=== PATIENT | female | born 1940 | race Caucasian/White ===

== ENCOUNTER 2024-05-06 15:22 | Outpatient (AMB) | payer MEDICARE, OTHER, SELFPAY ==
--- NOTE | 2024-05-06 15:30 | HO.NEPHOV ---
Vital Signs 05/06/24 15:32 Height 5 ft 8 in Weight 216 lb 8 oz BMI 32.9 BP 124/60 Blood Pressure Location Rt brachial Position Sitting Pulse 57 Pulse Source Pulse Oximeter Pulse Oximetry (%) 97 Oxygen Delivery Method Room Air Intake Visit Reasons: Transferring care from Dr Rivera [employer] Operations Manager Required: No Accompanied by: Daughter Allergies adhesive [BANDAGE,ADHESIVE] Allergy (Unknown, Verified 05/06/24 15:35) TOOK OFF THE SKIN empagliflozin [From Synjardy] Allergy (Verified 05/06/24 15:35) Unknown levofloxacin [From LEVAQUIN] Adverse Reaction (Unknown, Verified 05/06/24 15:35) VOMITING atorvastatin [From Lipitor] Adverse Reaction (Verified 05/06/24 15:35) Unknown HPI Comments Details: I had the privilege of seeing Jessica in consultation and transfer of her renal care to me. She is 84 years of age with CAD needing cardiac surgery. She has long standing DM as well hypertension with CKD. Her serum creatinine last year was 1.6. She denies chest pain, SOB, PND, orthopnea, edema, orthostatic symptoms, new bone or back pain, regular NSAID intake, renal calculi, new skin rashes, photosensitivity, epistaxis, joint swellings, hematuria or hypoglycemias. She claims to be compliant with her medications. She denies any symptoms of CVA, CHF, symptoms of PAD. She feels well [facility] Surgical History (Updated 05/06/24 @ 15:37 by Estrellita Lewis MA) History of knee surgery H/O repair of rotator cuff H/O aortic valve replacement Family History (Updated 05/06/24 @ 15:39 by Estrellita Lewis MA) Mother Heart disease Hypertension Father Heart disease Hypertension Daughter Diabetes Kidney transplanted Social History (Updated 05/06/24 @ 15:39 by Estrellita Lewis MA) Alcohol intake: current Comment: Rare Patient Tobacco Use Status: Never used Tobacco Review of Systems Const All systems reviewed & are unremarkable except as noted in HPI and below Physical Exam Vital Signs: Last Vital Signs Pulse 57 05/06/24 15:32 BP 124/60 05/06/24 15:32 Pulse Ox 97 05/06/24 15:32 Oxygen Delivery Method Room Air 05/06/24 15:32 BMI result Body Mass Index 32.9 Const General: comfortable and no acute distress Orientation/consciousness: patient oriented x3 HEENT Head: Yes normocephalic Mouth: Normal oral and palatal mucosa present Eyes EOM: EOMs intact bilaterally Neck Neck: Yes supple Resp Auscultation: clear to auscultation bilaterally Cardio Jugular venous distension: no JVD Rate: regular rate GI Palpation (GI): Soft to palpation Auscultation: normal bowel sounds General: Yes no CVA tenderness Back/Spine/Pelvis Back: no CVA tenderness Skin General skin exam: no rashes or lesions noted Neuro General: patient oriented x3 and moves all extremities Extrem General: Yes no pedal edema Results Reviewed Nephrology Results: No Data to Display Assessment & Plan Assessment & Plan (1) CKD stage 3a, GFR 45-59 ml/min: Code(s): N18.31 - Chronic kidney disease, stage 3a Category: Medical (2) Hypertension: Code(s): I10 - Essential (primary) hypertension Category: Medical Qualifiers: Hypertension type: primary hypertension Qualified Code(s): I10 - Essential (primary) hypertension Plan 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 She has good Urine output. She is euvolemic. Her BP has been at goal. She is a great candidate for Jardiance/Farxiga. She should maintain good hydration and avoids NSAID's. Follow up blood work ordered. Plan to do renal imaging at next visit. Time spent retreiving data from [facility] [place], old renal records, patient encounter, documentation 57 minutes. All questions answered. Follow up given Orders: Orders Phosphorus Today I10 - Essential (primary) hypertension, N18.31 - Chronic kidney disease, stage 3a Creatinine Today I10 - Essential (primary) hypertension, N18.31 - Chronic kidney disease, stage 3a Blood Urea Nitrogen Today I10 - Essential (primary) hypertension, N18.31 - Chronic kidney disease, stage 3a Electrolytes Today I10 - Essential (primary) hypertension, N18.31 - Chronic kidney disease, stage 3a Calcium Today I10 - Essential (primary) hypertension, N18.31 - Chronic kidney disease, stage 3a Complete Blood Count Auto Diff Today I10 - Essential (primary) hypertension, N18.31 - Chronic kidney disease, stage 3a Parathyroid Hormone Intact Today I10 - Essential (primary) hypertension, N18.31 - Chronic kidney disease, stage 3a Vitamin D 25-OH Total Today I10 - Essential (primary) hypertension, N18.31 - Chronic kidney disease, stage 3a Protein Creatinine Ratio, Ur Today I10 - Essential (primary) hypertension, N18.31 - Chronic kidney disease, stage 3a Medications: New spironolactone 50 mg PO DAILY 90 tabs 4RF Coding Level of Care Code New Pt Level 5 (86538) Diagnoses CKD stage 3a, GFR 45-59 ml/min N18.31 Primary hypertension I10 Hypertension type: primary hypertension
[2024-05-06 15:32] VITALS: BP 124/60; PULSE 57; O2SAT 97; BMI 32.9
== END 2024-05-06 16:15 | disposition home or self-care (01) ==
PROVIDERS: PCP Internal Medicine; Visit Provider Internal Medicine Nephrology
DX: I12.9 Hypertensive chronic kidney disease with stage 1 through stage 4 chronic kidney disease, or unspecified chronic kidney disease (principal); E11.22 Type 2 diabetes mellitus with diabetic chronic kidney disease; N18.31 Chronic kidney disease, stage 3a
CPT/HCPCS: 99204

== ENCOUNTER → 2024-05-06 15:22 | Outpatient (BNVA) | payer MEDICARE, OTHER, SELFPAY | PROVIDERS: PCP Internal Medicine; Visit Provider Internal Medicine Nephrology | DX: E11.22 Type 2 diabetes mellitus with diabetic chronic kidney disease (principal); I12.9 Hypertensive chronic kidney disease with stage 1 through stage 4 chronic kidney disease, or unspecified chronic kidney disease; N18.31 Chronic kidney disease, stage 3a | CPT/HCPCS: 99202 ==

== ENCOUNTER 2024-06-07 09:26 | Outpatient (REF) | payer MEDICARE, OTHER, SELFPAY ==
[2024-06-07 09:56] LABS: MANUAL DIFF FLAG NO
[2024-06-07 10:55] LABS: Basophils Absolute Auto 0.1 X10*3/uL (0.0-0.2); Basophils Percent Auto 0.6 % (0-2); Eosinophils Absolute Auto 0.7 X10*3/uL (0.0-0.4); Eosinophils Percent Auto 8.5 % (0-4); Hematocrit 37.3 % (37.0-47.0); Imm Gran Abs Auto 0.03 X10*3/uL (0.00-0.03); Imm Gran Pct Auto 0.4 % (0.0-0.4); Lymphocytes Absolute Auto 2.3 X10*3/uL (1.2-4.9); Lymphocytes Percent Auto 28.7 % (20-40); Mean Corpuscular HGB Conc 32.2 g/dl (31.0-35.0); Mean Corpuscular Volume 96.4 fL (80.0-98.0); Monocytes Absolute Auto 0.7 X10*3/uL (0.1-1.2); Monocytes Percent Auto 9.2 % (2-11); Neutrophils Absolute Auto 4.2 x10*3/uL (2.0-8.3); Neutrophils Percent Auto 52.6 % (45-73); Platelet Count 133 X10*3/uL (160-400); Red Blood Count 3.87 X10*6/uL (4.20-5.50); Red Cell Distribution Width 13.9 % (11.0-16.0); White Blood Count 7.9 X10*3/uL (4.8-10.8)
[2024-06-07 11:23] LABS: Parathyroid Hormone Intact 112.4 pg/mL (8.7-77.1)
[2024-06-07 11:29] LABS: Anion Gap 13 (12-20); Blood Urea Nitrogen 31 mg/dL (9-16); Calcium 9.4 mg/dL (8.4-10.2); Carbon Dioxide 25 mmol/L (22-29); Chloride 109 mmol/L (96-108); Estimated Glomerular Filt Rate 20; Phosphorus 3.6 mg/dL (2.7-4.5); Potassium 4.4 mmol/L (3.3-5.1); Sodium 143 mmol/L (135-145)
[2024-06-07 11:50] LABS: Vitamin D 25-OH Total 58.1 ng/mL (>30)
== END 2024-06-07 09:27 | disposition home or self-care (01) ==
LOC: HO.LAB 09:26
PROVIDERS: Internal Medicine Nephrology; PCP Internal Medicine; Visit Provider Internal Medicine
DX: N18.31 Chronic kidney disease, stage 3a (principal); I10 Essential (primary) hypertension
CPT/HCPCS: 36415; 80051; 82306; 82310; 82565; 83970; 84100; 84520; 85025

== ENCOUNTER 2024-06-30 09:55 | Outpatient (REF) | payer MEDICARE, OTHER, SELFPAY ==
[2024-06-30 11:30] LABS: Anion Gap 16 (12-20); Blood Urea Nitrogen 32 mg/dL (9-16); Carbon Dioxide 17 mmol/L (22-29); Chloride 111 mmol/L (96-108); Estimated Glomerular Filt Rate 22; Potassium 4.6 mmol/L (3.3-5.1); Sodium 139 mmol/L (135-145)
[2024-06-30 12:07] LABS: Creatinine Urine 84.63 mg/dL; Protein/Creatinine Ratio, Ur 0.95 (<0.2); Total Protein Urine Random 80 mg/dL (<12)
== END 2024-06-30 09:56 | disposition home or self-care (01) ==
LOC: HO.LAB 09:55
PROVIDERS: PCP Internal Medicine; Visit Provider Internal Medicine Nephrology
DX: I12.9 Hypertensive chronic kidney disease with stage 1 through stage 4 chronic kidney disease, or unspecified chronic kidney disease (principal); N18.31 Chronic kidney disease, stage 3a
CPT/HCPCS: 36415; 80051; 82565; 82570; 84156; 84520

== ENCOUNTER 2024-07-26 10:43 | Outpatient (REF) | payer MEDICARE, OTHER, SELFPAY ==
[2024-07-26 12:58] LABS: Anion Gap 16 (12-20); Blood Urea Nitrogen 45 mg/dL (9-16); Carbon Dioxide 14 mmol/L (22-29); Chloride 113 mmol/L (96-108); Estimated Glomerular Filt Rate 11; Potassium 4.5 mmol/L (3.3-5.1); Sodium 138 mmol/L (135-145)
== END 2024-07-26 10:44 | disposition home or self-care (01) ==
LOC: HO.LAB 10:43
PROVIDERS: PCP Internal Medicine; Visit Provider Internal Medicine Nephrology
DX: N18.31 Chronic kidney disease, stage 3a (principal); I10 Essential (primary) hypertension
CPT/HCPCS: 36415; 80051; 82565; 84520

== ENCOUNTER 2024-07-27 14:16 | Outpatient (AMB) | payer MEDICARE, OTHER, SELFPAY ==
--- NOTE | 2024-07-27 14:50 | HO.NEPHOV ---
Vital Signs 07/27/24 14:52 Height 5 ft 8 in Weight 209 lb BMI 31.8 BP 122/70 Blood Pressure Location Lt brachial Position Sitting Pulse 66 Pulse Source Pulse Oximeter Pulse Oximetry (%) 97 Oxygen Delivery Method Room Air Intake Visit Reasons: CKD District Court Administrator Required: No Accompanied by: Self / Same As Patient Allergies adhesive [BANDAGE,ADHESIVE] Allergy (Unknown, Verified 07/27/24 14:51) TOOK OFF THE SKIN empagliflozin [From Synjardy] Allergy (Verified 07/27/24 14:51) Unknown levofloxacin [From LEVAQUIN] Adverse Reaction (Unknown, Verified 07/27/24 14:51) VOMITING atorvastatin [From Lipitor] Adverse Reaction (Verified 07/27/24 14:51) Unknown HPI Comments Details: Jessica was seen in follow up for CKD . She is 84 years of age with CAD needing cardiac surgery. She has long standing DM as well hypertension with CKD. Her serum creatinine last year was 1.6 which has been progressing . She denies chest pain, SOB, PND, orthopnea, edema, orthostatic symptoms, new bone or back pain, regular NSAID intake, renal calculi, new skin rashes, photosensitivity, epistaxis, joint swellings, hematuria or hypoglycemias. She claims to be compliant with her medications. She denies any symptoms of CVA, CHF, symptoms of PAD. She feels well except for low blood sugars [facility] Surgical History History of knee surgery H/O repair of rotator cuff H/O aortic valve replacement Family History Mother Heart disease Hypertension Father Heart disease Hypertension Daughter Diabetes Kidney transplanted Social History Alcohol intake: current Comment: Rare Patient Tobacco Use Status: Never used Tobacco Review of Systems Const All systems reviewed & are unremarkable except as noted in HPI and below Physical Exam Vital Signs: Last Vital Signs Pulse 66 07/27/24 14:52 BP 122/70 07/27/24 14:52 Pulse Ox 97 07/27/24 14:52 Oxygen Delivery Method Room Air 07/27/24 14:52 BMI result Body Mass Index 31.8 Const General: comfortable and no acute distress Orientation/consciousness: patient oriented x3 HEENT Head: Yes normocephalic Mouth: Normal oral and palatal mucosa present Eyes EOM: EOMs intact bilaterally Neck Neck: Yes supple Resp Auscultation: clear to auscultation bilaterally Cardio Jugular venous distension: no JVD Rate: regular rate GI Palpation (GI): Soft to palpation Auscultation: normal bowel sounds General: Yes no CVA tenderness Back/Spine/Pelvis Back: no CVA tenderness Skin General skin exam: no rashes or lesions noted Neuro General: patient oriented x3 and moves all extremities Extrem General: Yes no pedal edema Results Reviewed Nephrology Results: Hgb 12.0 g/dl (12.0-16.0) 06/07/24 WBC 7.9 X10*3/uL (4.8-10.8) 06/07/24 Plt Count 133 X10*3/uL (160-400) L 06/07/24 Sodium 138 mmol/L (135-145) 07/26/24 Potassium 4.5 mmol/L (3.3-5.1) 07/26/24 Chloride 113 mmol/L (96-108) H 07/26/24 Carbon Dioxide 14 mmol/L (22-29) L 07/26/24 BUN 45 mg/dL (9-16) H 07/26/24 Creatinine 3.77 mg/dL (0.5-1.4) H 07/26/24 Calcium 9.4 mg/dL (8.4-10.2) 06/07/24 Phosphorus 3.6 mg/dL (2.7-4.5) 06/07/24 PTH Intact 112.4 pg/mL (8.7-77.1) H 06/07/24 Urine Creatinine 84.63 mg/dL 06/30/24 Protein/Creatinin Ratio 0.95 (<0.2) H 06/30/24 Assessment & Plan Assessment & Plan (1) DINO (acute kidney injury): Code(s): N17.9 - Acute kidney failure, unspecified Category: Medical (2) Hypertension: Code(s): I10 - Essential (primary) hypertension Category: Medical Qualifiers: Hypertension type: primary hypertension Qualified Code(s): I10 - Essential (primary) hypertension (3) CKD stage 3a, GFR 45-59 ml/min: Code(s): N18.31 - Chronic kidney disease, stage 3a Category: Medical Plan 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 She has good urine output. She has DINO now, most likely due to tubular injury. Differential diagnosis is progression of her renal disease. I asked her to hold lasix, vitamin C, Gabapentin ( as she is having tremors) and reduce Metformin to 500 mg bid. I also started her on NaHCO3 650 mg bid given metabolic acidosis. She is euvolemic. She is a great candidate for Jardiance/Farxiga once her renal function is back to baseline. She should maintain good hydration and avoids NSAID's. Follow up blood work ordered. Plan to do renal imaging at next visit, if needed. All questions answered. Follow up given Orders: Orders Creatinine 2 Weeks I10 - Essential (primary) hypertension, N17.9 - Acute kidney failure, unspecified, N18.31 - Chronic kidney disease, stage 3a Electrolytes 2 Weeks I10 - Essential (primary) hypertension, N17.9 - Acute kidney failure, unspecified, N18.31 - Chronic kidney disease, stage 3a Blood Urea Nitrogen 2 Weeks I10 - Essential (primary) hypertension, N17.9 - Acute kidney failure, unspecified, N18.31 - Chronic kidney disease, stage 3a Medications: New sodium bicarbonate 650 mg PO BID 30 tabs 1RF Coding Level of Care Code Est Pt Level 4 (56663) Diagnoses DINO (acute kidney injury) N17.9 Primary hypertension I10 Hypertension type: primary hypertension CKD stage 3a, GFR 45-59 ml/min N18.31
[2024-07-27 14:52] VITALS: BP 122/70; PULSE 66; O2SAT 97; BMI 31.8
== END 2024-07-27 15:19 | disposition home or self-care (01) ==
PROVIDERS: PCP Internal Medicine; Visit Provider Internal Medicine Nephrology
DX: N17.9 Acute kidney failure, unspecified (principal); I12.9 Hypertensive chronic kidney disease with stage 1 through stage 4 chronic kidney disease, or unspecified chronic kidney disease; N18.31 Chronic kidney disease, stage 3a
CPT/HCPCS: 99214

== ENCOUNTER → 2024-07-27 14:16 | Outpatient (BNVA) | payer MEDICARE, OTHER, SELFPAY | PROVIDERS: PCP Internal Medicine; Visit Provider Internal Medicine Nephrology | DX: I12.9 Hypertensive chronic kidney disease with stage 1 through stage 4 chronic kidney disease, or unspecified chronic kidney disease (principal); N18.31 Chronic kidney disease, stage 3a; N17.9 Acute kidney failure, unspecified | CPT/HCPCS: 99212 ==

== ENCOUNTER 2024-08-11 13:38 | Outpatient (REF) | payer MEDICARE, OTHER, SELFPAY ==
[2024-08-11 14:29] LABS: Anion Gap 17 (12-20); Blood Urea Nitrogen 32 mg/dL (9-16); Carbon Dioxide 19 mmol/L (22-29); Chloride 110 mmol/L (96-108); Estimated Glomerular Filt Rate 13; Potassium 3.6 mmol/L (3.3-5.1); Sodium 142 mmol/L (135-145)
== END 2024-08-11 13:39 | disposition home or self-care (01) ==
LOC: HO.LAB 13:38
PROVIDERS: PCP Internal Medicine; Visit Provider Internal Medicine Nephrology
DX: N17.9 Acute kidney failure, unspecified (principal); I10 Essential (primary) hypertension; N18.31 Chronic kidney disease, stage 3a
CPT/HCPCS: 36415; 80051; 82565; 84520

== ENCOUNTER 2024-08-12 10:42 | Outpatient (AMB) | payer MEDICARE, OTHER, SELFPAY ==
--- NOTE | 2024-08-12 11:14 | HO.NEPHOV ---
Vital Signs 08/12/24 11:15 Height 5 ft 8 in Weight 205 lb BMI 31.2 BP 100/60 Blood Pressure Location Rt brachial Position Sitting Pulse 53 Pulse Source Pulse Oximeter Pulse Oximetry (%) 98 Oxygen Delivery Method Room Air Intake Visit Reasons: CKD-conf Loss Prevention Supervisor Required: No Accompanied by: Daughter Allergies adhesive [BANDAGE,ADHESIVE] Allergy (Unknown, Verified 08/12/24 11:15) TOOK OFF THE SKIN empagliflozin [From Synjardy] Allergy (Verified 08/12/24 11:15) Unknown levofloxacin [From LEVAQUIN] Adverse Reaction (Unknown, Verified 08/12/24 11:15) VOMITING atorvastatin [From Lipitor] Adverse Reaction (Verified 08/12/24 11:15) Unknown HPI Comments Details: Jessica was seen in follow up for CKD . She is 84 years of age with H/O CKD as well as CAD needing cardiac surgery. She has long standing DM as well hypertension with CKD. Her serum creatinine last year was 1.6 which has been progressing . She denies chest pain, SOB, PND, orthopnea, edema, orthostatic symptoms, new bone or back pain, regular NSAID intake, renal calculi, new skin rashes, photosensitivity, epistaxis, joint swellings, hematuria or hypoglycemias. She claims to be compliant with her medications. She denies any symptoms of CVA, CHF, symptoms of PAD. She feels improved since last visit with medication changes. [facility] Surgical History History of knee surgery H/O repair of rotator cuff H/O aortic valve replacement Family History Mother Heart disease Hypertension Father Heart disease Hypertension Daughter Diabetes Kidney transplanted Social History Alcohol intake: current Comment: Rare Patient Tobacco Use Status: Never used Tobacco Review of Systems Const All systems reviewed & are unremarkable except as noted in HPI and below Physical Exam Vital Signs: Last Vital Signs Pulse 53 08/12/24 11:15 BP 100/60 08/12/24 11:15 Pulse Ox 98 08/12/24 11:15 Oxygen Delivery Method Room Air 08/12/24 11:15 BMI result Body Mass Index 31.2 Const General: comfortable and no acute distress Orientation/consciousness: patient oriented x3 HEENT Head: Yes normocephalic Mouth: Normal oral and palatal mucosa present Eyes EOM: EOMs intact bilaterally Neck Neck: Yes supple Resp Auscultation: clear to auscultation bilaterally Cardio Jugular venous distension: no JVD Rate: regular rate GI Palpation (GI): Soft to palpation Auscultation: normal bowel sounds General: Yes no CVA tenderness Back/Spine/Pelvis Back: no CVA tenderness Skin General skin exam: no rashes or lesions noted Neuro General: patient oriented x3 and moves all extremities Extrem General: Yes no pedal edema Results Reviewed Nephrology Results: Hgb 12.0 g/dl (12.0-16.0) 06/07/24 WBC 7.9 X10*3/uL (4.8-10.8) 06/07/24 Plt Count 133 X10*3/uL (160-400) L 06/07/24 Sodium 142 mmol/L (135-145) 08/11/24 Potassium 3.6 mmol/L (3.3-5.1) 08/11/24 Chloride 110 mmol/L (96-108) H 08/11/24 Carbon Dioxide 19 mmol/L (22-29) L 08/11/24 BUN 32 mg/dL (9-16) H 08/11/24 Creatinine 3.34 mg/dL (0.5-1.4) H 08/11/24 Calcium 9.4 mg/dL (8.4-10.2) 06/07/24 Phosphorus 3.6 mg/dL (2.7-4.5) 06/07/24 PTH Intact 112.4 pg/mL (8.7-77.1) H 06/07/24 Urine Creatinine 84.63 mg/dL 06/30/24 Protein/Creatinin Ratio 0.95 (<0.2) H 06/30/24 Assessment & Plan Assessment & Plan (1) DINO (acute kidney injury): Code(s): N17.9 - Acute kidney failure, unspecified Category: Medical (2) CKD stage 3a, GFR 45-59 ml/min: Code(s): N18.31 - Chronic kidney disease, stage 3a Category: Medical (3) Hypertension: Code(s): I10 - Essential (primary) hypertension Category: Medical Qualifiers: Hypertension type: primary hypertension Qualified Code(s): I10 - Essential (primary) hypertension Plan 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 She has good urine output. She recently had DINO , most likely due to tubular injury. Differential diagnosis has been progression of her renal disease. I asked her to hold lasix, vitamin C, Gabapentin ( as she is having tremors) and reduce Metformin to 500 mg bid @ the last visit. She could continue on NaHCO3 650 mg bid. She is euvolemic. She is a great candidate for Jardiance once her renal function is back to baseline. She should maintain good hydration and avoids NSAID's. Follow up blood work ordered. Plan to do renal imaging at next visit, if needed. All questions answered. Follow up given Orders: Orders Creatinine 2 Weeks N17.9 - Acute kidney failure, unspecified, N18.31 - Chronic kidney disease, stage 3a, I10 - Essential (primary) hypertension Blood Urea Nitrogen 2 Weeks N17.9 - Acute kidney failure, unspecified, N18.31 - Chronic kidney disease, stage 3a, I10 - Essential (primary) hypertension Electrolytes 2 Weeks N17.9 - Acute kidney failure, unspecified, N18.31 - Chronic kidney disease, stage 3a, I10 - Essential (primary) hypertension Coding Level of Care Code Est Pt Level 4 (84036) Diagnoses DINO (acute kidney injury) N17.9 CKD stage 3a, GFR 45-59 ml/min N18.31 Primary hypertension I10 Hypertension type: primary hypertension
[2024-08-12 11:15] VITALS: BP 100/60; PULSE 53; O2SAT 98; BMI 31.2
== END 2024-08-12 11:48 | disposition home or self-care (01) ==
PROVIDERS: PCP Internal Medicine; Visit Provider Internal Medicine Nephrology
DX: I12.9 Hypertensive chronic kidney disease with stage 1 through stage 4 chronic kidney disease, or unspecified chronic kidney disease (principal); N17.9 Acute kidney failure, unspecified; N18.31 Chronic kidney disease, stage 3a
CPT/HCPCS: 99214

== ENCOUNTER → 2024-08-12 10:42 | Outpatient (BNVA) | payer MEDICARE, OTHER, SELFPAY | PROVIDERS: PCP Internal Medicine; Visit Provider Internal Medicine Nephrology | DX: I12.9 Hypertensive chronic kidney disease with stage 1 through stage 4 chronic kidney disease, or unspecified chronic kidney disease (principal); E11.22 Type 2 diabetes mellitus with diabetic chronic kidney disease; N18.31 Chronic kidney disease, stage 3a; N17.9 Acute kidney failure, unspecified; I25.10 Atherosclerotic heart disease of native coronary artery without angina pectoris | CPT/HCPCS: 99212 ==

== ENCOUNTER 2024-08-30 10:39 | Outpatient (REF) | payer MEDICARE, OTHER, SELFPAY ==
[2024-08-30 12:41] LABS: Anion Gap 13 (12-20); Blood Urea Nitrogen 22 mg/dL (9-16); Carbon Dioxide 23 mmol/L (22-29); Chloride 111 mmol/L (96-108); Estimated Glomerular Filt Rate 30; Potassium 4.9 mmol/L (3.3-5.1); Sodium 142 mmol/L (135-145)
== END 2024-08-30 10:40 | disposition home or self-care (01) ==
LOC: HO.LAB 10:39
PROVIDERS: PCP Internal Medicine; Visit Provider Internal Medicine Nephrology
DX: N17.9 Acute kidney failure, unspecified (principal); N18.31 Chronic kidney disease, stage 3a; I12.9 Hypertensive chronic kidney disease with stage 1 through stage 4 chronic kidney disease, or unspecified chronic kidney disease
CPT/HCPCS: 36415; 80051; 82565; 84520

== ENCOUNTER 2024-08-31 11:44 | Outpatient (AMB) | payer MEDICARE, OTHER, SELFPAY ==
--- NOTE | 2024-08-31 11:55 | HO.NEPHOV ---
Vital Signs 08/31/24 11:56 Height 5 ft 8 in Intake Visit Reasons: 1 mo fu w/ labs Savings Teller Required: No Accompanied by: Self / Same As Patient Allergies adhesive [BANDAGE,ADHESIVE] Allergy (Unknown, Verified 08/31/24 11:55) TOOK OFF THE SKIN empagliflozin [From Synjardy] Allergy (Verified 08/31/24 11:55) Unknown levofloxacin [From LEVAQUIN] Adverse Reaction (Unknown, Verified 08/31/24 11:55) VOMITING atorvastatin [From Lipitor] Adverse Reaction (Verified 08/31/24 11:55) Unknown HPI Comments Details: Jessica was seen in follow up for CKD . She is 84 years of age with H/O CKD as well as CAD needing cardiac surgery. She has long standing DM as well hypertension with CKD. Her serum creatinine last year was 1.6 which has been progressing . She denies chest pain, SOB, PND, orthopnea, edema, orthostatic symptoms, new bone or back pain, regular NSAID intake, renal calculi, new skin rashes, photosensitivity, epistaxis, joint swellings, hematuria or hypoglycemias. She claims to be compliant with her medications. She denies any symptoms of CVA, CHF, symptoms of PAD. She feels improved with medication changes. [facility] Surgical History History of knee surgery H/O repair of rotator cuff H/O aortic valve replacement Family History Mother Heart disease Hypertension Father Heart disease Hypertension Daughter Diabetes Kidney transplanted Social History Alcohol intake: current Comment: Rare Patient Tobacco Use Status: Never used Tobacco Review of Systems Const All systems reviewed & are unremarkable except as noted in HPI and below Telehealth Telehealth Telehealth Platform: Telephone Location of provider rendering services: practice address Location of patient: address on file Patient Identification confirmed using: Name, : Yes Telehealth method: voice only Patient verbally consented to treatment: Yes Patient verbally consented to billing insurance company: Yes Patient informed of any privacy concerns related to visit: No Minutes spent on Phone/Video with Pt.: 10 Results Reviewed Nephrology Results: Hgb 12.0 g/dl (12.0-16.0) 06/07/24 WBC 7.9 X10*3/uL (4.8-10.8) 06/07/24 Plt Count 133 X10*3/uL (160-400) L 06/07/24 Sodium 142 mmol/L (135-145) 08/30/24 Potassium 4.9 mmol/L (3.3-5.1) 08/30/24 Chloride 111 mmol/L (96-108) H 08/30/24 Carbon Dioxide 23 mmol/L (22-29) 08/30/24 BUN 22 mg/dL (9-16) H 08/30/24 Creatinine 1.64 mg/dL (0.5-1.4) H 08/30/24 Calcium 9.4 mg/dL (8.4-10.2) 06/07/24 Phosphorus 3.6 mg/dL (2.7-4.5) 06/07/24 PTH Intact 112.4 pg/mL (8.7-77.1) H 06/07/24 Urine Creatinine 84.63 mg/dL 06/30/24 Protein/Creatinin Ratio 0.95 (<0.2) H 06/30/24 Assessment & Plan Assessment & Plan (1) DINO (acute kidney injury): Code(s): N17.9 - Acute kidney failure, unspecified Category: Medical (2) CKD stage 3a, GFR 45-59 ml/min: Code(s): N18.31 - Chronic kidney disease, stage 3a Category: Medical (3) Hypertension: Code(s): I10 - Essential (primary) hypertension Category: Medical Qualifiers: Hypertension type: primary hypertension Qualified Code(s): I10 - Essential (primary) hypertension Plan 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 She has good urine output. She recently had DINO , most likely due to tubular injury which has improved . Differential diagnosis has been progression of her renal disease. She could continue to hold vitamin C, Gabapentin .She could stop her NaHCO3 650 mg bid. She is euvolemic. She is a great candidate for Jardiance once her renal function is back to baseline. She should maintain good hydration and avoids NSAID's. Follow up blood work ordered. All questions answered. Follow up given in one month Orders: Orders Creatinine 5 Weeks I10 - Essential (primary) hypertension, N17.9 - Acute kidney failure, unspecified, N18.31 - Chronic kidney disease, stage 3a Electrolytes 5 Weeks I10 - Essential (primary) hypertension, N17.9 - Acute kidney failure, unspecified, N18.31 - Chronic kidney disease, stage 3a Blood Urea Nitrogen 5 Weeks I10 - Essential (primary) hypertension, N17.9 - Acute kidney failure, unspecified, N18.31 - Chronic kidney disease, stage 3a Coding Level of Care Code Est Pt Level 4 (23599) Diagnoses DINO (acute kidney injury) N17.9 CKD stage 3a, GFR 45-59 ml/min N18.31 Primary hypertension I10 Hypertension type: primary hypertension
== END 2024-08-31 13:08 | disposition home or self-care (01) ==
PROVIDERS: PCP Internal Medicine; Visit Provider Internal Medicine Nephrology
DX: N17.9 Acute kidney failure, unspecified (principal); I12.9 Hypertensive chronic kidney disease with stage 1 through stage 4 chronic kidney disease, or unspecified chronic kidney disease; N18.31 Chronic kidney disease, stage 3a
CPT/HCPCS: 99214

== ENCOUNTER → 2024-08-31 11:44 | Outpatient (BNVA) | payer MEDICARE, OTHER, SELFPAY | PROVIDERS: PCP Internal Medicine; Visit Provider Internal Medicine Nephrology | DX: I12.9 Hypertensive chronic kidney disease with stage 1 through stage 4 chronic kidney disease, or unspecified chronic kidney disease (principal); N18.31 Chronic kidney disease, stage 3a; N17.9 Acute kidney failure, unspecified | CPT/HCPCS: 99212 ==

== ENCOUNTER 2024-10-03 10:39 | Outpatient (REF) | payer MEDICARE, OTHER, SELFPAY ==
--- OUTSIDE RECORDS SUMMARY | 2024-10-03 11:41 | XMS_ITS | Encounter Summary ---
Author Organization [facility] Address [address] [place] [address] Care Team Providers Care Manager Wellness Name Role Phone Renny Ramirez MD Primary Care Provider [phone] Reason for Visit * Reason Comments Diabetes FSBS- 77 fasting Encounter Details Date Type Department Care Team (Late st Contact Info) Description 09/08/2024 11:00 AM EST Office Visit Adult Medicine [address] [phone] Renny Ramirez MD [address] [place] [id number] Type 2 diabetes mellitus with stage 4 chronic kidney disease, with long-term current use of insulin (CMS/HCC) (Primary Dx); Pure hypercholesterolemia; Encounter for long-term (current) use of medications; Stage 4 chronic kidney disease (CMS/HCC); Microalbuminuria; Spinal stenosis of lumbar region, unspecified whether neurogenic claudication present; Osteoarthritis of knee, unspecified laterality, unspecified osteoarthritis type; Essential hypertension, benign Social History Tobacco Use Types Packs/Day Years Used Date Smoking Tobacco: Never Smokeless Tobacco: Never Tobacco Cessation:Counseling Given: Not Answered Alcohol Use Standard Drinks/Week Comments No 0 (1 standard drink = 0.6 oz pur e alcohol) Comments No Sex and Gender Information Value Date Recorded Sex Assigned at Not on file Legal Sex Female 5:11 AM EST Gender Identity Not on file Sexual Orientation Not on file documented as of this encounter Last Filed Vital Signs Vital Sign Reading Time Taken Comments Blood Pressure 130/70 09/08/2024 11:15 AM EST Pulse 60 09/08/2024 11:15 AM EST Temperature 36.8 ??C (98.2 ??F) 09/08/2024 11:[address] Respiratory Rate 14 09/08/2024 11:15 AM EST Oxygen Saturation - - Inhaled Oxygen Concentration - - Weight 97.5 kg (215 lb) 09/08/2024 11:15 AM EST Height 172.7 cm (5' 8 ) 09/08/2024 11:15 AM EST Body Mass Index 32.69 09/08/2024 11:15 AM EST documented in this encounter Progress Notes * Renny Ramirez MD - 09/08/2024 11:00 AM EST CHIEF COMPLAINT: Diabetes (FSBS- 77 fasting) IDENTIFIER: Jessica White is a 84 y.o. old female. HPI: Pt with diabetes Pt is was on metformin decreased to 500 mg due to renal issues pt was 1000 mg bid Pt is on lantus 10 Pt then notes sugar 70's -80's in the am pt notes feel shaky Pt last a1c 7.0 05/2024 stable from previous check Pt last ldl 76 02/2024 Pt high intensity statin therapy Pt last microalb/cr ratio 1286 05/2024 Last gfr 20 Pt follows with renal(bree) seen last fall 2022 Miguel as retired and is the process of switching over to Dr Niels Gomez pt has appointment 10/14/2024 Pt with htn pt is on aldactone 50 mg,lasix 20 mg 5 days weekly , metoprolol 50 mg bid bp today at goal at 130/70 Pt denies dizziness head/dizziness, shortness of breath , chest pain . Pt with lower ext edema stable pt wears compression stockings Pt with chronic pain 2nd to knee oa and spinal stenosis Pt is on csc for tramadol 50 mg bid Pt notes pain is tolerable on current regimen Pt notes pain intensity 5/10 ROS: GENERAL: Negative for malaise, significant weight loss and fever RESPIRATORY: No cough, wheezing or shortness of breath CARDIOVASCULAR: Negative for chest pain, leg swelling and palpitations MUSCULOSKELETAL: See HPI PAST MEDICAL HISTORY: Patient Active Problem List Diagnosis Date Noted Dyspnea on exertion 07/14/2024 Low back pain 07/14/2024 Osteoarthritis 07/14/2024 Unsteady gait when walking 07/14/2024 Aortic valve stenosis 07/14/2024 Arteriosclerosis of coronary artery 07/14/2024 Spinal stenosis of lumbar region 07/14/2024 Obesity with body mass index 30 or greater 07/14/2024 Thoracic compression fracture ([facility]) 10/27/2023 Hiatal hernia 08/18/2023 Gastroesophageal reflux disease without esophagitis 08/18/2023 Stage 3b chronic kidney disease (CMS/HCC) 06/25/2023 Palpitations 06/25/2023 CKD (chronic kidney disease) 06/25/2023 Dilated cardiomyopathy ([facility]) 12/01/2022 Cardiac murmur 04/15/2022 Dyspnea on exertion 04/15/2022 Hypertension 04/15/2022 Hypertensive heart and renal disease with (congestive) heart failure ([facility]) 04/15/2022 Osteoarthritis 04/15/2022 Acute nontraumatic kidney injury ([facility]) 04/15/2022 Stage 1 chronic kidney disease 04/15/2022 Coronary arteriosclerosis 04/15/2022 Gastroesophageal reflux disease 04/15/2022 Diabetes mellitus ([facility]) 04/15/2022 History of aortic valve replacement 12/25/2020 Primary osteoarthritis of both knees 07/30/2020 Bilateral carpal tunnel syndrome 08/14/2018 Atrial fibrillation ([facility]) 03/22/2018 Coronary artery disease due to lipid rich plaque 12/28/2017 Aortic stenosis, moderate 12/28/2017 Moderate aortic valve stenosis 12/28/2017 Other chest pain 08/26/2017 Chest pain 08/26/2017 Cholelithiasis 04/23/2017 Biliary calculus 04/23/2017 Osteoporosis 04/08/2017 Diabetes mellitus type 2 with neurological manifestations ([facility]) 03/31/2016 Disorder of nervous system due to type 2 diabetes mellitus ([facility]) 03/31/2016 Onychomycosis 09/10/2015 Obesity (BMI 30.0-34.9) 02/14/2014 Type 1 diabetes mellitus ([facility]) 02/14/2014 Type II or unspecified type diabetes mellitus with ophthalmic manifestations, uncontrolled(250.52) ([facility]) 02/14/2014 Morbid obesity ([facility]) 02/14/2014 Microalbuminuria 08/16/2012 Lumbar spinal stenosis 05/31/2008 Hyperlipidemia 11/18/2005 Heartburn 11/18/2005 Essential hypertension, benign 11/18/2005 Type II diabetes mellitus with renal manifestations ([facility]) 11/18/2005 Edema 11/18/2005 Benign essential hypertension 11/18/2005 Hyperlipidemia 11/18/2005 SOCIAL HISTORY: Social History Tobacco Use Smoking status: Never Smokeless tobacco: Never Substance Use Topics Alcohol use: No FAMILY HISTORY: Family Status Relation Name Status Mother Father Brother x 1 Alive Neg Hx (Not Specified) No partnership data on file Family History Problem Relation Name Age of Onset Heart attack Mother 74.00 Heart attack Father Diabetes Brother x 1 Breast cancer Neg Hx ACTIVE MEDICATIONS: No outpatient medications have been marked as taking for the 09/08/24 encounter (Appointment) with Renny Ramirez MD. ALLERGIES: Atorvastatin calcium, Diphtheria-tetanus toxoids ped, and Levofloxacin PHYSICAL EXAM: Blood pressure 130/70, pulse 60, temperature 36.8 ??C (98.2 ??F), temperature source Oral, resp. rate 14, height 1.727 m (68 ), weight 97.5 kg (215 lb), not currently . There is no height or weight on file to calculate BMI. Plan is deferred until next visit APPEARANCE: Alert and in no acute distress EYES: PERRLA, conjunctiva and sclera normal HEART: RRR with normal S1 and S2, no murmurs, no gallops, no JVD appreciated LUNG: clear to auscultation bilaterally EXTREMITIES: trace edema pt has on compression stockings LABS: none IMPRESSION: 1. Type 2 diabetes mellitus with stage 4 chronic kidney disease, with long-term current use of insulin ([facility]) 2. Pure hypercholesterolemia 3. Encounter for long-term (current) use of medications 4. Stage 4 chronic kidney disease ([facility]) 5. Microalbuminuria 6. Spinal stenosis of lumbar region, unspecified whether neurogenic claudication present 7. Osteoarthritis of knee, unspecified laterality, unspecified osteoarthritis type 8. Essential hypertension, benign PLAN: Pt with diabetes A1c has been stable at 7.0 pt with gfr of 20 metformin has been reduced I would ? D/c the medication pt dos have f/u with renal next month. Pt notes sugars 70's-80's in the am and notes shakes I will lower the lantus to 8 units. Will update A1c today. Last microalb/cr ration In [id number]'s pt not on juan miguel/arb pt has f/u with renal next month Pt with htn bp acceptable today pt will continue current regimen of aldactone 50 mg,lasix 20 mg 5 days weekly , metoprolol 50 mg bid will check bmp to update renal function and to assess lytes pt with high cholesterol on a statin will check lipid profile and lft's last ldl < 100 pt to continue current statin therapy Pt with chronic pain 2nd to knee oa and spinal stenosis pain is tolerable on current regimen of tramadol to be continued as per [facility] Pt to f/u in 3 months as per [facility] Myself and my colleagues have maintained a long-term, longitudinal relationship with this patient, overseeing care of chronic conditions including diabetes,hypertension and high cholesterol. This care relationship has significantly influenced my decision making and treatment plans during today's encounter. No orders of the defined types were placed in this encounter. ADDITIONAL ORDERS: None Renny Ramirez MD on 09/08/2024 at 10:57 AM EST documented in this encounter Plan of Treatment Upcoming Encounters Date Type Department Care Team (Late st Contact Info) Description 10/04/2024 10:50 AM EST Office Visit [facility] [address] [phone] Braydon Lujan MD [address] [address] 10/12/2024 10:45 AM EST Office Visit Orthopedic Surgery - [place] 250 175 [facility] 250 [place] [phone] Rogers Walter DPM [address] [address] 10/27/2024 2:40 PM EST Office Visit Gastroenterology - [place] 175 [facility] 175 [facility] 200 [place] [phone] Arlene Beard PA [address] [address] 03/01/2025 1:00 PM EDT Appointment Radiology Department - [address] [phone] 03/17/2025 1:00 PM EDT Office Visit Adult Medicine [facility] - [address] [phone] Renny Ramirez MD [address] [place] [address] documented as of this encounter Results * (ABNORMAL) Comprehensive metabolic panel (09/08/2024 12:02 PM EST) Sodium 141 133 - 145 mmol/L LAB CHEMISTRY METHOD 09/08/2024 5:20 PM [facility] Potassium 4.7 3.5 - 5.5 mmol/L LAB CHEMISTRY METHOD 09/08/2024 5:20 PM [facility] Chloride 111(H) 96 - 110 mmol/L LAB CHEMISTRY METHOD 09/08/2024 5:20 PM [facility] CO2 25 21 - 32 mmol/L LAB CHEMISTRY METHOD 09/08/2024 5:20 PM [facility] Anion Gap 5 3 - 11 LAB CHEMISTRY METHOD 09/08/2024 5:20 PM [facility] Glucose 114(H) 70 - 100 mg/dL LAB CHEMISTRY METHOD 09/08/2024 5:20 PM [facility] BUN 18 5 - 25 mg/dL LAB CHEMISTRY METHOD 09/08/2024 5:20 PM [facility] Creatinine 1.67(H) 0.50 - 1.10 mg/dL LAB CHEMISTRY METHOD 09/08/2024 5:20 PM [facility] eGFR 30(L) >=60 mL/min/1. 73m2 LAB CHEMISTRY METHOD 09/08/2024 5:20 PM [facility] Comment:Calculation based on the??Chronic Kidney Disease Epidemiology Collaboration (CKD-EPI) equation refit??without adjustment for race. BUN/Creatinine Ratio 10.8 LAB CHEMISTRY METHOD 09/08/2024 5:20 PM [facility] Calcium 9.0 8.5 - 10.5 mg/dL LAB CHEMISTRY METHOD 09/08/2024 5:20 PM [facility] AST (SGOT) 19 10 - 42 unit/L LAB CHEMISTRY METHOD 09/08/2024 5:20 PM [facility] ALT (SGPT) 13 10 - 60 unit/L LAB CHEMISTRY METHOD 09/08/2024 5:20 PM [facility] Alkaline Phosphatase 87 42 - 121 unit/L LAB CHEMISTRY METHOD 09/08/2024 5:20 PM [facility] Total Protein 5.9(L) 6.0 - 8.0 g/dL LAB CHEMISTRY METHOD 09/08/2024 5:20 PM [facility] Albumin 2.9(L) 3.2 - 5.0 g/dL LAB CHEMISTRY METHOD 09/08/2024 5:20 PM [facility] Total Bilirubin 0.3 0.0 - 1.4 mg/dL LAB CHEMISTRY METHOD 09/08/2024 5:20 PM [facility] Blood Venous blood specimen / Unknown Venipuncture / Unknown 09/08/2024 12:02 PM EST 09/08/2024 12:02 PM EST us Renny Ramirez MD LAB BLOOD ORDERABLES Final Resu lt [facility] [address] [place] [address], [place] [phone] * (ABNORMAL) Lipid panel with reflex to direct LDL (09/08/2024 12:02 PM EST) Cholesterol 153 0 - 200 mg/dL LAB CHEMISTRY METHOD 09/08/2024 5:20 PM [facility] Triglycerides 168(H) 0 - 150 mg/dL LAB CHEMISTRY METHOD 09/08/2024 5:20 PM [facility] HDL 52 >=40 mg/dL LAB CHEMISTRY METHOD 09/08/2024 5:20 PM [facility] LDL Calculated 67 0 - 100 mg/dL LAB CHEMISTRY METHOD 09/08/2024 5:20 PM [facility] VLDL Cholesterol Paul 33.6 mg/dL LAB CHEMISTRY METHOD 09/08/2024 5:20 PM [facility] Non HDL Chol. (LDL+VLDL) 101 <145 mg/dL LAB CHEMISTRY METHOD 09/08/2024 5:20 PM [facility] Chol/HDL Ratio 2.9 0.0 - 4.4 LAB CHEMISTRY METHOD 09/08/2024 5:20 PM EST [facility] Blood Venous blood specimen / Unknown Venipuncture / Unknown 09/08/2024 12:02 PM EST 09/08/2024 12:02 PM EST us Renny Ramirez MD LAB BLOOD ORDERABLES Final Resu lt [facility] [address] [place] [address], * Hemoglobin A1c (09/08/2024 12:02 PM EST) [facility] Hemoglobin A1C 5.7 <6.5 % LAB CHEMISTRY METHOD 09/08/2024 8:51 PM EST [facility] Mean Bld Glu Estim. 117 mg/dL LAB CHEMISTRY METHOD 09/08/2024 8:51 PM [facility] Blood Venous blood specimen / Unknown Venipuncture / Unknown 09/08/2024 12:02 PM EST 09/08/2024 12:02 PM EST us Renny Ramirez MD LAB BLOOD ORDERABLES Final Resu lt [facility] [address] [place] [address], documented in this encounter Visit Diagnoses Diagnosis Type 2 diabetes mellitus with stage 4 chronic kidney disease, with long-term current use of insulin ([facility])- Primary Pure hypercholesterolemia Encounter for long-term (current) use of medications Encounter for long-term (current) use of other medications Stage 4 chronic kidney disease (CMS/[facility]) Microalbuminuria Proteinuria Spinal stenosis of lumbar region, unspecified whether neurogenic claudication present Osteoarthritis of knee, unspecified laterality, unspecified osteoarthritis type Essential hypertension, benign Encounter for screening mammogram for breast cancer documented in this encounter Care Teams Manager Wellness Relationship Specialty Start Date End Date Renny Ramirez MD [address] [place] [id number] PCP - General Internal Medicine 02/14/20 documented as of this encounter
--- OUTSIDE RECORDS SUMMARY | 2024-10-03 11:42 | XMS_ITS | Clinical Summary ---
Author Organization [facility] Address [address] [place] [address] Care Team Providers Care Operations Dispatcher Name Role Phone Renny Ramirez MD Primary Care Provider [phone] Allergies Active Allergy Reactions Criticality Noted Date Comments Atorvastatin Calcium 11/18/2005 liver problems Diphtheria-Tetanus Toxoids Ped 09/06/2009 Other Reaction(s): OTHER Swelling injection site/years ago Levofloxacin 11/18/2005 vomiting Medications furosemide (LASIX) 20 mg tablet TAKE 1 TABLET BY MOUTH 5 DAYS PER WEEK 4 Active aspirin 81 mg chewable tablet CHEW 1 TABLET BY MOUTH EVERY DAY 3 Active metFORMIN (GLUCOPHAGE) 500 mg tablet Take 1 tablet (500 mg total) by mouth 1 (one) time each day with breakfast. 4 Active metoprolol tartrate (LOPRESSOR) 50 mg tablet Take 1 Tablet by mouth 2 times daily. 3 Active rosuvastatin (CRESTOR) 40 mg tablet Take 1 Tablet by mouth at bedtime. 4 Active cetirizine (ZyrTEC) 10 mg tablet TAKE 1 TABLET BY MOUTH EVERY DAY 4 Active solifenacin (VESICARE) 5 mg tablet TAKE 1 TABLET BY MOUTH EVERY DAY 4 Active blood sugar diagnostic (OneTouch Verio test strips) test strip USE TO TEST BLOOD SUGAR TWICE A DAY 4 Active ondansetron (ZOFRAN) 4 mg tablet Take 1 Tablet by mouth every 8 hours as needed for Nausea. 4 Active docusate sodium (COLACE) 100 mg capsule Take 1 Capsule by mouth 2 times daily. Active omega-3 acid ethyl esters (LOVAZA) 1 gram capsule Take by mouth. Activ e vitamin E mixed 400 unit capsule Take 1 Capsule by mouth daily. Active hydrocortisone 2.5 % cream Apply topically 2 times daily. Active coffee xt/phosphatidyl serine (NEURIVA ORIGINAL ORAL) Misc Natural Products (Neuriva) Cap : Take by mouth. - Oral Active vit C/E/Zn/coppr/lut ein/zeaxan (PRESERVISION AREDS-2 ORAL) Multiple Vitamins-[place] als (PreserVision AREDS 2) Cap : Take by mouth. - Oral Active cholecalciferol (VITAMIN D-3) 125 mcg (5,000 unit) capsule Take by mouth. A ctive acetaminophen (TYLENOL) 500 mg tablet Take 1 Tablet by mouth every 6 hours as needed. Active ascorbic acid (VITAMIN C) 250 mg tablet Take 1 Tablet by mouth daily. Active DM/PE/acetaminop hen/doxylamine (EQ-ZL-NSPLVY/DM -ACETAM-DOXYLAM ORAL) [id number]-JA-[id number]-APAP& [id number]-AP AP TABLET THERAPY PACK : Take by mouth. - Oral Active gabapentin (NEURONTIN) 100 mg capsule Take 2 Capsules by mouth daily. 4 Active insulin glargine (Lantus Solostar U-100 Insulin) 100 unit/mL (3 mL) injection pen 10 Units at bedtime. 4 Active pen needle, diabetic 32 gauge x 32 needle Use to inject insulin once daily 3 Active lactulose (CHRONULAC) solution Take 15-30 mL by mouth daily (with breakfast). 3 Active spironolactone (ALDACTONE) 50 mg tablet Take 1 Tablet by mouth daily. 2 Active cyanocobalamin (VITAMIN B-12) 1,000 mcg tablet TAKE 1 TABLET BY MOUTH EVERY DAY 2 Active calcium carbonate-vitami n D3 600 mg-5 mcg (200 unit) per tablet Take 1 Tab by mouth 2 times daily. 8 Active mv-min/iron/foli c/calcium/vitK (WOMEN'S MULTIVITAMIN ORAL) Take 1 Tab by mouth daily. 8 Active amoxicillin (AMOXIL) 500 mg capsule Take 4 capsules (2,000 mg total) by mouth 1 (one) time. 8 Active estradioL (ESTRACE) 0.01 % (0.1 mg/gram) vaginal cream .5 gm appy digitally to vagina three times weekly 0 Active fluticasone propionate (FLONASE) 50 mcg/actuation nasal spray Administer into affected nostril(s). Active folic acid (FOLVITE) 1 mg tablet Take 1 tablet (1,000 mcg total) by mouth 1 (one) time each day. 4 025 Active insulin detemir (LEVEMIR) 100 unit/mL injection Inject 14 Units under the skin at bedtime. Active losartan (COZAAR) 25 mg tablet Take 1 tablet (25 mg total) by mouth 1 (one) time each day. 8 Active traMADoL (ULTRAM) 50 mg tablet Take 1 tablet (50 mg total) by mouth every 12 (twelve) hours if needed for severe pain. for pain Max Daily Amount: 100 mg 56 tablet 5 Active traMADoL (ULTRAM) 50 mg tablet Take 1 tablet (50 mg total) by mouth every 12 (twelve) hours if needed for severe pain. for pain Max Daily Amount: 100 mg 56 tablet 4 025 Discontin ued(Reord er) Active Problems Problem Noted Date Diagnosed Date Dyspnea on exertion 07/14/2024 Low back pain 07/14/2024 Osteoarthritis 07/14/2024 Unsteady gait when walking 07/14/2024 Aortic valve stenosis 07/14/2024 Arteriosclerosis of coronary artery 07/14/2024 Spinal stenosis of lumbar region 07/14/2024 Obesity with body mass index 30 or greater 07/14 Thoracic compression fracture 10/27/2023 Overview (06/02/2024): Last Assessment & Plan: Patient follows up for her back pain, states she does feel that physical therapy has helped her, initially she did not think it was helping, but starting last weekend she has felt much better. She states she is now able to do some work around the house, feels more confident moving around and ambulating. They told her at physical therapy they are getting give her resistance bands to do her exercises at home. She goes to cardiac rehab twice a week and PT for her low back/core 2 hours a week. She still has to take 2 tramadol a day and the total of 3000 mg Tylenol a day. She is on gabapentin for the neuropathy in her feet. She notes her back pain is worse with standing, she tends to sit once her back pain starts to hit a 5/10 level. She does find herself leaning forward frequently, at home hold onto furniture when walking around, otherwise uses a walker when she is going out. Her A1c 5 months ago was 7.0. Ms. White is at a point where she would be willing to try going for an MRI at the open [facility] in [place]. I feel like she is describing more lumbar spondylosis and stenosis type symptoms, she is not experiencing pain up in the T11 area where she had previous compression fracture noted on her CT abdomen pelvis April 2023. I was just going to order a lumbar MRI, will check with MRI if the sagittal will catch the T11 fracture on ST[facility] imaging. We can follow-up in the office after her MRI is completed. She is not sure if she needs another PT order, I will check with AVERY Guajardo. Hiatal hernia 08/18/2023 Gastroesophageal reflux disease without esophagi tis 08/18/2023 Stage 3b chronic kidney disease 06/25/2023 Palpitations 06/25/2023 CKD (chronic kidney disease) 06/25/2023 Dilated cardiomyopathy 12/01/2022 Overview (06/02/2024): Last Assessment & Plan: The patient appears euvolemic on exam with most recent echocardiogram completed 05/27/2023 showing an ejection fraction of 50 to 60%. Patient remains on metoprolol and spironolactone and appears to be tolerating these well. As per goal-directed medical therapies the patient should also be on an ACEI, specially given that she has diabetes; I have discussed this with her today and she will be seeing her microbiology professor in the near future and she will discuss this with him then. She has a history of chronic kidney disease stage IIIb, so I will defer to her microbiology professor to determine whether this is appropriate to start as it does appear her blood pressure will tolerate a small dose. We will make no other changes today. I've asked the patient to call if they develop worsening symptoms of heart failure such as increased shortness of breath, new or worsening cough, increased swelling in the legs or ankles, or weight gain of more than 2 pounds in one day or 4 pounds in one week. Cardiac murmur 04/15/2022 Dyspnea on exertion 04/15/2022 Hypertension 04/15/2022 Hypertensive heart and renal disease with (congestive) heart failure 04/15/2022 Osteoarthritis 04/15/2022 Acute nontraumatic kidney injury 04/15/2022 Stage 1 chronic kidney disease 04/15/2022 Coronary arteriosclerosis 04/15/2022 Gastroesophageal reflux disease 04/15/2022 Diabetes mellitus 04/15/2022 History of aortic valve replacement 12/25/2020 Overview (07/14/2024): Last Assessment & Plan: Functioning normally on exam and via echo. Primary osteoarthritis of both knees 07/30/2020 Bilateral carpal tunnel syndrome 08/14/2018 Atrial fibrillation 03/22/2018 Overview (06/02/2024): Last Assessment & Plan: The patient has a history of postoperative atrial fibrillation after her CABG in 2018. A 30-day R OCT was attempted postoperatively but she was only able to wear it for approximately 5 days. No atrial fibrillation was discovered during that timeframe and as such she is no longer on anticoagulation. She reports today that she has had only 1 episode of palpitations, which she reports felt like her heart was beating really fast and she could actually see it when looking at her chest. Once she was up and moving she states the symptoms resolve, and they were not accompanied by any other symptoms such as lightheadedness or dizziness. She has not had this occur since. I have concerned that she may be experiencing paroxysmal atrial fibrillation, which we discussed and she is willing to repeat a 30-day R OCT for further evaluation. She does not think that she is a snorer, though she does report that she does not sleep well at night wakes up frequently for unknown reasons; she will check with her daughter who she lives with to see if she has noted snoring at any point at which time if she has we will send the patient for sleep study for further evaluation of SOPHIA. If atrial fibrillation is noted on the ROCT, we will readdress the need for anticoagulation at that time. The patient verbalizes understanding of the potential increased risk for cardioembolic stroke related to atrial fibrillation if present and states understanding of when to seek emergent medical attention related to possible CVA. Coronary artery disease due to lipid rich plaque 12/28/2017 Overview (06/02/2024): Last Assessment & Plan: The patient offers no symptoms concerning for ischemia today, though she does remain relatively inactive. She does attend cardiac rehab facility where she uses [employer], bicycle, or lifts weights without any exertional symptoms. She does offer some atypical chest pain which upon further exam, she is noted to have a small firm nonmobile mass at the costosternal junction of approximately the left third rib; pain is reproducible with palpation and therefore does not align with cardiac chest pain. I have requested that she be seen by her PCP for further evaluation of this. At this time we will continue with goal-directed medical therapies including daily 81 mg ASA, beta-roxanna, and statin. Her last lipid panel was completed on 10/30/2022 with an LDL of 63, which is at goal; continue rosuvastatin 40 mg once daily. I have reviewed with the patient the importance of a heart healthy lifestyle which includes eating a low-fat low-salt diet, getting regular exercise, maintaining a healthy weight, not smoking, and following up with routine medical care. Patient advised to seek emergency medical attention by calling 911 if they were to develop severe dyspnea, chest pain that did not resolve with rest, or if they were to faint. Aortic stenosis, moderate 12/28/2017 Overview (06/02/2024): Aortic valve replacement, 25 mm tissue valve, CABG ? 2 , 02/08/2018. Last Assessment & Plan: The patient is doing well status post bioprosthetic aortic valve placement in 2018; most recent echocardiogram completed 05/27/2023 showed prior prosthetic aortic valve was functioning normally. Offers no new complaints such as shortness of breath or lightheadedness or dizziness. We will continue to follow. Moderate aortic valve stenosis 12/28/2017 Overview (07/14/2024): Aortic valve replacement, 25 mm tissue valve, CABG ? 2 , 02/08/2018. Other chest pain 08/26/2017 Overview (06/02/2024): Normal Regadenoson nuclear stress test without evidence of ischemia. Left ventricular systolic function normal, with ejection fraction of 51%. 08/26/2017 Last Assessment & Plan: I spoke to Viri at Dr Ramirez's office to review findings of tender mass noted just to the left of the patient's prior sternum, requesting that they follow-up with her for further evaluation as indicated. At the states she will pass a message to the doctor for his review. Chest pain 08/26/2017 Overview (07/14/2024): Normal Regadenoson nuclear stress test without evidence of ischemia. Left ventricular systolic function normal, with ejection fraction of 51%. 08/26/2017 Cholelithiasis 04/23/2017 Overview (06/02/2024): Ultrasound 04/23/2017 Biliary calculus 04/23/2017 Overview (07/14/2024): Ultrasound 04/23/2017 Osteoporosis 04/08/2017 Overview (06/02/2024): T score -3.8, left hip, 03/29/2013. Diabetes mellitus type 2 with neurological manif estations 03/31/2016 Disorder of nervous system due to type 2 diabete s mellitus 03/31/2016 Onychomycosis 09/10/2015 Obesity (BMI 30.0-34.9) 02/14/2014 Type 1 diabetes mellitus 02/14/2014 Overview (06/02/2024): Podiatry note 06/13/2008 Dr. Sparks. Type II or unspecified type diabetes mellitus with ophthalmic manifestations, uncontrolled(250.52) 02/14/2014 Overview (06/02/2024): Cataract OU noted on outside eye exam 06/02/12 Dr. Russo. Morbid obesity 02/14/2014 Overview (07/14/2024): BMI 43.76 on 01/30/14. Microalbuminuria 08/16/2012 Lumbar spinal stenosis 05/31/2008 Hyperlipidemia 11/18/2005 Overview (06/02/2024): Last Assessment & Plan: Last lipid panel 11/12 total cholesterol 140, HDL 41, LDL 57, triglyceride 210. She has been adjusting her diet. Continue statin. Goal LDL is less than 70 Heartburn 11/18/2005 Overview (06/02/2024): Last Assessment & Plan: The patient does report ongoing heartburn symptoms, however they are only at night when she is laying flat for which she uses 2 pillows to elevate the head of her bed and this helps to control her symptoms. This does not appear to be cardiac in nature, and no further intervention is needed. Essential hypertension, benign 11/18/2005 Overview (06/02/2024): Last Assessment & Plan: The patient's blood pressure remains well controlled on current medical therapies; we will make no changes today. Type II diabetes mellitus with renal manifestati ons 11/18/2005 Overview (06/02/2024): Type II or unspecified type diabetes mellitus with peripheral circulatory disorders, uncontrolled(250.72) Edema 11/18/2005 Benign essential hypertension 11/18/2005 Overview (07/14/2024): Last Assessment & Plan: Controlled, continue current regimen. Hyperlipidemia 11/18/2005 Overview (07/14/2024): Last Assessment & Plan: Last lipid panel 11/12 total cholesterol 140, HDL 41, LDL 57, triglyceride 210. She has been adjusting her diet. Continue statin. Goal LDL is less than 70 Encounters Date Type Department Care Team Description 09/08/2024 11:00 AM EST Office Visit Adult [address] [phone] Renny Ramirez MD Type 2 diabetes mellitus with stage 4 chronic kidney disease, with long-term current use of insulin (CMS/[facility]) (Primary Dx); Pure hypercholesterolemia; Encounter for long-term (current) use of medications; Stage 4 chronic kidney disease (CMS/HCC); Microalbuminuria; Spinal stenosis of lumbar region, unspecified whether neurogenic claudication present; Osteoarthritis of knee, unspecified laterality, unspecified osteoarthritis type; Essential hypertension, benign 07/13/2024 10:45 AM EST Office Visit Orthopedic Surgery - [address] [phone] Rogers Walter DPM Primary osteoarthritis of both feet (Primary Dx); Diabetic mononeuropathy simplex (CMS/[facility]); Type II diabetes mellitus with peripheral circulatory disorder (CMS/[facility]); Metatarsalgia of both feet; Bursitis of both feet from Last 3 Months Immunizations Name Administration Dates Next Due H1N1 Inj Preservative Free 09/06/2009 Influenza trivalent, 0.5mL ( Fluzone High-dose) 65yo and older 07/10/2022,06/12/2021,06/15/2020,06/16,05/16/2018,05/31/2017,05/31/2016 ,05/06/2015 Influenza trivalent, with pr eservative (Fluzone; Afluria) 6mo and older 06/12/2014,06/20/2013,05/11/2012,07/01,08/05/2010,05/22/2009,08/02/2008 ,06/01/2007,08/05/2006 Pfizer SARS-CoV-2 COVID-19, mRNA, LNP-S, preservative free 07/31/2021 Pneumococcal conjugate 13 va lent (Prevnar 13, PCV13) 2mo and older 04/08/2017 Pneumococcal polysaccharide 23 valent (Pneumovax 23) 2yo and older 05/20/2019,01/11/2007 Td Tetanus diptheria (Tdvax) 7yo and older 05/03/2007 Surgical History Surgery Date Site/Laterality Comments SECTION PROCEDURE: MS DELIVERY ONLY ROTATOR CUFF REPAIR 08/24/2002 PROCEDURE: HISTORICAL ROTATOR CUFF REPAIR; COMMENT: right CATARACT EXTRACTION PROCEDURE: HISTORICAL CATARACT REMOVAL AORTIC VALVE REPLACEMENT PROCEDURE: HISTORICAL AORTIC VALVE REPL Medical History Medical History Date Comments Other and unspecified hyperlipidemia 11/18/2005 DX:Other and unspecified hyperlipidemia Obesity, unspecified 11/18/2005 DX:Obesity, unspecified Essential hypertension, benign D X:Essential hypertension, benign Lumbar spinal stenosis 05/31/2008 DX:Lumbar spinal stenosis Type II or unspecified type diabetes mellitus without mention of complication, not stated as uncontrolled 11/18/2005 DX:Type II or unspecified ty pe diabetes mellitus without mention of complication, not stated as uncontrolled Aortic stenosis, moderate 12/28/2017 DX:Aor tic stenosis, moderate; COMMENT: Aortic valve replacement, 25 mm tissue valve, CABG ? 2 , 02/08/2018. Coronary artery disease due to lipid rich plaque 12/28/2017 DX:Coronary artery disease d ue to lipid rich plaque Dilated cardiomyopathy ([facility]) 12/01/2022 DX:Dilated cardiomyopathy (HCC) Atrial fibrillation ([facility]/HCC) 03/22/2018 DX :Atrial fibrillation (HCC) Stage 3b chronic kidney dise ase ([facility]/HCC) 06/25/2023 DX:Stage 3b chronic kidney d isease ([facility]) Bilateral carpal tunnel syndrome 08/14/2018 DX:Bilateral carpal tunnel syndrome Osteoporosis 04/08/2017 DX:Osteoporosis; COMMENT: T score -3.8, left hip, 03/29/2013. S/P aortic valve replacement with bioprosthetic valve 12/25/2020 DX:S/P aortic valve replacem ent with bioprosthetic valve Family History Medical History Relation Name Comments Diabetes Brother x 1 Heart attack Father Heart attack Mother Breast cancer Neg Hx Relation Name Status Comments Brother x 1 Alive Father Mother Social History Tobacco Use Types Packs/Day Years [...] on file Sexual Orientation Not on file Obstetrics History Last Filed Vital Signs Vital Sign Reading [...] Mass Index 32.69 09/08/2024 11:15 AM EST Plan of Treatment Upcoming Encounters Date Type Department Care Team (Late st Contact Info) Description 10/04/2024 10:50 AM EST Office Visit [facility] [address] [phone] Braydon Lujan MD [address] [phone] 10/12/2024 10:45 AM EST Office Visit Orthopedic Surgery - [place] [address] [phone] Rogers Walter DPGerry [address] [address] 10/27/2024 2:40 PM EST Office Visit Gastroenterology - [place] [address] [phone] Arlene Beard PA 175 [facility] 200 [place] [address] 03/01/2025 1:00 PM EDT Appointment Radiology Department - [address] [phone] 03/17/2025 1:00 PM EDT Office Visit [facility] - [address] [phone] Renny Ramirez MD [address] [place] [phone] Health Maintenance Due Date Last Done Comments Diabetes: Annual Foot Exam 01[birth year]13/1950 Diabetes: Annual Retina Eye Exam 01[birth year]13/1950 Zoster Vaccines (1 of 2) 01/13/1992 DTaP,Tdap,and Td Vaccines (2 - Td or Tdap) 05/31/2007 05/03/2007 Social Influencers of Health Screening 08/02/2022 Diabetes: Annual Urine Albumin-Creatinine Ratio (uACR) 04/08/2024 04/08/2023 COVID-19 Vaccine ( season) 2024 05/26/2023, 07/31/2021, 12/07/2020, Additional history exists Influenza Vaccine (#1) 2024 , 07/10/2022, 06/12/2021, Additional history exists Falls Risk Assessment 08/18/2024 08/18/2023 Depression Screening 03/02/2025 03/02/2024 Medicare Annual Wellness Visit 03/02/2025 03/02/2024 Diabetes: Blood Sugar Control Test (HGBA1C) 03/08/2025 09/08/2024, 06/08/2024, 03/02/2024, Additional history exists Diabetes: Annual GFR (Glomerular Filtration Rate) 09/08/2025 09/08/2024, 06/08/2024, 03/02/2024, Additional history exists Hypertension/CHF/CAD Annual BMP Blood Test 09/08/2025 09/08/2024, 06/08/2024, 03/02/2024, Additional history exists Cholesterol Screening (Lipid Panel) 09/08/2029 09/08/2024, 03/02/2024, 03/02/2024 Osteoporosis Screening (Bone Density Screening) 02/11/2031 02/11/2021, 09/22/2017 Pneumococcal Vaccine: 50+ Years Completed 05/20/2019, 04/08/2017, 01/11/2007 RSV Immunization Patients 60+ Years Old Completed 05/26/2023 HIB Vaccines Aged Out No longer eligi ble based on patient's age to complete this topic HPV Vaccines Aged Out No longer eligi ble based on patient's age to complete this topic Hepatitis A Vaccines Aged Out No long er eligible based on patient's age to complete this topic Hepatitis B Vaccines Aged Out No long er eligible based on patient's age to complete this topic IPV Vaccines Aged Out No longer eligi ble based on patient's age to complete this topic MMR Vaccines Aged Out No longer eligi ble based on patient's age to complete this topic Meningococcal ACWY Vaccine Aged Out N o longer eligible based on patient's age to complete this topic Meningococcal B Vacine Aged Out No lo nger eligible based on patient's age to complete this topic RSV Immunization Patients Under 20 months Aged Out No longer eligible based on patient's age to complete this topic Varicella Vaccines Aged Out No longer eligible based on patient's age to complete this topic Procedures Procedure Name Priority Date/Time Associated Diagnosis Comments HEMOGLOBIN A1C Routine 09/08/2024 12:02 PM EST Type 2 diabetes mellitus with stage 4 chronic kidney disease, with long-term current use of insulin ([facility]) LIPID PANEL WITH REFLEX TO DIRECT LDL Routine 09/08/2024 12:02 PM EST Pure hypercholesterolemia COMPREHENSIVE METABOLIC PANEL Routine 09/08/2024 12:02 PM EST Type 2 diabetes mellitus with stage 4 chronic kidney disease, with long-term current use of insulin ([facility]) Encounter for long-term (current) use of medications EXTERNAL CLINICAL LAB 08/11/2024 EXTERNAL CLINICAL LAB 07/26/2024 DEPRESSION SCREENING Routine 03/02/2024 FALLS RISK ASSESSMENT Routine 08/18/2023 URINE ALBUMIN CREATININE RATIO Routine 04/08/2023 DXA BONE DENSITY STUDY 1+ SITS AXIAL SKEL Routine 02/11/2021 2:18 PM EDT Age-related osteoporosis without current pathological fracture from Last 3 Months or Most Recently Relevant to Health Maintenance Results * (ABNORMAL) Lipid panel with reflex to direct LDL (09/08/2024 12:02 PM EST) [facility] Cholesterol 153 0 - 200 mg/dL LAB CHEMISTRY METHOD 09/08/2024 5:20 PM EST [facility] Triglycerides 168(H) 0 - 150 mg/dL LAB CHEMISTRY METHOD 09/08/2024 5:20 PM [facility] HDL 52 >=40 mg/dL LAB CHEMISTRY METHOD 09/08/2024 5:20 PM [facility] LDL Calculated 67 0 - 100 mg/dL LAB CHEMISTRY METHOD 09/08/2024 5:20 PM [facility] VLDL Cholesterol Paul 33.6 mg/dL LAB CHEMISTRY METHOD 09/08/2024 5:20 PM [facility] Non HDL Chol. (LDL+VLDL) 101 <145 mg/dL LAB CHEMISTRY METHOD 09/08/2024 5:20 PM [facility] Chol/HDL Ratio 2.9 0.0 - 4.4 LAB CHEMISTRY METHOD 09/08/2024 5:20 PM [facility] Blood Venous blood specimen / Unknown Venipuncture / Unknown 09/08/2024 12:02 PM EST 09/08/2024 12:02 PM EST us Renny Ramirez MD LAB BLOOD ORDERABLES Final Resu lt [facility] [address] [place] [address], * Hemoglobin A1c (09/08/2024 12:02 PM EST) Hemoglobin A1C 5.7 <6.5 % LAB CHEMISTRY METHOD 09/08/2024 8:51 PM [facility] Mean Bld Glu Estim. 117 mg/dL LAB CHEMISTRY METHOD 09/08/2024 8:51 PM [facility] Blood Venous blood specimen / Unknown Venipuncture / Unknown 09/08/2024 12:02 PM EST 09/08/2024 12:02 PM EST us Renny Ramirez MD LAB BLOOD ORDERABLES Final Resu lt [facility] [address] [place] [address], * (ABNORMAL) Comprehensive metabolic panel (09/08/2024 12:02 PM EST) Sodium 141 133 - 145 mmol/L LAB CHEMISTRY METHOD 09/08/2024 5:20 PM EST [facility] Potassium 4.7 3.5 - 5.5 mmol/L LAB CHEMISTRY METHOD 09/08/2024 5:20 PM [facility] Chloride 111(H) 96 - 110 mmol/L LAB CHEMISTRY METHOD 09/08/2024 5:20 PM [facility] CO2 25 21 - 32 mmol/L LAB CHEMISTRY METHOD 09/08/2024 5:20 PM [facility] Anion Gap 5 3 - 11 LAB CHEMISTRY METHOD 09/08/2024 5:20 PM [facility] Glucose 114(H) 70 - 100 mg/dL LAB CHEMISTRY METHOD 09/08/2024 5:20 PM [facility] BUN 18 5 - 25 mg/dL LAB CHEMISTRY METHOD 09/08/2024 5:20 PM [facility] Creatinine 1.67(H) 0.50 - 1.10 mg/dL LAB CHEMISTRY METHOD 09/08/2024 5:20 PM [facility] eGFR 30(L) >=60 mL/min/1. 73m2 LAB CHEMISTRY METHOD 09/08/2024 5:20 PM [facility] Comment:Calculation based on the??Chronic Kidney Disease Epidemiology Collaboration (CKD-EPI) equation refit??without adjustment for race. BUN/Creatinine Ratio 10.8 LAB CHEMISTRY METHOD 09/08/2024 5:20 PM [facility] Calcium 9.0 8.5 - 10.5 mg/dL LAB CHEMISTRY METHOD 09/08/2024 5:20 PM [facility] AST (SGOT) 19 10 - 42 unit/L LAB CHEMISTRY METHOD 09/08/2024 5:20 PM EST [facility] ALT (SGPT) 13 10 - 60 unit/L LAB CHEMISTRY METHOD 09/08/2024 5:20 PM [facility] Alkaline Phosphatase 87 42 - 121 unit/L LAB CHEMISTRY METHOD 09/08/2024 5:20 PM [facility] Total Protein 5.9(L) 6.0 - 8.0 g/dL LAB CHEMISTRY METHOD 09/08/2024 5:20 PM [facility] Albumin 2.9(L) 3.2 - 5.0 g/dL LAB CHEMISTRY METHOD 09/08/2024 5:20 PM [facility] Total Bilirubin 0.3 0.0 - 1.4 mg/dL LAB CHEMISTRY METHOD 09/08/2024 5:20 PM [facility] Blood Venous blood specimen / Unknown Venipuncture / Unknown 09/08/2024 12:02 PM EST 09/08/2024 12:02 PM EST Renny Ramirez MD LAB BLOOD ORDERABLES Final Resu lt [facility] [address] [place] [address], * External clinical lab (08/11/2024) Only the most recent of2 resultswithin the time period is included. Provider Onbase LAB BLOOD ORDERABLES Final Re sult * Depression Screening (03/02/2024) Depression Screening Abstracted Historical Provider HEALTH MAINTENANCE Final Result * Falls Risk Assessment (08/18/2023) Falls Risk Assessment Abstracted Historical Provider HEALTH MAINTENANCE Final Result * Urine Albumin Creatinine Ratio (04/08/2023) Urine Albumin Creatinine Ratio Abstracted us Historical Provider HEALTH MAINTENANCE Final Result * DXA BONE DENSITY STUDY 1+ SITS AXIAL SKEL (02/11/2021 2:18 PM EDT) Anatomical Region Laterality Modality Bone Densitometr y 11/15/2020 10:1 9 AM EDT Narrative 02/11/2021 4:05 PM EDT BONE DENSITY ? Lumbar Spine T-score is +0.2 ?? (SD relative to 20-29 y/o adult) Z-score is +2.7 ??(SD relative to age matched peers) This is normal by criteria defined by the WHO. Left Hip T-score is -2.1 Z-score is +0.1 This is consistent with osteopenia by criteria defined by the WHO. Impression: Based on the World Health Organization criteria, Jessica White should be classified as having osteopenia. This patient has a 14% risk of major osteoporotic fracture and a 3.9% risk of hip fracture over the next 10 years. (World Health Organization Fracture Risk Assessment) The [facility] Department of Internal Medicine recommends using National Osteoporosis Foundation (NOF) guidelines in treatment decisions related to osteoporosis. NOF guidelines suggest considering treatment for postmenopausal women and men aged 50 or older presenting with the following: History of hip or vertebral fracture. T-score less than or equal to -2.5 (DXA) at the femoral neck, total hip, or spine, after appropriate evaluation to exclude secondary causes. Low bone mass (T-score between -1.0 and -2.5 at the femoral neck or spine) AND a 10-year probability of a hip fracture greater than or equal to 3% OR a 10-year probability of a major osteoporosis-related fracture greater than or equal to 20% based on the [place]-adapted WHO algorithm Please note that all treatment decisions require clinical judgment and consideration of individual patient factors, including patient preferences, co-morbidities, previous drug use, risk factors not captured in the FRAX model (e.g., frailty, falls, vitamin D deficiency, increased bone turnover, interval significant decline in bone density) and possible under- or over-estimation of fracture risk by FRAX. Procedure Note Farhat Ralph MD - 08/12/2022 BONE DENSITY Lumbar Spine T-score is +0.2 (SD relative to 20-29 y/o adult) Z-score is +2.7 (SD relative to age matched peers) This is normal by criteria defined by the WHO. Left Hip T-score is -2.1 Z-score is +0.1 This is consistent with osteopenia by criteria defined by the WHO. Impression: Based on the World Health Organization criteria, Jessica White should beclassified as having osteopenia. This patient has a 14% risk of majorosteoporotic fracture and a 3.9% risk of hip fracture over the next 10years. (World Health Organization Fracture Risk Assessment) The [facility] Department of Internal Medicine recommendsusing National Osteoporosis Foundation (NOF) guidelines in treatmentdecisions related to osteoporosis. NOF guidelines suggest consideringtreatment for postmenopausal women and men aged 50 or older presentingwith the following: History of hip or vertebral fracture. T-score less than or equal to -2.5 (DXA) at the femoral neck, total hip,or spine, after appropriate evaluation to exclude secondary causes. Low bone mass (T-score between -1.0 and -2.5 at the femoral neck or spine)AND a 10-year probability of a hip fracture greater than or equal to 3% ORa 10-year probability of a major osteoporosis-related fracture greaterthan or equal to 20% based on the [place]-adapted WHO algorithm Please note that all treatment decisions require clinical judgment andconsideration of individual patient factors, including patientpreferences, co-morbidities, previous drug use, risk factors not capturedin the FRAX model (e.g., frailty, falls, vitamin D deficiency, increasedbone turnover, interval significant decline in bone density) and possibleunder- or over-estimation of fracture risk by FRAX. us Renny Ramirez MD [facility] DXA PROCEDURES Final Result from Last 3 Months or Most Recently Relevant to Health Maintenance Insurance MEDICARE [facility] Care Teams Operations Dispatcher Relationship Specialty Start Date End Date Renny Ramirez MD [address] [place] [id number] PCP - General Internal Medicine 02/14/20
--- OUTSIDE RECORDS SUMMARY | 2024-10-03 11:42 | XMS_ITS | Clinical Summary ---
Author Organization [facility] Address [address] [facility] [address] [place] [address] Phone Care Team Providers Care Track Laying Supervisor Name Role Phone Renny Ramirez MD Primary Care Provider [phone] Allergies Active Allergy Reactions Criticality Noted Date Comments Atorvastatin Other (see comments) 11/18/2005 Other reaction(s): unknown lab results liver problems Levofloxacin Other (see comments) 11/18/2005 vomiting Tetanus Toxoids Other (see comments) 04/15/2022 Tetanus-Diphtheria Toxoids Td 09/06/2009 Other reaction(s): OTHER Swelling injection site/years ago Medications acetaminophen (TYLENOL) 500 MG tablet Take 1,000 mg by mouth 0 Active ascorbic acid (VITAMIN C) 500 MG tablet Take 1 tablet by mouth 1 (one) time each day 8 Active amoxicillin (AMOXIL) 500 MG capsule Dental prophylaxis take 4 tabs one hour prior to dental procedure 8 Active Aspirin Low Dose 81 MG chewable tablet CHEW 1 TABLET BY MOUTH EVERY DAY 2 Active calcium carbonate-vitam in D 600-200 MG-UNIT per tablet Take 1 tablet by mouth 8 Active cetirizine (ZyrTEC) 10 MG tablet Take 1 tablet by mouth 1 (one) time each day 2 Active cyanocobalamin (VITAMIN B-12) 1000 MCG tablet Take 1 tablet by mouth 1 (one) time each day 8 Active Docusate Sodium (DSS) 100 MG capsule Take 1 capsule by mouth 2 (two) times a day Active estradiol (ESTRACE) 0.1 MG/GM vaginal cream .5 gm appy digitally to vagina three times weekly 0 Active furosemide (LASIX) 20 MG tablet Take 20 mg by mouth 5 times a week. 2 Active gabapentin (NEURONTIN) 100 MG capsule Take 2 capsules by mouth 1 (one) time each day 8 Active Garlic 100 MG tablet Take 1 tablet by mouth 1 (one) time each day 2 Active hydrocortisone 2.5 % cream To affected areas twice daily as needed 7 Active Levemir FlexTouch 100 UNIT/ML injection 2 Active metoprolol tartrate (LOPRESSOR) 50 MG tablet Take 1 tablet by mouth 8 Active Multiple Vitamins-[place] ls (Multivitamin Women) tablet Take 1 tablet by mouth 1 (one) time each day 8 Active [place]-3 Fatty Acids 1360 MG capsule Take by mouth 1 (one) time each day Active omeprazole (PriLOSEC) [address] capsule Take by mouth 1 (one) time each day 2 Active rosuvastatin (CRESTOR) 40 MG tablet Take 40 mg by mouth 1 (one) time each day 2 Active solifenacin (VESICARE) 5 MG tablet Take 1 tablet by mouth 1 (one) time each day 0 Active alpha tocopherol (VITAMIN E) 200 units capsule Take 200 Units by mouth Active metoclopramide (REGLAN) 10 MG tablet Take 10 mg by mouth 2 Active traMADol (ULTRAM) 50 MG tablet Take 50 mg by mouth every 12 (twelve) hours if needed 3 Active lactulose (CHRONULAC) 10 GM/15ML solution Take 15 mL (10 g total) by mouth 1 (one) time each day 1350 mL 3 3 Active spironolactone (ALDACTONE) 50 MG tablet TAKE 1 TABLET BY MOUTH 1 TIME EACH DAY. 90 tablet 3 3 Active metFORMIN (Glumetza) 500 MG 24 hr tablet Take 3 tablets (1,500 mg total) by mouth 1 (one) time each day with dinner Do not crush, chew, or split. 270 tablet 3 3 Active Active Problems Problem Noted Date Diagnosed Date Acute nontraumatic kidney injury 04/15/2022 Body mass index 30+ - obesity 04/15/2022 Cardiac murmur 04/15/2022 Chronic kidney disease stage 1 04/15/2022 Coronary arteriosclerosis 04/15/2022 Dyspnea on exertion 04/15/2022 Gastroesophageal reflux disease 04/15/2022 History of cataract extraction 04/15/2022 Hypertension 04/15/2022 Hypertensive heart and renal disease with (congestive) heart failure 04/15/2022 Osteoarthritis 04/15/2022 Diabetes mellitus 04/15/2022 History of aortic valve replacement 12/25/2020 Overview (04/15/2022): Last Assessment & Plan: Functioning normally on exam and via echo. 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 2 , 02/08/2018. Chest pain 08/26/2017 Overview (04/15/2022): Normal Regadenoson nuclear stress test without evidence of ischemia. Left ventricular systolic function normal, with ejection fraction of 51%. 08/26/2017 Biliary calculus 04/23/2017 Overview (04/15/2022): Ultrasound 04/23/2017 Osteoporosis 04/08/2017 Overview (04/15/2022): T score -3.8, left hip, 03/29/2013. Disorder of nervous system due to type 2 diabete s mellitus 03/31/2016 Onychomycosis 09/10/2015 Morbid obesity 02/14/2014 Overview (04/15/2022): BMI 43.76 on 01/30/14. Benign essential hypertension 11/18/2005 Overview (04/15/2022): Last Assessment & Plan: Controlled, continue current regimen. Edema 11/18/2005 Hyperlipidemia 11/18/2005 Overview (04/15/2022): Last Assessment & Plan: Last lipid panel 11/12 total cholesterol 140, HDL 41, LDL 57, triglyceride 210. She has been adjusting her diet. Continue statin. Goal LDL is less than 70 Family History Medical History Relation Comments Kidney disease Child 1 daughter-transpl ant Diabetes Child 2 daughter (type 1 ) Heart disease Father heart attack Heart disease Mother heart attack Hypertension Sibling brother Relation Status Comments Child 1 Child 2 Father Mother Sibling Social History Tobacco Use Types Packs/Day Years Used Date Smoking Tobacco: Never Smokeless Tobacco: Never Tobacco Cessation:Counseling Given: Not Answered Alcohol Use Standard Drinks/Week Comments No 0 (1 standard drink = 0.6 oz pur e alcohol) Comments Unknown Sex and Gender Information Value Date Recorded Sex Assigned at Not on file Legal Sex Female 4:52 PM EST Gender Identity Not on file Sexual Orientation Not on file Last Filed Vital Signs Vital Sign Reading Time Taken Comments Blood Pressure 134/70 07/08/2023 10:37 AM EST Pulse 56 07/08/2023 10:37 AM EST Temperature - - Respiratory Rate - - Oxygen Saturation 98% 07/08/2023 10:37 AM EST Inhaled Oxygen Concentration - - Weight 94.8 kg (209 lb) 07/08/2023 10:37 AM EST Height 165.1 cm (5' 5 ) 04/15/2022 3:46 PM EDT Body Mass Index 34.78 04/15/2022 3:46 PM EDT Plan of Treatment Health Maintenance Due Date Last Done Comments Diabetes: Ophthalmology Exam 02/11/2022 Diabetes: Pedal Pulse Checked 02/11/2022 Diabetes: Sensory Foot Exam 02/11/2022 Diabetes: Visual Foot Exam 02/11/2022 Diabetes: Hemoglobin A1C 05/13/2023 023, 10/15/2022, 02/26/2022, Additional history exists Influenza Vaccine (#1) 2024 2, 06/12/2021, 06/15/2020, Additional history exists Pneumococcal Vaccine: 65+ Years Completed 05/20/2019, 04/08/2017, 01/11/2007 Hepatitis B Vaccine Aged Out No longe r eligible based on patient's age to complete this topic Procedures Procedure Name Priority Date/Time Associated Diagnosis Comments HEMOGLOBIN A1C Routine 10/15/2022 11:30 AM EST Hypertension Type 2 diabetes mellitus with diabetic chronic kidney disease (HCC) Chronic kidney disease, stage 2 (mild) from Last 3 Months or Most Recently Relevant to Health Maintenance Results * (ABNORMAL) Hemoglobin A1c (10/15/2022 11:30 AM EST) Hemoglobin A1C 6.3(H) (4.0-5.6) % [facility] Comment: MONITORING: In known diabetic patients, hemoglobin A1c targets should be discussed with health care provider. DIAGNOSTIC USE: ??The [place] Diabetes Association (ADA) and the World Health Organization (WHO) recommend the use of HbA1c to diagnose diabetes using a threshold of 6.5%. Patients who have an HbA1c between 5.7% and 6.4% are considered at increased risk for developing diabetes in the future. CAUTION: Falsely low HbA1c results may be observed in patients with hemolytic anemia, homozygous forms of abnormal hemoglobin (e.g. SS, CC, SC), , recent blood loss or hemoglobin F greater than 7%. Fructosamine may be used as an alternate test in these cases. REFERENCE: ADA: Standards of Medical Care in Diabetes 2020, The Journal of Clinical and Applied Research and Education Volume 43, Supplement 1 Testing performed or reported by [facility], a Service of [facility], [address] [place] [id number] Mike Purdy MD, Independent Consultant [facility]# [id number] Blood (Blood, Venous) 10/15/2022 11:30 AM EST 10/15/2022 11:32 AM EST Indra Rivera MD LAB BLOOD ORDERABLES Final Re sult [facility] from Last 3 Months or Most Recently Relevant to Health Maintenance Insurance MEDICARE [facility] MEDICARE [facility] Care Teams Track Laying Supervisor Relationship Specialty Start Date End Date Renny Ramirez MD PCP - General Internal Medicine 04/15/22
[2024-10-03 12:05] LABS: Anion Gap 15 (12-20); Blood Urea Nitrogen 28 mg/dL (9-16); Carbon Dioxide 21 mmol/L (22-29); Chloride 110 mmol/L (96-108); Estimated Glomerular Filt Rate 25; Potassium 4.7 mmol/L (3.3-5.1); Sodium 141 mmol/L (135-145)
== END 2024-10-03 10:40 | disposition home or self-care (01) ==
LOC: HO.LAB 10:39
PROVIDERS: PCP Internal Medicine; Visit Provider Internal Medicine Nephrology
DX: I12.9 Hypertensive chronic kidney disease with stage 1 through stage 4 chronic kidney disease, or unspecified chronic kidney disease (principal); N17.9 Acute kidney failure, unspecified; N18.31 Chronic kidney disease, stage 3a
CPT/HCPCS: 36415; 80051; 82565; 84520

== ENCOUNTER 2024-10-14 13:31 | Outpatient (AMB) | payer MEDICARE, OTHER, SELFPAY ==
--- NOTE | 2024-10-14 13:34 | HO.NEPHOV_ITS ---
Vital Signs 10/14/24 13:49 Height 5 ft 8 in Weight 202 lb 4 oz BMI 30.7 BP 122/54 L Blood Pressure Location Lt brachial Position Sitting Pulse 54 Pulse Source Pulse Oximeter Pulse Oximetry (%) 99 Oxygen Delivery Method Room Air Intake Visit Reasons: 6wk follow-up w/labs Sales Account Director Required: No Accompanied by: Son Allergies adhesive [BANDAGE,ADHESIVE] Allergy (Unknown, Verified 10/14/24 13:49) TOOK OFF THE SKIN empagliflozin [From Synjardy] Allergy (Verified 10/14/24 13:49) Unknown levofloxacin [From LEVAQUIN] Adverse Reaction (Unknown, Verified 10/14/24 13:49) VOMITING atorvastatin [From Lipitor] Adverse Reaction (Verified 10/14/24 13:49) Unknown HPI Comments Details: Jessica was seen in follow up for CKD . She is 84 years of age with H/O CKD as well as CAD needing cardiac surgery. She has long standing DM as well hypertension with CKD. Her serum creatinine last year was 1.6 which has been progressing . She denies chest pain, SOB, PND, orthopnea, edema, orthostatic symptoms, new bone or back pain, regular NSAID intake, renal calculi, new skin rashes, photosensitivity, epistaxis, joint swellings, hematuria or hypoglycemias. She claims to be compliant with her medications. She denies any symptoms of CVA, CHF, symptoms of PAD. She feels improved with medication changes. [facility] Surgical History History of knee surgery H/O repair of rotator cuff H/O aortic valve replacement Family History Mother Heart disease Hypertension Father Heart disease Hypertension Daughter Diabetes Kidney transplanted Social History Alcohol intake: current Comment: Rare Patient Tobacco Use Status: Never used Tobacco Review of Systems Const All systems reviewed & are unremarkable except as noted in HPI and below Physical Exam Vital Signs: Last Vital Signs Pulse 54 10/14/24 13:49 BP 122/54 L 10/14/24 13:49 Pulse Ox 99 10/14/24 13:49 Oxygen Delivery Method Room Air 10/14/24 13:49 BMI result Body Mass Index 30.7 Const General: comfortable and no acute distress Orientation/consciousness: patient oriented x3 HEENT Head: Yes normocephalic Mouth: Normal oral and palatal mucosa present Eyes EOM: EOMs intact bilaterally Neck Neck: Yes supple Resp Auscultation: clear to auscultation bilaterally Cardio Jugular venous distension: no JVD Rate: regular rate GI Palpation (GI): Soft to palpation Auscultation: normal bowel sounds General: Yes no CVA tenderness Back/Spine/Pelvis Back: no CVA tenderness Skin General skin exam: no rashes or lesions noted Neuro General: patient oriented x3 and moves all extremities Extrem General: Yes no pedal edema Results Reviewed Nephrology Results: Sodium 141 mmol/L (135-145) 10/03/24 Potassium 4.7 mmol/L (3.3-5.1) 10/03/24 Chloride 110 mmol/L (96-108) H 10/03/24 Carbon Dioxide 21 mmol/L (22-29) L 10/03/24 BUN 28 mg/dL (9-16) H 10/03/24 Creatinine 1.95 mg/dL (0.5-1.4) H 10/03/24 Assessment & Plan Assessment & Plan (1) CKD stage 3a, GFR 45-59 ml/min: Code(s): N18.31 - Chronic kidney disease, stage 3a Category: Medical (2) Hypertension: Code(s): I10 - Essential (primary) hypertension Category: Medical Qualifiers: Hypertension type: primary hypertension Qualified Code(s): I10 - Essential (primary) hypertension Plan 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 She has good urine output. She recently had DINO , most likely due to tubular injury which has improved . Differential diagnosis has been progression of her renal disease. She is euvolemic. I started her on Jardiance 10 mg daily ( she will D/C metformin when she gets it). She should maintain good hydration and avoids NSAID's. Follow up blood work ordered. Follow up given in one month Orders: Orders Blood Urea Nitrogen 4 Weeks I10 - Essential (primary) hypertension, N18.31 - Chronic kidney disease, stage 3a Creatinine 4 Weeks I10 - Essential (primary) hypertension, N18.31 - Chronic kidney disease, stage 3a Electrolytes 4 Weeks I10 - Essential (primary) hypertension, N18.31 - Chronic kidney disease, stage 3a Medications: New empagliflozin 10 mg PO DAILY 30 tabs 3RF Coding Level of Care Code Est Pt Level 4 (16044) Diagnoses CKD stage 3a, GFR 45-59 ml/min N18.31 Primary hypertension I10 Hypertension type: primary hypertension
[2024-10-14 13:49] VITALS: BP 122/54; PULSE 54; O2SAT 99; BMI 30.7
--- OUTSIDE RECORDS SUMMARY | 2024-10-14 13:54 | XMS_ITS | Clinical Summary ---
Author Organization [facility] Address [address] [place] [address] Care Team Providers Care Epic Director Name Role Phone Renny Ramirez MD Primary Care Provider [phone] Allergies Active Allergy Reactions Criticality Noted Date [...] time each day with breakfast. 4 Active rosuvastatin (CRESTOR) 40 mg tablet Take [...] vit C/E/Zn/coppr/lut ein/zeaxan (PRESERVISION AREDS-2 ORAL) Multiple Vitamins-[place] als (PreserVision AREDS 2) Cap : Take by mouth. - Oral Active cholecalciferol (VITAMIN D-3) 125 mcg (5,000 unit) capsule Take by mouth. A ctive acetaminophen (TYLENOL) 500 mg tablet Take 6 tablets (3,000 mg total) by mouth 1 (one) time each day. Active ascorbic acid (VITAMIN C) 250 mg tablet Take 1 Tablet by mouth daily. Active DM/PE/acetaminop hen/doxylamine (JK-KO-DWQWYJ/DM -ACETAM-DOXYLAM ORAL) [id number]-APAP& [id number]-AP AP TABLET THERAPY PACK : Take by mouth. - Oral Active gabapentin (NEURONTIN) 100 mg capsule Take 2 Capsules by mouth daily. 4 Active insulin glargine (Lantus Solostar U-100 Insulin) 100 unit/mL (3 mL) injection pen 10 Units at bedtime. 4 Active pen needle, diabetic 32 gauge x 5/32 needle Use to inject insulin once daily [...] 1 (one) time each day. 8 Active metoprolol succinate (TOPROL-XL) 50 mg 24 hr tablet Take 1 tablet (50 mg total) by mouth 1 (one) time each day. Do not crush or chew. 90 each 3 5 026 Active traMADoL (ULTRAM) 50 mg tablet Take 1 tablet (50 mg total) by mouth every 12 (twelve) hours if needed for severe pain. for pain Max Daily Amount: 100 mg 56 tablet 5 Active metoprolol tartrate (LOPRESSOR) 50 mg tablet Take 1 Tablet by mouth 2 times daily. 3 025 Discontin ued(Dose adjustmen t) traMADoL (ULTRAM) 50 mg tablet Take 1 tablet (50 mg total) by mouth every 12 (twelve) hours if needed for severe pain. 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 in [place]. I feel like she is describing more [...] today and she will be seeing her manager cosmetic in the near future and she will discuss this with him then. She has a history of chronic kidney disease stage IIIb, so I will defer to her manager cosmetic to determine whether this is appropriate to [...] Encounters Date Type Department Care Team Description 10/04/2024 10:50 AM EST Office Visit [facility] [address] [place] [address] Braydon Puri MD LBBB (left bundle branch block) (Primary Dx); Coronary artery disease due to lipid rich plaque; Prosthetic aortic valve failure; Stage 3b chronic kidney disease (CMS/HCC); Obesity (BMI 30.0-34.9) 09/08/2024 11:00 AM EST Office Visit Adult Medicine [address] [phone] Renny Ramirez MD Type 2 diabetes mellitus with stage 4 chronic kidney disease, with long-term current use of insulin (CMS/HCC) (Primary Dx); Pure hypercholesterolemia; Encounter for long-term (current) use of medications; Stage 4 chronic kidney disease (CMS/HCC); Microalbuminuria; Spinal stenosis of lumbar region, unspecified whether neurogenic claudication present; Osteoarthritis of knee, unspecified laterality, unspecified osteoarthritis type; Essential hypertension, benign from Last 3 Months Immunizations Name Administration [...] History Surgery Date Site/Laterality Comments SECTION PROCEDURE: ND DELIVERY ONLY ROTATOR CUFF REPAIR 08/24/2002 PROCEDURE: [...] ue to lipid rich plaque Dilated cardiomyopathy (CMS/HCC) 12/01/2022 DX:Dilated cardiomyopathy (HCC) Atrial fibrillation (CMS/HCC) 03/22/2018 DX :Atrial fibrillation (HCC) Stage 3b chronic kidney dise ase (CMS/HCC) 06/25/2023 DX:Stage 3b chronic kidney d isease ([facility]) Bilateral carpal tunnel syndrome 08/14/2018 DX:Bilateral carpal [...] Sign Reading Time Taken Comments Blood Pressure 118/60 10/04/2024 10:39 AM EST Pulse 58 10/04/2024 10:39 AM EST Temperature 36.8 ??C (98.2 ??F) 09/08/2024 11:[address] Respiratory Rate 14 09/08/2024 11:15 AM EST Oxygen Saturation 96% 10/04/2024 10:39 AM EST Inhaled Oxygen Concentration - - Weight 96.2 kg (212 lb) 10/04/2024 10:39 AM EST Height 172.7 cm (5' 8 ) 10/04/2024 10:39 AM EST Body Mass Index 32.23 10/04/2024 10:39 AM EST Plan of Treatment Upcoming Encounters Date Type Department Care Team (Late st Contact Info) Description 10/27/2024 2:40 PM EST Office Visit Gastroenterology [facility] [address] [phone] Arlene Beard PA [address] [address] 11/15/2024 10:15 AM EDT Office Visit Orthopedic Surgery [facility] [address] [phone] Rogers Walter, DPM [address] [address] 03/01/2025 1:00 PM EDT Appointment Radiology Department - [address] [phone] 03/17/2025 1:00 PM EDT Office Visit Adult Medicine [address] [phone] Renny Ramirez MD [address] [place] [phone] Health Maintenance Due Date Last Done Comments Diabetes: Annual Foot Exam 01/13/1950 Diabetes: Annual Retina Eye Exam 01/13/1952 Zoster Vaccines (1 of 2) 01/13/1992 DTaP,Tdap,and Td Vaccines (2 - Td or Tdap) 05/03/2017 05/03/2007 Social Influencers of Health Screening 08/02/2022 [...] Procedure Name Priority Date/Time Associated Diagnosis Comments ECG 12-LEAD Routine 10/04/2024 11:06 AM EST LBBB (left bundle branch block) Coronary artery disease due to lipid rich plaque HEMOGLOBIN A1C Routine 09/08/2024 12:02 PM EST Type 2 diabetes mellitus with stage 4 chronic kidney disease, with long-term current use of insulin ([facility]) LIPID PANEL WITH REFLEX TO DIRECT LDL Routine 09/08/2024 12:02 PM EST Pure hypercholesterolemia COMPREHENSIVE METABOLIC PANEL Routine 09/08/2024 12:02 PM EST Type 2 diabetes mellitus with stage 4 chronic kidney disease, with long-term current use of insulin ([facility]) Encounter for long-term (current) use of medications EXTERNAL CLINICAL LAB 08/11/2024 EXTERNAL CLINICAL LAB 07/26/2024 HM DEPRESSION SCREENING Routine 03/02/2024 FALLS RISK ASSESSMENT Routine 08/18/2023 URINE ALBUMIN CREATININE RATIO Routine 04/08/2023 DXA BONE DENSITY STUDY 1+ SITS AXIAL SKEL Routine 02/11/2021 2:18 PM EDT Age-related osteoporosis without current pathological fracture from Last 3 Months or Most Recently Relevant to Health Maintenance Results * ECG 12 lead (10/04/2024 11:06 AM EST) Ventricular Rate ECG 49 BPM GEMUSE Atrial Rate 49 BPM GEMUSE P-R Interval 182 ms GEMUSE QRS Duration 122 ms GEMUSE Q-T Interval 488 ms GEMUSE QTc 440 ms GEMUSE P Wave [place] 5 degrees GEMUSE R [place] -26 degrees GEMUSE T [place] 81 degrees GEMUSE ECG Interpretation Sinus bradycardia Left ventricular hypertrophy with QRS widening and repolarization abnormality Abnormal ECG When compared with ECG of 07-DEC-2013 08:06, Vent. rate has decreased BY ??38 BPM QRS duration has increased T wave inversion now evident in Lateral leads Confirmed by Helen PURI, BRAYDON ([id number]) on 10/04/2024 11:37:33 AM GEMUSE 10/04/2024 11:0 6 AM EST 10/04/2024 11:37 AM EST Braydon Puri MD ECG ORDERABLES Final Result GEMUSE * (ABNORMAL) Lipid panel with reflex to direct LDL (09/08/2024 12:02 PM EST) Cholesterol 153 0 - 200 mg/dL LAB CHEMISTRY METHOD 09/08/2024 5:20 PM EST [facility] Triglycerides 168(H) 0 - 150 mg/dL LAB CHEMISTRY METHOD 09/08/2024 5:20 PM EST [facility] HDL 52 >=40 mg/dL LAB CHEMISTRY METHOD 09/08/2024 5:20 PM [facility] LDL Calculated 67 0 - 100 mg/dL LAB CHEMISTRY METHOD 09/08/2024 5:20 PM EST [facility] VLDL Cholesterol Paul 33.6 mg/dL LAB CHEMISTRY METHOD 09/08/2024 5:20 PM EST [facility] Non HDL Chol. (LDL+VLDL) 101 <145 mg/dL LAB CHEMISTRY METHOD 09/08/2024 5:20 PM EST [facility] Chol/HDL Ratio 2.9 0.0 - 4.4 LAB CHEMISTRY METHOD 09/08/2024 5:20 PM EST [facility] Blood Venous blood specimen / Unknown Venipuncture / Unknown 09/08/2024 12:02 PM EST 09/08/2024 12:02 PM EST us Renny Ramirez MD LAB BLOOD ORDERABLES Final Resu lt Performing Organization Address [facility]/ZIP Co de Phone Number [facility] [address] [place] [address], [place] [phone] * Hemoglobin A1c (09/08/2024 12:02 PM EST) Hemoglobin A1C 5.7 <6.5 % LAB CHEMISTRY METHOD 09/08/2024 8:51 PM [facility] Mean Bld Glu Estim. 117 mg/dL LAB CHEMISTRY METHOD 09/08/2024 8:51 PM [facility] Blood Venous blood specimen / Unknown Venipuncture / Unknown 09/08/2024 12:02 PM EST 09/08/2024 12:02 PM EST us Renny Ramirez MD LAB BLOOD ORDERABLES Final Resu lt Performing Organization Address City/[facility]/ZIP Co de Phone Number [facility] [address] [place] [address], [place] [phone] * (ABNORMAL) Comprehensive metabolic panel (09/08/2024 12:02 PM EST) Pathologist [facility] Sodium 141 133 - 145 mmol/L LAB CHEMISTRY METHOD 09/08/2024 5:20 PM [facility] Potassium 4.7 3.5 - 5.5 mmol/L LAB CHEMISTRY METHOD 09/08/2024 5:20 PM EST [facility] Chloride 111(H) 96 - 110 mmol/L LAB CHEMISTRY METHOD 09/08/2024 5:20 PM [facility] CO2 25 21 - 32 mmol/L LAB CHEMISTRY METHOD 09/08/2024 5:20 PM [facility] Anion Gap 5 3 - 11 LAB CHEMISTRY METHOD 09/08/2024 5:20 PM [facility] Glucose 114(H) 70 - 100 mg/dL LAB CHEMISTRY METHOD 09/08/2024 5:20 PM [facility] BUN 18 5 - 25 mg/dL LAB CHEMISTRY METHOD 09/08/2024 5:20 PM [facility] Creatinine 1.67(H) 0.50 - 1.10 mg/dL LAB CHEMISTRY METHOD 09/08/2024 5:20 PM [facility] eGFR 30(L) >=60 mL/min/1. 73m2 LAB CHEMISTRY METHOD 09/08/2024 5:20 PM [facility] Comment:Calculation based on the??Chronic Kidney Disease Epidemiology Collaboration (CKD-EPI) equation refit??without adjustment for race. BUN/Creatinine Ratio 10.8 LAB CHEMISTRY METHOD 09/08/2024 5:20 PM [facility] Calcium 9.0 8.5 - 10.5 mg/dL LAB CHEMISTRY METHOD 09/08/2024 5:20 PM [facility] AST (SGOT) 19 10 - 42 unit/L LAB CHEMISTRY METHOD 09/08/2024 5:20 PM [facility] ALT (SGPT) 13 10 - 60 unit/L LAB CHEMISTRY METHOD 09/08/2024 5:20 PM [facility] Alkaline Phosphatase 87 42 - 121 unit/L LAB CHEMISTRY METHOD 09/08/2024 5:20 PM [facility] Total Protein 5.9(L) 6.0 - 8.0 g/dL LAB CHEMISTRY METHOD 09/08/2024 5:20 PM [facility] Albumin 2.9(L) 3.2 - 5.0 g/dL LAB CHEMISTRY METHOD 09/08/2024 5:20 PM EST [facility] Total Bilirubin 0.3 0.0 - 1.4 mg/dL LAB CHEMISTRY METHOD 09/08/2024 5:20 PM EST [facility] Blood Venous blood specimen / Unknown Venipuncture / Unknown 09/08/2024 12:02 PM EST 09/08/2024 12:02 PM EST us Renny Ramirez MD LAB BLOOD ORDERABLES Final Resu lt [facility]) [facility] [address] [place] [address], [place] [phone] * External clinical lab (08/11/2024) Only the most recent of2 resultswithin the time period is included. Provider Onbase LAB BLOOD ORDERABLES Final Re sult * Depression Screening (03/02/2024) Pathologist [facility] Depression Screening Abstracted Historical Provider MD HEALTH MAINTENANCE Final Result * Falls Risk Assessment (08/18/2023) [facility] Falls Risk Assessment Abstracted Historical Provider MD HEALTH MAINTENANCE Final Result * Urine Albumin Creatinine Ratio (04/08/2023) Pathologist [facility] Urine Albumin Creatinine Ratio Abstracted Historical Provider MD HEALTH MAINTENANCE Final Result * DXA BONE [...] (World Health Organization Fracture Risk Assessment) [facility] Department of Internal Medicine recommends using National [...] (World Health Organization Fracture Risk Assessment) [facility] Department of Internal Medicine recommendsusing National Osteoporosis [...] or over-estimation of fracture risk by FRAX. Renny Ramirez MD IMG DXA PROCEDURES Final Result from Last 3 Months or Most Recently Relevant to Health Maintenance Insurance MEDICARE [facility] Care Teams Epic Director Relationship Specialty Start Date End Date Renny Ramirez MD [address] [place] [address] [phone] PCP - General Internal Medicine 02/14/20
--- OUTSIDE RECORDS SUMMARY | 2024-10-14 13:54 | XMS_ITS | Clinical Summary ---
Author Organization [facility] Address [address] [facility] [address] [place] [address] Phone Care Team Providers Care Recooperer Name Role Phone Renny Ramirez MD Primary Care Provider [phone] Allergies Active Allergy Reactions Criticality Noted Date [...] 1 (one) time each day 8 Active [place]-3 Fatty Acids 1360 MG capsule Take by [...] AM EST) Hemoglobin A1C 6.3(H) (4.0-5.6) % [facility] Comment: MONITORING: In known diabetic patients, hemoglobin A1c targets should be discussed with health care provider. DIAGNOSTIC USE: ??The [place] Diabetes Association (ADA) and the World Health [...] Supplement 1 Testing performed or reported by [facility], a Service of [facility], [address] [place] [id number] Mike Purdy MD, Armoring Machine Operator [facility]# [id number] Blood (Blood, Venous) 10/15/2022 11:30 AM EST 10/15/2022 11:32 AM EST Indra Rivera MD LAB BLOOD ORDERABLES Final Re sult [facility] from Last 3 Months or Most Recently Relevant to Health Maintenance Insurance MEDICARE [facility] MEDICARE [facility] Care Teams Recooperer Relationship Specialty Start Date End Date Renny Ramirez MD PCP - General Internal Medicine 04/15/22
--- OUTSIDE RECORDS SUMMARY | 2024-10-14 13:54 | XMS_ITS | Encounter Summary ---
Author Organization [facility] Address [address] [place] [address] Care Team Providers Care Veterinary Nurse Name Role Phone Renny Ramirez MD Primary Care Provider [phone] Reason for Visit * Reason Comments Follow-up 1 yr Encounter Details Date Type Department Care Team (Late st Contact Info) Description 10/04/2024 10:50 AM EST Office Visit [facility] [address] [phone] Shawna Puri MD [address] [place] [address] LBBB (left bundle branch block) (Primary Dx); Coronary artery disease due to lipid rich plaque; Prosthetic aortic valve failure; Stage 3b chronic kidney disease (CMS/HCC); Obesity (BMI 30.0-34.9) Social History Tobacco Use Types Packs/Day Years Used Date Smoking Tobacco: Never Smokeless Tobacco: Never Alcohol Use Standard Drinks/Week Comments No 0 [...] Pulse 58 10/04/2024 10:39 AM EST Temperature - - Respiratory Rate - - Oxygen Saturation 96% 10/04/2024 10:39 AM EST Inhaled Oxygen Concentration - - Weight 96.2 kg (212 lb) 10/04/2024 10:39 AM EST Height 172.7 cm (5' 8 ) 10/04/2024 10:39 AM EST Body Mass Index 32.23 10/04/2024 10:39 AM EST documented in this encounter Ordered Prescriptions Prescription Sig Dispense Quantity Refills Last Filled Start Date End Date metoprolol succinate (TOPROL-XL) 50 mg 24 hr tablet Take 1 tablet (50 mg total) by mouth 1 (one) time each day. Do not crush or chew. 90 each 3 10/04/2024 10/04/2025 documented in this encounter Progress Notes * Shawna Puri MD - 10/04/2024 10:50 AM EST -Jessica White is a 84 y.o. old female This woman as well as I can tell was last seen here in June 2023 by [facility]. 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 FRIEDMAN to LAD and vein graft to RPDA. The valve is a bioprosthetic valve. She also had a dilated cardiomyopathy, A-fib, left bundle, hypertension, hyperlipidemia and coronary artery disease. She had postop A-fib. She wore a monitor after discharge but could only tolerate it for 5 days. No A-fib was found. Anticoagulation was stopped. Lipids have been good on rosuvastatin. She is a diabetic. Echo in May 2023 showed questionable hypokinesis atthe base of the inferior wall. EF 50 to 60%. No other significant abnormalities. She has had some problems in the past with lower extremity edema taking Lasix and wearing compression stockings. She is also followed by nephrology. A note from nephrology from July 27 also notes that she has had a history of knee surgery, rotator cuff surgery.. She has never smoked. She rarely if ever has a drink. Her creatinine July 26 was 3.77. The note says that at that time she had DINO likely due to tubular injury. She was asked to hold Lasix, vitamin C and gabapentin. Reduced metformin. Started on sodium bicarbonate given metabolic acidosis. They thought she would be a good candidate for Jardiance or Farxiga once her renal function was back to baseline. ROS: When she had the acute kidney injury she felt poorly. She had tremors. She was weak and tired.She did not drive for a while. She stopped going to cardiac rehab which she is now back to. She hasnot had any edema. No chest pain palpitations. When she gets anxious she feels as though she can get somewhat short of breath. On September 08 or thereabouts she had labs. She had an LDL cholesterol of67 and an HDL of 52 with triglycerides of 168. Hemoglobin A1c of 5.7. And her creatinine was back down to 1.67 and she just had new labs at [facility]. Yesterday. PAST MEDICAL HISTORY: Patient Active Problem List Diagnosis Date Noted Prosthetic aortic valve failure 10/04/2024 LBBB (left bundle branch block) 10/04/2024 Dyspnea on exertion 07/14/2024 Low back pain 07/14/2024 Osteoarthritis 07/14/2024 Unsteady gait when walking 07/14/2024 Aortic valve stenosis 07/14/2024 Arteriosclerosis of coronary artery 07/14/2024 Spinal stenosis of lumbar region 07/14/2024 Obesity with body mass index 30 or greater 07/14/2024 Thoracic compression fracture (CMS/HCC) 10/27/2023 Hiatal hernia 08/18/2023 Gastroesophageal reflux disease without esophagitis 08/18/2023 Stage 3b chronic kidney disease (CMS/HCC) 06/25/2023 Palpitations 06/25/2023 CKD (chronic kidney disease) 06/25/2023 Dilated cardiomyopathy (CMS/HCC) 12/01/2022 Cardiac murmur 04/15/2022 Dyspnea on exertion 04/15/2022 Hypertension 04/15/2022 Hypertensive heart and renal disease with (congestive) heart failure (CMS/HCC) 04/15/2022 Osteoarthritis 04/15/2022 Acute nontraumatic kidney injury (CMS/HCC) 04/15/2022 Stage 1 chronic kidney disease 04/15/2022 Coronary arteriosclerosis 04/15/2022 Gastroesophageal reflux disease 04/15/2022 Diabetes mellitus (CMS/HCC) 04/15/2022 History of aortic valve replacement 12/25/2020 Primary osteoarthritis of both knees 07/30/2020 Bilateral carpal tunnel syndrome 08/14/2018 Atrial fibrillation (CMS/HCC) 03/22/2018 Coronary artery disease due to lipid rich plaque 12/28/2017 Aortic stenosis, moderate 12/28/2017 Moderate aortic valve stenosis 12/28/2017 Other chest pain 08/26/2017 Chest pain 08/26/2017 Cholelithiasis 04/23/2017 Biliary calculus 04/23/2017 Osteoporosis 04/08/2017 Diabetes mellitus type 2 with neurological manifestations ([facility] 03/31/2016 Disorder of nervous system due to type 2 diabetes mellitus ([facility]) 03/31/2016 Onychomycosis 09/10/2015 Obesity (BMI 30.0-34.9) 02/14/2014 Type 1 diabetes mellitus ([facility] 02/14/2014 Type II or unspecified type diabetes mellitus with ophthalmic manifestations, uncontrolled(250.52) ([facility]) 02/14/2014 Morbid obesity ([facility]) 02/14/2014 Microalbuminuria 08/16/2012 Lumbar spinal stenosis 05/31/2008 Hyperlipidemia 11/18/2005 Heartburn 11/18/2005 Essential hypertension, benign 11/18/2005 Type II diabetes mellitus with renal manifestations ([facility] 11/18/2005 Edema 11/18/2005 Benign essential hypertension 11/18/2005 Hyperlipidemia 11/18/2005 FAMILY HISTORY: Family History Problem Relation Name Age of Onset Heart attack Mother 74.00 Heart attack Father Diabetes Brother x 1 Breast cancer Neg Hx SOCIAL HISTORY: Social History Tobacco Use Smoking status: Never Smokeless tobacco: Never Substance Use Topics Alcohol use: No ACTIVE MEDICATIONS: Outpatient Medications Prior to Visit Medication Sig Dispense Refill acetaminophen (TYLENOL) 500 mg tablet Take 6 tablets (3,000 mg total) by mouth 1 (one) time each day. aspirin 81 mg chewable tablet CHEW 1 TABLET BY MOUTH EVERY DAY blood sugar diagnostic (OneTouch Verio test strips) test strip USE TO TEST BLOOD SUGAR TWICE A DAY cetirizine (ZyrTEC) 10 mg tablet TAKE 1 TABLET BY MOUTH EVERY DAY docusate sodium (COLACE) 100 mg capsule Take 1 Capsule by mouth 2 times daily. furosemide (LASIX) 20 mg tablet TAKE 1 TABLET BY MOUTH 5 DAYS PER WEEK insulin glargine (Lantus Solostar U-100 Insulin) 100 unit/mL (3 mL) injection pen 10 Units at bedtime. metFORMIN (GLUCOPHAGE) 500 mg tablet Take 1 tablet (500 mg total) by mouth 1 (one) time each day with breakfast. metoprolol tartrate (LOPRESSOR) 50 mg tablet Take 1 Tablet by mouth 2 times daily. ondansetron (ZOFRAN) 4 mg tablet Take 1 Tablet by mouth every 8 hours as needed for Nausea. pen needle, diabetic 32 gauge x needle Use to inject insulin once daily rosuvastatin (CRESTOR) 40 mg tablet Take 1 Tablet by mouth at bedtime. solifenacin (VESICARE) 5 mg tablet TAKE 1 TABLET BY MOUTH EVERY DAY spironolactone (ALDACTONE) 50 mg tablet Take 1 Tablet by mouth daily. traMADoL (ULTRAM) 50 mg tablet Take 1 tablet (50 mg total) by mouth every 12 (twelve) hours if needed for severe pain. for pain Max Daily Amount: 100 mg (Patient taking differently: Take 1 tablet (50mg total) by mouth 2 (two) times a day. for pain) 56 tablet 0 amoxicillin (AMOXIL) 500 mg capsule Take 4 capsules (2,000 mg total) by mouth 1 (one) time. (Patient not taking: Reported on 10/04/2024) ascorbic acid (VITAMIN C) 250 mg tablet Take 1 Tablet by mouth daily. (Patient not taking: Reportedon 10/04/2024) calcium carbonate-vitamin D3 600 mg-5 mcg (200 unit) per tablet Take 1 Tab by mouth 2 times daily. (Patient not taking: Reported on 10/04/2024) cholecalciferol (VITAMIN D-3) 125 mcg (5,000 unit) capsule Take by mouth. (Patient not taking: Reported on 10/04/2024) coffee xt/phosphatidyl serine (NEURIVA ORIGINAL ORAL) Misc Natural Products (Neuriva) Cap : Take bymouth. - Oral (Patient not taking: Reported on 10/04/2024) cyanocobalamin (VITAMIN B-12) 1,000 mcg tablet TAKE 1 TABLET BY MOUTH EVERY DAY (Patient not taking: Reported on 10/04/2024) DM/PE/acetaminophen/doxylamine (PJ-ZQ-WYESAB/SS-BKOLQX-NVDZXIJ ORAL) PO-DF-HN-APAP&GE-YYHWP-FH-APAP TABLET THERAPY PACK : Take by mouth. - Oral (Patient not taking: Reported on 10/04/2024) estradioL (ESTRACE) 0.01 % (0.1 mg/gram) vaginal cream .5 gm appy digitally to vagina three times weekly (Patient not taking: Reported on 10/04/2024) fluticasone propionate (FLONASE) 50 mcg/actuation nasal spray Administer into affected nostril(s). (Patient not taking: Reported on 10/04/2024) folic acid (FOLVITE) 1 mg tablet Take 1 tablet (1,000 mcg total) by mouth 1 (one) time each day. (Patient not taking: Reported on 10/04/2024) gabapentin (NEURONTIN) 100 mg capsule Take 2 Capsules by mouth daily. (Patient not taking: Reportedon 10/04/2024) hydrocortisone 2.5 % cream Apply topically 2 times daily. (Patient not taking: Reported on 10/04/2024) insulin detemir (LEVEMIR) 100 unit/mL injection Inject 14 Units under the skin at bedtime. lactulose (CHRONULAC) solution Take 15-30 mL by mouth daily (with breakfast). (Patient not taking: Reported on 10/04/2024) losartan (COZAAR) 25 mg tablet Take 1 tablet (25 mg total) by mouth 1 (one) time each day. (Patientnot taking: Reported on 10/04/2024) mv-min/iron/folic/calcium/vitK (WOMEN'S MULTIVITAMIN ORAL) Take 1 Tab by mouth daily. (Patient not taking: Reported on 10/04/2024) omega-3 acid ethyl esters (LOVAZA) 1 gram capsule Take by mouth. (Patient not taking: Reported on 10/04/2024) vit C/E/Zn/coppr/lutein/zeaxan (PRESERVISION AREDS-2 ORAL) Multiple Vitamins- Minerals (PreserVisionAREDS 2) Cap : Take by mouth. - Oral (Patient not taking: Reported on 10/04/2024) vitamin E mixed 400 unit capsule Take 1 Capsule by mouth daily. (Patient not taking: Reported on 10/04/2024) No facility-administered medications prior to visit. ALLERGIES: @ALL@ PHYSICAL EXAM: Blood pressure 118/60, pulse 58, height 1.727 m (68 ), weight 96.2 kg (212 lb), SpO2 96%, not currently . Physical Exam Constitutional: Appearance: Normal appearance. She is obese. HENT: Head: Normocephalic. Mouth/Throat: Comments: Missing several teeth. Eyes: Extraocular Movements: Extraocular movements intact. Pupils: Pupils are equal, round, and reactive to light. Neck: Vascular: No carotid bruit. Cardiovascular: Rate and Rhythm: Normal rate and regular rhythm. Heart sounds: No murmur heard. No friction rub. No gallop. Pulmonary: Effort: Pulmonary effort is normal. Breath sounds: Normal breath sounds. Abdominal: General: Bowel sounds are normal. Palpations: Abdomen is soft. Musculoskeletal: Cervical back: Neck supple. Right lower leg: No edema. Left lower leg: No edema. Skin: General: Skin is warm and dry. Neurological: General: No focal deficit present. Mental Status: She is oriented to person, place, and time. Psychiatric: Mood and Affect: Mood normal. EKG: Sinus bradycardia at a rate of 49 with a left bundle branch block which is chronic TESTING: N see above. Appointment on 09/08/2024 Component Date Value Ref Range Status Sodium 09/08/2024 141 133 - 145 mmol/L Final Potassium 09/08/2024 4.7 3.5 - 5.5 mmol/L Final Chloride 09/08/2024 111 (H) 96 - 110 mmol/L Final CO2 09/08/2024 25 21 - 32 mmol/L Final Anion Gap 09/08/2024 5 3 - 11 Final Glucose 09/08/2024 114 (H) 70 - 100 mg/dL Final BUN 09/08/2024 18 5 - 25 mg/dL Final Creatinine 09/08/2024 1.67 (H) 0.50 - 1.10 mg/dL Final eGFR 09/08/2024 30 (L) >=60 mL/min/1.73m2 Final Calculation based on the Chronic Kidney Disease Epidemiology Collaboration (CKD- EPI) equation refitwithout adjustment for race. BUN/Creatinine Ratio 09/08/2024 10.8 Final Calcium 09/08/2024 9.0 8.5 - 10.5 mg/dL Final AST (SGOT) 09/08/2024 19 10 - 42 unit/L Final ALT (SGPT) 09/08/2024 13 10 - 60 unit/L Final Alkaline Phosphatase 09/08/2024 87 42 - 121 unit/L Final Total Protein 09/08/2024 5.9 (L) 6.0 - 8.0 g/dL Final Albumin 09/08/2024 2.9 (L) 3.2 - 5.0 g/dL Final Total Bilirubin 09/08/2024 0.3 0.0 - 1.4 mg/dL Final Cholesterol 09/08/2024 153 0 - 200 mg/dL Final Triglycerides 09/08/2024 168 (H) 0 - 150 mg/dL Final HDL 09/08/2024 52 >=40 mg/dL Final LDL Calculated 09/08/2024 67 0 - 100 mg/dL Final VLDL Cholesterol Paul 09/08/2024 33.6 mg/dL Final Non HDL Chol. (LDL+VLDL) 09/08/2024 101 <145 mg/dL Final Chol/HDL Ratio 09/08/2024 2.9 0.0 - 4.4 Final Hemoglobin A1C 09/08/2024 5.7 <6.5 % Final Mean Bld Glu Estim. 09/08/2024 117 mg/dL Final Abstract on 06/02/2024 Component Date Value Ref Range Status Medicare Annual Wellness Visit 03/02/2024 Abstracted Final Depression Screening 03/02/2024 Abstracted Final Falls Risk Assessment 08/18/2023 Abstracted Final Annual BMP Blood Test 03/02/2024 Abstracted Final Pap smear 04/03/2008 Abstracted, No interpretation Final Urine Albumin Creatinine Ratio 04/08/2023 Abstracted Final LDL/HDL Ratio 03/02/2024 4 0 - 4 Final Triglycerides 03/02/2024 151 (A) 0 - 150 mg/dL Final Cholesterol 03/02/2024 148 0 - 200 mg/dL Final HDL 03/02/2024 42 >=40 mg/dL Final LDL Cholesterol 03/02/2024 76 0 - 100 mg/dL Final Hemoglobin A1C 03/02/2024 7.0 (A) <=6.5 % Final ASSESSMENT/PLAN: Problem List Items Addressed This Visit Stage 3b chronic kidney disease ([facility]) Obesity (BMI 30.0-34.9) Coronary artery disease due to lipid rich plaque Relevant Orders ECG 12 lead Prosthetic aortic valve failure LBBB (left bundle branch block) - Primary Relevant Orders ECG 12 lead Orders Placed This Encounter Procedures ECG 12 lead She is currently taking 50 twice daily of metoprolol tartrate and is bradycardic. We are going to change her medication to metoprolol succinate 50 once a day. No other medication changes. Lipids and blood pressure are quite good. Nephrology might start her on an SGLT2 inhibitor if the creatinine is satisfactory. She is going back to cardiac rehab to get some exercise. She does walk with a walker.It is 1 that she can sit on. Return to see Chloé in 6 months. The [facility] team will continue to co-manage this patient following the plan of care as established by my initial visit and as per AHA guidelines for ongoing management and surveillance of bioprosthetic aortic valve, CAD, CKD. . This will include medication titration, initiation of appropriate medications and further titration, and diagnostic studies to manage this disease process. @ESIGNATURE@ documented in this encounter Plan of Treatment Upcoming Encounters Date Type Department Care Team (Late st Contact Info) Description 10/27/2024 2:40 PM EST Office Visit Gastroenterology - [place] 175 [facility] [address] [phone] Arlene Beard PA 175 [facility] 200 [place] [address] 11/15/2024 10:15 AM EDT Office Visit Orthopedic Surgery [facility] [address] [phone] Rogers Walter, DPM [address] [address] 03/01/2025 1:00 PM EDT Appointment Radiology Department - [address] [phone] 03/17/2025 1:00 PM EDT Office Visit Adult Medicine [address] [phone] Renny Ramirez MD [address] [place] [id number] documented as of this encounter Procedures Procedure Name Priority Date/Time Associated Diagnosis Comments ECG 12-LEAD Routine 10/04/2024 11:06 AM EST LBBB (left bundle branch block) Coronary artery disease due to lipid rich plaque documented in this encounter Results * ECG 12 lead (10/04/2024 11:06 AM EST) Ventricular Rate ECG 49 BPM GEMUSE Atrial Rate 49 BPM GEMUSE P-R Interval 182 ms GEMUSE QRS Duration 122 ms GEMUSE Q-T Interval 488 ms GEMUSE QTc 440 ms GEMUSE P Wave [place] 5 degrees GEMUSE R [place] -26 degrees GEMUSE T [place] 81 degrees GEMUSE ECG Interpretation Sinus bradycardia Left ventricular hypertrophy with QRS widening and repolarization abnormality Abnormal ECG When compared with ECG of 07-DEC-2013 08:06, Vent. rate has decreased BY ??38 BPM QRS duration has increased T wave inversion now evident in Lateral leads Confirmed by Helen PURI, SHAWNA ([id number]) on 10/04/2024 11:37:33 AM GEMUSE 10/04/2024 11:0 6 AM EST 10/04/2024 11:37 AM EST us Shawna Puri MD ECG ORDERABLES Final Result GEMUSE documented in this encounter Visit Diagnoses Diagnosis LBBB (left bundle branch block)- Primary Other left bundle branch block Coronary artery disease due to lipid rich plaque Prosthetic aortic valve failure Stage 3b chronic kidney disease (CMS/HCC) Obesity (BMI 30.0-34.9) Encounter for screening mammogram for breast cancer documented in this encounter Discontinued Medications Medication Sig Discontinue Reason Start Date End Da te metoprolol tartrate (LOPRESSOR) 50 mg tablet Take 1 Tablet by mouth 2 times daily. Dose adjustment 04/09/2023 10/04/2024 documented as of this encounter Care Teams Veterinary Nurse Relationship Specialty Start Date End Date Renny Ramirez MD [address] [place] [address] PCP - General Internal Medicine 02/14/20 documented as of this encounter
== END 2024-10-14 14:10 | disposition home or self-care (01) ==
PROVIDERS: PCP Internal Medicine; Visit Provider Internal Medicine Nephrology
DX: N18.31 Chronic kidney disease, stage 3a (principal); I10 Essential (primary) hypertension
CPT/HCPCS: 99214

== ENCOUNTER → 2024-10-14 13:31 | Outpatient (BNVA) | payer MEDICARE, OTHER, SELFPAY | PROVIDERS: PCP Internal Medicine; Visit Provider Internal Medicine Nephrology | DX: I12.9 Hypertensive chronic kidney disease with stage 1 through stage 4 chronic kidney disease, or unspecified chronic kidney disease (principal); N18.31 Chronic kidney disease, stage 3a | CPT/HCPCS: 99212 ==

== ENCOUNTER 2024-11-11 14:05 | Inpatient (IN) | payer MEDICARE, OTHER, SELFPAY ==
--- NOTE | ~2024-11-11 | XR_ITS ---
EXAMINATION: XR ABDOMEN KUB CLINICAL INDICATION: constipation COMPARISON: None available. TECHNIQUE: AP view of the abdomen. FINDINGS: There are scattered throughout intestine. Stool in the right hemicolon. No intestinal dilatation. No air-fluid levels. Multilevel thoracolumbar spondylosis and a shaped curvature of the thoracolumbar spine. Sternal wires. Vascular clips in the mediastinum. XR/XR KUB IMPRESSION: No intestinal obstruction pattern. Electronically signed by: Marvel Ayala MD 11/11/2024 03:06 PM EDT
[2024-11-11 14:17] VITALS: BP 114/66; BP 119/45; PULSE 64; RESP 18; TEMP 37.1; O2SAT 100; O2SAT 99; BMI 33.5
--- NOTE | 2024-11-11 14:30 | ED_ITS ---
HPI - General Adult General Chief complaint: General Medical Stated complaint: CONSTIPATION, NO BM [id number] PER EMS Time Seen by Provider: 11/11/24 16:33 Source: patient and EMS Mode of arrival: EMS Limitations: no limitations History of Present Illness ED Provider: ELIF Antunez HPI narrative: 84-year-old female history of hypertension, CKD presents with concerns she may be constipated but she is unclear when she last had her bowel movement. She reports she is passing gas. No new nausea, vomiting, diarrhea, abdominal pain, fevers, chills, sick contacts, headaches, vision changes, dizziness and weakness. If anything she reports she is feeling tired and has been eating less than usual. Related Data Home Medications ?Medication ?Instructions ?Recorded ?Confirmed aspirin 81 mg chewable tablet 1 tab PO DAILY 05/03/24 blood sugar diagnostic (OneTouch #10 ea 05/03/24 Verio test strips) cetirizine 10 mg tablet 10 mg PO DAILY 05/03/24 metoprolol tartrate 50 mg tablet 50 mg PO BID 05/03/24 pen needle, diabetic 32 gauge x #1,200 ea 05/03/24 (BD Sophia 2nd Gen Pen Needle) solifenacin 5 mg tablet 5 mg PO DAILY 05/03/24 tramadol 50 mg tablet 50 mg PO BID PRN 05/03/24 calcium 500 mg (as 1 tab PO DAILY 05/06/24 carbonate)-vitamin D3 10 mcg (400 unit) tablet (Calcium 500 + D) cholecalciferol (vitamin D3) 125 125 mcg PO DAILY 05/06/24 mcg (5,000 unit) capsule docusate sodium 100 mg capsule 100 - 200 mg PO DAILY 05/06/24 fluticasone propionate 50 1 spray intranasal DIRECTED 05/06/24 mcg/actuation nasal spray,suspension (Flonase Allergy Relief) gabapentin 100 mg capsule 200 mg PO BEDTIME 05/06/24 garlic 1250 mg tablet 1,250 mg PO DAILY 05/06/24 [id number] glycn-C 500 1 cap PO DIRECTED 05/06/24 mg-400 mg capsule hydrocortisone 2.5 % topical cream 1 appl topical DIRECTED PRN 05/06/24 insulin detemir U-100 100 unit/mL 55 unit subcut BEDTIME 05/06/24 (3 mL) subcutaneous pen (Levemir FlexPen) lactulose 10 gram/15 mL oral 10 - 20 g PO DAILY 05/06/24 solution metformin 500 mg tablet 1,000 mg PO BID 05/06/24 multivitamin 1 tab PO DAILY 05/06/24 omega-3 fatty acids 1,000 mg PO DIRECTED 05/06/24 omeprazole 20 mg capsule,delayed 20 mg PO DAILY 05/06/24 release rosuvastatin 20 mg tablet 20 mg PO DAILY 05/06/24 vit C 250 mg-vit E 90 mg-zinc 40 2 tab PO DAILY 05/06/24 mg-copper 1 ag-lmlrde-rthlqu capsule (PreserVision AREDS-2) vitamin E 400 unit tablet 400 unit PO DAILY 05/06/24 folic acid 1 mg tablet 1 mg PO DAILY 07/27/24 furosemide 20 mg tablet 20 mg PO DAILY 10/14/24 10/14/24 Previous Rx's ?Medication ?Instructions ?Recorded spironolactone 50 mg tablet 50 mg PO DAILY #90 tabs 05/06/24 sodium bicarbonate 650 mg tablet 650 mg PO BID #180 tabs 08/04/24 empagliflozin 10 mg tablet 10 mg PO DAILY #30 tabs 10/14/24 Allergies Allergy/AdvReac Type Severity Reaction Status Date / Time adhesive [BANDAGE,ADHESIVE] Allergy Unknown TOOK OFF Verified 11/11/24 14:31 THE SKIN empagliflozin [From Synjardy] Allergy Unknown Verified 11/11/24 14:31 levofloxacin [From LEVAQUIN] AdvReac Unknown VOMITING Verified 11/11/24 14:31 atorvastatin [From Lipitor] AdvReac Unknown Verified 11/11/24 14:31 Review of Systems 2 Review of Systems: Yes all other systems are reviewed and are negative [facility] Past Medical History Attestation statement: The following information was validated with the patient. Source: old records reviewed and nursing notes reviewed Surgical History History of knee surgery H/O repair of rotator cuff H/O aortic valve replacement Family History Family History Mother Heart disease Hypertension Father Heart disease Hypertension Daughter Diabetes Kidney transplanted Social History Social History Alcohol intake: never Comment: Rare Patient Tobacco Use Status: Never used Tobacco Smoked in Last 30 Days: No Use of substances other than those prescribed or required for medical reasons: No Any prior treatment program specific to substance use: No Advance Directives: No Advance Directives Information Provided: Yes Do you have a plan to hurt others: No Plan Physical Exam ED Vital Signs: Vital Signs - 24 hr 11/11/24 14:17 11/11/24 15:38 11/11/24 18:41 Temperature 98.7 F Pulse Rate 64 61 61 Respiratory Rate 18 18 18 Blood Pressure 119/45 L 112/44 L 112/41 L Pulse Oximetry 99 98 100 Oxygen Delivery Method Room Air Room Air Room Air 11/11/24 19:28 Temperature 98.8 F Pulse Rate 62 Respiratory Rate 18 Blood Pressure 114/39 L Pulse Oximetry 99 Oxygen Delivery Method Room Air BMI result Body Mass Index 33.5 vss Appearance: Alert.? Oriented X3.? No acute distress.? Head: Normocephalic, atraumatic, no step-offs or deformities Eyes: Pupils equal, round and reactive to light.? Neck: Normal inspection.? Neck supple.? CVS: Normal heart rate and rhythm.? Pulses normal.? Respiratory: No respiratory distress.? Breath sounds normal.? Abdomen: Soft and nontender.? Skin: Skin warm and dry.? Normal skin color.? Normal skin turgor.? Extremities: No lower extremity edema.? No calf ttp. 5/5 strength to bilateral upper and lower extremities Neuro: Oriented X 3.? No motor deficit.? No sensory deficit. CN 2-12 intact Course Reevaluation(s) Reevaluation #1: CBC unremarkable. Chemistry still pending. UA with no infection. Flu, COVID, RSV negative. KUB with stool scattered throughout the intestines. Stool in the right hemicolon no interstitial dilation. No air-fluid levels. Multilevel thoracolumbar spondylosis. Sternal wires. Vascular clips. Patient has not yet had a bowel movement while here. However will hold on soapsuds enema Pending chemistry and improvement of symptoms. Time: 16:10 Reevaluation #2: Sign out to ELIF Fields Time: 16:10 Reevaluation #3: Received patient in sign-out pending chemistry and disposition. I evaluated patient at bedside: well appearing. her abdomen is obese, soft, ND/NT, no rebound or guarding. there are normoactive bs. no CVAT. global weakness w/ strength 4/5 throughout. I have reviewed all lab results. CBC is without leukocytosis or left shift. H&H around baseline. Chemistry without acute electrolyte abnormality requiring intervention. Chloride 110, which appears to be around patient's baseline when compared to priors. Acute on chronic kidney injury. Kidney function on 10/03/2024 shows BUN of 28 and creatinine 1.95. Today, her BUN is 34 and creatinine is 2.85. She does endorse 1 episode of vomiting yesterday however admits to chronic nausea and occasional vomiting. She denies any abdominal pain with this. Does not feel nauseous. No further episodes of vomiting. She states that she follows with [facility] nephrology Dr. Gomez who is aware of progressing CKD and is currently working with her to modify many of her home medications. Denies diarrhea. States she has been trying to increase her fluid intake at home. will order 1L IVF and repeat chemistry. patient is agreeable. Her kub shows scattered stool w/o evidence of obstruction. I am not concerned for obstruction as patient's exam is benign. she is passing flatus. Plan for re-evaluation. Time: 17:29 Additional Reevaluation(s): 2026 -- patient received 1 L of IV fluids. Repeat BMP showing BUN unchanged at 34, creatinine slightly improved to 2.57. Given acute on chronic kidney injury with generalized weakness, will admit to medicine. Patient agreeable. Dr. Avendaño to place admission orders. Medications Administered Discontinued Medications Generic Name Dose Route Start Last Admin Trade Name Freq PRN Reason Stop Dose Admin Sodium Chloride 1,000 mls @ 999 mls/hr 11/11/24 17:30 11/11/24 19:57 Ns IV 11/11/24 18:30 Infused .Q1H1M GERTRUDIS Infusion Medical Decision Making Medical Decision Making [facility] Narrative: 3531 84-year-old female presents for evaluation of constipation she is not sure when she had her last bowel movement however a nurse that visits her home since she may be constipated so they advised her to come in for evaluation. She is still passing gas and she does not report nausea, diarrhea, abdominal pain, fevers or chills. Physical exam benign. Tympanic upon percussion hypoactive bowel sounds. Nontender abdomen. Vital signs are stable. History and physical exam concerning for normal exam versus possible mild constipation. Unlikely obstruction, acute abdomen, ischemic bowel, metabolic derangements. Will rule out viral illness Plan- viral test, kub Differential Diagnosis Differential Diagnoses: The differential diagnosis associated with the presentation includes (History and physical exam concerning for normal exam versus possible mild constipation. Unlikely obstruction, acute abdomen, ischemic bowel, metabolic derangements. Will rule out viral illness) Admission/Observation Consideration of admission/observation: Escalation of care including admission/observation considered Lab Data MDM Lab Attestation statement: I reviewed the patient's lab results. 11/11/24 15:28 11/11/24 19:49 Labs: Lab Results 11/11/24 11/11/24 11/11/24 Range/Units 14:37 15:28 15:43 WBC 8.5 (4.8-10.8) X10*3/uL RBC 4.02 L (4.20-5.50) X10*6/uL Hgb 12.3 (12.0-16.0) g/dl Hct 36.4 L (37.0-47.0) % MCV 90.5 (80.0-98.0) fL MCH 30.6 (27.0-33.0) pg MCHC 33.8 (31.0-35.0) g/dl RDW 13.8 (11.0-16.0) % Plt Count 178 D (160-400) X10*3/uL MPV 10.4 (9.4-12.3) fL Immature Gran % (Auto) 0.4 (0.0-0.4) % Neut % (Auto) 63.9 (45-73) % Lymph % (Auto) 25.7 (20-40) % Russell % (Auto) 8.8 (2-11) % Eos % (Auto) 0.8 (0-4) % Baso % (Auto) 0.4 (0-2) % Lymph # (Auto) 2.2 (1.2-4.9) X10*3/uL Russell # (Auto) 0.8 (0.1-1.2) X10*3/uL Eos # (Auto) 0.1 (0.0-0.4) X10*3/uL Baso # (Auto) 0.0 (0.0-0.2) X10*3/uL Abs Immat Gran (auto) 0.03 (0.00-0.03) X10*3/uL Absolute Neuts (auto) 5.4 (2.0-8.3) x10*3/uL Absolute Nucleated RBC 0.000 (0.0-0.012) X10*3/uL Nucleated RBC % (auto) 0.0 (0.0-0.2) /100WBC Sodium 136 (135-145) mmol/L Potassium 3.9 (3.3-5.1) mmol/L Chloride 110 H (96-108) mmol/L Carbon Dioxide 16 L (22-29) mmol/L Anion Gap 14 (12-20) BUN 34 H (9-16) mg/dL Creatinine 2.85 H (0.5-1.4) mg/dL Estim Creat Clear Calc 18.8 Estimated GFR 16 Random Glucose 149 H (60-115) mg/dL Calcium 9.3 (8.4-10.2) mg/dL Magnesium 2.1 (1.6-2.6) mg/dL Total Bilirubin 0.3 (0.0-1.0) mg/dL AST 30 (5-31) U/L ALT 10 (0-31) U/L Alkaline Phosphatase 74 (39-117) U/L Total Protein 6.6 (6.5-8.0) g/dL Albumin 3.4 L (3.5-5.0) g/dL Urine Color Yellow Urine Appearance Turbid Urine pH 5.0 (5.0-9.0) Ur Specific Veteran 1.020 (1.005-1.025) Urine Protein 100 (2+) H (Neg-Trace) mg/dL Urine Glucose (UA) >=1000 H (Negative) mg/dL Urine Ketones Negative (Negative) mg/dL Urine Blood Small (1+) H (Negative) Urine Nitrite Negative (Negative) Ur Leukocyte Esterase Moderate (2+) H (Negative) Urine RBC 0-2 (0-2) /HPF Urine WBC 6-10 (0-5) /HPF Ur Squamous Epith Cells 3-5 (0-2) /HPF Urine Bacteria None Seen (None Seen) Hyaline Casts 6-10 (0-2) /LPF Granular Casts Present Influenza Type A (PCR) NEGATIVE (Negative) Influenza Type B (PCR) NEGATIVE (Negative) RSV RNA Qual (PCR) NEGATIVE (Negative) SARS-CoV-2 RNA (RT-PCR) NEGATIVE (Negative) 11/11/24 Range/Units 19:49 WBC (4.8-10.8) X10*3/uL RBC (4.20-5.50) X10*6/uL Hgb (12.0-16.0) g/dl Hct (37.0-47.0) % MCV (80.0-98.0) fL MCH (27.0-33.0) pg MCHC (31.0-35.0) g/dl RDW (11.0-16.0) % Plt Count (160-400) X10*3/uL MPV (9.4-12.3) fL Immature Gran % (Auto) (0.0-0.4) % Neut % (Auto) (45-73) % Lymph % (Auto) (20-40) % Russell % (Auto) (2-11) % Eos % (Auto) (0-4) % Baso % (Auto) (0-2) % Lymph # (Auto) (1.2-4.9) X10*3/uL Russell # (Auto) (0.1-1.2) X10*3/uL Eos # (Auto) (0.0-0.4) X10*3/uL Baso # (Auto) (0.0-0.2) X10*3/uL Abs Immat Gran (auto) (0.00-0.03) X10*3/uL Absolute Neuts (auto) (2.0-8.3) x10*3/uL Absolute Nucleated RBC (0.0-0.012) X10*3/uL Nucleated RBC % (auto) (0.0-0.2) /100WBC Sodium 138 (135-145) mmol/L Potassium 3.3 (3.3-5.1) mmol/L Chloride 115 H (96-108) mmol/L Carbon Dioxide 13 L (22-29) mmol/L Anion Gap 13 (12-20) BUN 34 H (9-16) mg/dL Creatinine 2.57 H (0.5-1.4) mg/dL Estim Creat Clear Calc 20.8 Estimated GFR 18 Random Glucose 87 (60-115) mg/dL Calcium 8.6 D (8.4-10.2) mg/dL Magnesium (1.6-2.6) mg/dL Total Bilirubin (0.0-1.0) mg/dL AST (5-31) U/L ALT (0-31) U/L Alkaline Phosphatase (39-117) U/L Total Protein (6.5-8.0) g/dL Albumin (3.5-5.0) g/dL Urine Color Urine Appearance Urine pH (5.0-9.0) Ur Specific Veteran (1.005-1.025) Urine Protein (Neg-Trace) mg/dL Urine Glucose (UA) (Negative) mg/dL Urine Ketones (Negative) mg/dL Urine Blood (Negative) Urine Nitrite (Negative) Ur Leukocyte Esterase (Negative) Urine RBC (0-2) /HPF Urine WBC (0-5) /HPF Ur Squamous Epith Cells (0-2) /HPF Urine Bacteria (None Seen) Hyaline Casts (0-2) /LPF Granular Casts Influenza Type A (PCR) (Negative) Influenza Type B (PCR) (Negative) RSV RNA Qual (PCR) (Negative) SARS-CoV-2 RNA (RT-PCR) (Negative) Critical Care Time Critical Care Time Critical Care Time: No Discharge Plan Discharge Clinical Impression: Constipation Patient Disposition: Still a Patient Instructions: Constipation (ED) Additional Instructions: Take your medications as prescribed. If you were prescribed antibiotics today, it is important that you take your medication to their entirety, do not skip any doses, do not finish them early. Follow-up with your primary care provider this week. Return to the emergency department with new or worsening symptoms. Such as fevers, chills, chest pain, shortness of breath, nausea, vomiting, dizziness, headache, vision changes, lethargy In case of emergency call 911 Prescriptions: No Action sodium bicarbonate 650 mg tablet 650 mg PO BID Qty: 180 1RF metoprolol tartrate 50 mg tablet 50 mg PO BID tramadol 50 mg tablet 50 mg PO BID PRN solifenacin 5 mg tablet 5 mg PO DAILY (DME) OneTouch Verio test strips Strip See Rx Instructions .ROUTE BID Qty: 10 Rx Instructions: As directed cetirizine 10 mg tablet 10 mg PO DAILY aspirin 81 mg tablet,chewable 1 tab PO DAILY (DME) pen needle, diabetic [BD Sophia 2nd Gen Pen Needle] 32 gauge x 5/32 needle See Rx Instructions .ROUTE .MEDSUPPLY Qty: 1200 Rx Instructions: As directed docusate sodium 100 mg capsule 100 - 200 mg PO DAILY omeprazole 20 mg capsule,delayed release(DR/EC) 20 mg PO DAILY gabapentin 100 mg capsule 200 mg PO BEDTIME omega-3 fatty acids Capsule 1,000 mg PO DIRECTED Levemir FlexPen 100 unit/mL (3 mL) insulin pen 55 unit subcut BEDTIME calcium carbonate-vitamin D3 [Calcium 500 + D] 500 mg-10 mcg (400 unit) tablet 1 tab PO DAILY multivitamin Tablet 1 tab PO DAILY metformin 500 mg tablet 1,000 mg PO BID garlic 1,250 mg tablet 1,250 mg PO DAILY [id number]-iadsvogzio-tz glycn-C 500-400 mg capsule 1 cap PO DIRECTED vitamin E 400 unit tablet 400 unit PO DAILY hydrocortisone 2.5 % cream 1 appl topical DIRECTED PRN rosuvastatin 20 mg tablet 20 mg PO DAILY PreserVision AREDS-2 250-90-40-1 mg capsule 2 tab PO DAILY cholecalciferol (vitamin D3) 125 mcg (5,000 unit) capsule 125 mcg PO DAILY fluticasone propionate [Flonase Allergy Relief] 50 mcg/actuation spray,suspension 1 spray intranasal DIRECTED Rx Instructions: administer into each nostril lactulose 10 gram/15 mL solution 10 - 20 g PO DAILY spironolactone 50 mg tablet 50 mg PO DAILY Qty: 90 4RF folic acid 1 mg tablet 1 mg PO DAILY furosemide 20 mg tablet 20 mg PO DAILY empagliflozin 10 mg tablet 10 mg PO DAILY Qty: 30 3RF Print Language: [place]
[2024-11-11 15:28] LABS: Influenza A PCR NEGATIVE (Negative); Influenza B PCR NEGATIVE (Negative); Resp Syncy Virus RNA Qual PCR NEGATIVE (Negative); SARS COV2 PCR INHOUSE NEGATIVE (Negative)
[2024-11-11 15:38] VITALS: BP 112/44; PULSE 61; RESP 18; O2SAT 98
[2024-11-11 15:41] LABS: Basophils Percent Auto 0.4 % (0-2); Eosinophils Absolute Auto 0.1 X10*3/uL (0.0-0.4); Eosinophils Percent Auto 0.8 % (0-4); Hematocrit 36.4 % (37.0-47.0); Hemoglobin 12.3 g/dl (12.0-16.0); Imm Gran Abs Auto 0.03 X10*3/uL (0.00-0.03); Imm Gran Pct Auto 0.4 % (0.0-0.4); Lymphocytes Absolute Auto 2.2 X10*3/uL (1.2-4.9); Lymphocytes Percent Auto 25.7 % (20-40); MANUAL DIFF FLAG NO; Mean Corpuscular HGB Conc 33.8 g/dl (31.0-35.0); Mean Corpuscular Hemoglobin 30.6 pg (27.0-33.0); Mean Corpuscular Volume 90.5 fL (80.0-98.0); Mean Platelet Volume 10.4 fL (9.4-12.3); Monocytes Absolute Auto 0.8 X10*3/uL (0.1-1.2); Monocytes Percent Auto 8.8 % (2-11); Neutrophils Absolute Auto 5.4 x10*3/uL (2.0-8.3); Neutrophils Percent Auto 63.9 % (45-73); Platelet Count 178 X10*3/uL (160-400); Red Blood Count 4.02 X10*6/uL (4.20-5.50); Red Cell Distribution Width 13.8 % (11.0-16.0); White Blood Count 8.5 X10*3/uL (4.8-10.8)
[2024-11-11 16:05] LABS: Appearance Urine Turbid; Color Urine Yellow; Glucose Urine UA >=1000 mg/dL (Negative); Leukocyte Esterase Urine Moderate (2+) (Negative); Nitrite Urine Negative (Negative); UMIC TRIGGER UACC YES; Urine Blood Small (1+) (Negative); Urine Ketones Negative (Negative); Urine Protein 100 (2+) mg/dL (Neg-Trace)
[2024-11-11 16:18] LABS: Bacteria Urine None Seen (None Seen); Granular Casts Urine Present; RBC Urine 0-2 /HPF (0-2); UACC Culture Trigger YES
[2024-11-11 16:36] LABS: Alanine Aminotransferase 10 U/L (0-31); Albumin Level 3.4 g/dL (3.5-5.0); Anion Gap 14 (12-20); Aspartate Amino Transferase 30 U/L (5-31); Bilirubin Total 0.3 mg/dL (0.0-1.0); Blood Urea Nitrogen 34 mg/dL (9-16); Calcium 9.3 mg/dL (8.4-10.2); Carbon Dioxide 16 mmol/L (22-29); Chloride 110 mmol/L (96-108); Creatinine Clr Calc Pharmacy 18.8; Estimated Glomerular Filt Rate 16; Glucose Random 149 mg/dL (60-115); Magnesium 2.1 mg/dL (1.6-2.6); Potassium 3.9 mmol/L (3.3-5.1); Sodium 136 mmol/L (135-145); Total Protein 6.6 g/dL (6.5-8.0)
--- NOTE | 2024-11-11 17:08 | PC.NURSE ---
Pt. is in room, using cellphone and no c/o pain or distress. Pt. educated to use oxygen but states I do not want to. Pt. then educated to us the call [facility]well when needing assistance or help. Pt. informed on plan of care and awaiting for admittance and bed assigment. All questions answered.
[2024-11-11 17:41] LABS: Alkaline Phosphatase 74 U/L (39-117)
[2024-11-11] MEDS: 0.9 % Sodium Chloride 1,000 ML 999 ML IV (18:39)
[2024-11-11 18:41] VITALS: BP 112/41; PULSE 61; RESP 18; O2SAT 100
[2024-11-11 19:28] VITALS: BP 114/39; PULSE 62; RESP 18; TEMP 37.1; O2SAT 99
[2024-11-11 20:13] LABS: Anion Gap 13 (12-20); Blood Urea Nitrogen 34 mg/dL (9-16); Calcium 8.6 mg/dL (8.4-10.2); Carbon Dioxide 13 mmol/L (22-29); Chloride 115 mmol/L (96-108); Creatinine Clr Calc Pharmacy 20.8; Estimated Glomerular Filt Rate 18; Glucose Random 87 mg/dL (60-115); Potassium 3.3 mmol/L (3.3-5.1); Sodium 138 mmol/L (135-145)
--- NOTE | 2024-11-11 21:02 | PM.IMHP ---
History of Present Illness Date of Service: 11/11/24 Attending physician on admission: Panchito Avendaño Chief Complaint: Constipation Pt is an 84-year-old female with a PMH significant for?CAD, HTN, CKD 3, insulin-dependent type 2 diabetes, and chronic nausea who presents to the ED with constipation for at least one week. Pt reports has been experiencing constipation for the past month or so. Contacted PCP around 10 days ago complaining of constipation and was prescribed a suppository which then worked to evacuate patient's bowels. Pt reports has not had additional bowel movement since then. Has been drinking and urinating normally, but not eating much. Has been passing gas. Denies abdominal pain. Pt has hx of chronic nausea and vomiting. Had 1 episode of vomiting yesterday that pt reports was pretty significant and severe. No other N/V. Pt denies any other significant acute medical complaints. No chest pain/pressure, palpitations. Denies fever, chills. No SOB or difficulty breathing. In the ED pt with soft BP as low as 112/41. Labs were significant for creatinine 2.85 (previous 1.95 on 10/03/2024), bicarb 13, and albumin 3.4. Otherwise grossly unremarkable and around baseline for pt. No leukocytosis. Stable H&H. Sodium and potassium WNL. Hepatic function WNL. UA not entirely consistent with acute UTI, likely contaminated. Tested negative for flu, COVID, RSV. KUB showed stool in right hemicolon, but without evidence of intestinal obstruction. Pt was treated with IVF. Pt will be admitted to the hospital for treatment and further evaluation of DINO on CKD. Review of Systems Review of Systems: Negative except for that which is stated in the [facility] Medical History (Updated 11/11/24 @ 21:37 by ELIF Sharma) CAD (coronary artery disease) GERD (gastroesophageal reflux disease) Insulin dependent type 2 diabetes mellitus Family History Mother Heart disease Hypertension Father Heart disease Hypertension Daughter Diabetes Kidney transplanted Surgical History History of knee surgery H/O repair of rotator cuff H/O aortic valve replacement Social History Alcohol intake: never Comment: Rare Patient Tobacco Use Status: Never used Tobacco Smoked in Last 30 Days: No Use of substances other than those prescribed or required for medical reasons: No Any prior treatment program specific to substance use: No Advance Directives: No Advance Directives Information Provided: Yes Do you have a plan to hurt others: No Plan Meds Allergies Allergy/AdvReac Type Severity Reaction Status Date / Time adhesive [BANDAGE,ADHESIVE] Allergy Unknown TOOK OFF Verified 11/11/24 14:31 THE SKIN empagliflozin [From Synjardy] Allergy Unknown Verified 11/11/24 14:31 levofloxacin [From LEVAQUIN] AdvReac Unknown VOMITING Verified 11/11/24 14:31 atorvastatin [From Lipitor] AdvReac Unknown Verified 11/11/24 14:31 Active Medications: Current Medications Acetaminophen (Acetaminophen 325 Mg Tablet) 650 mg PO Q6H PRN PRN Reason: Pain, Mild 1-3,fever,headache Calcium Carbonate (Calcium Carbonate 750 Mg Tab.Chew) 750 mg PO Q4H PRN PRN Reason: Heartburn Dextrose (Dextrose 50 % 25 Gm/50 Ml Syringe) 25 gm IVPUSH Q15M PRN; Protocol PRN Reason: per Hypoglycemia Standing Ord. Enoxaparin Sodium (Enoxaparin Sodium 30 Mg/0.3 Ml Syringe) 30 mg SUBCUT Q24H GERTRUDIS Glucose (Glucose Gel 15 Gm Gel..Gram.) 15 gm PO Q15M PRN; Protocol PRN Reason: per Hypoglycemia Standing Ord. Insulin Human Lispro (Insulin Lispro 100 Unit/Ml 3 Ml Vial) 0 unit SUBCUT QIDACHS GERTRUDIS; Protocol Magnesium Hydroxide (Milk Of Magnesia 30 Ml Oral.Susp) 30 ml PO DAILY PRN PRN Reason: Constipation Melatonin (Melatonin 3 Mg Tablet) 6 mg PO BEDTIME PRN PRN Reason: Insomnia Ondansetron HCl (Ondansetron Hcl 4 Mg/2 Ml Vial) 4 mg IVPUSH Q8H PRN PRN Reason: Nausea and Vomiting Sodium Chloride (0.9 % Sodium Chloride Flush 3 Ml Syringe) 3 ml IVFLUSH QSHIFT [facility] Home Medications ?Medication ?Instructions ?Recorded ?Confirmed ?Last Taken ?Type aspirin 81 mg chewable tablet 1 tab PO DAILY 05/03/24 11/11/24 11/11/24 [facility]03/24 Unknown History Verio test strips) cetirizine 10 mg tablet 10 mg PO DAILY 05/03/24 11/11/24 11/11/24 History pen needle, diabetic 32 gauge x #1,200 ea 05/03/24 Unknown History (BD Sophia 2nd Gen Pen Needle) tramadol 50 mg tablet 50 mg PO BID PRN Pain 05/03/24 11/11/24 Unknown History docusate sodium 100 mg capsule 100 - 200 mg PO DAILY 05/06/24 11/11/24 11/11/24 History omeprazole 20 mg capsule,delayed 40 mg PO BID 05/06/24 11/11/24 11/11/24 History release furosemide 20 mg tablet 20 mg PO SUTUTHFRSA 11/11/24 11/11/24 11/11/24 History insulin glargine 100 unit/mL (3 8 unit subcut BEDTIME 11/11/24 11/11/24 11/10/24 History mL) subcutaneous pen (Lantus Solostar U-100 Insulin) metoprolol succinate 50 mg 50 mg PO DAILY 11/11/24 11/11/24 Unknown History tablet,extended release 24 hr rosuvastatin 40 mg tablet 40 mg PO BEDTIME 11/11/24 11/11/24 Unknown History solifenacin 5 mg tablet 5 mg PO DAILY 11/11/24 11/11/24 11/11/24 History vitamins A,C,Y-ygbz-jihusf 2,148 2 tab PO BID 11/11/24 11/11/24 11/11/24 History mcg-113 mg-45 mg-17.4 mg tablet (PreserVision AREDS) Physical Exam Vital Signs and Narrative: Vital Signs: Last Vital Signs Temp 98.8 F 11/11/24 19:28 Pulse 62 11/11/24 19:28 Resp 18 11/11/24 19:28 BP 114/39 L 11/11/24 19:28 Pulse Ox 99 11/11/24 19:28 O2 Del Method Room Air 11/11/24 19:28 BMI result Body Mass Index 33.5 General: AOx3, no acute distress Resp: CTA bilaterally CVS: S1, S2, RRR GI: NT, no distention, soft. Bowel sounds hypoactive. Skin: Warm, dry Neuro: Cranial nerves II-XII grossly intact bilaterally. Motor grossly intact bilaterally Extremities: No edema Psych: Appropriate affect Results Labs 11/11/24 15:28 11/11/24 19:49 Labs: Laboratory Results - last 24 hr 11/11/24 11/11/24 11/11/24 14:37 15:28 15:43 MCV 90.5 MCH 30.6 MCHC 33.8 RDW 13.8 Plt Count 178 D MPV 10.4 Immature Gran % (Auto) 0.4 Neut % (Auto) 63.9 Lymph % (Auto) 25.7 Charlton % (Auto) 8.8 Eos % (Auto) 0.8 Baso % (Auto) 0.4 Lymph # (Auto) 2.2 [place] # (Auto) 0.8 Eos # (Auto) 0.1 Baso # (Auto) 0.0 Abs Immat Gran (auto) 0.03 Absolute Neuts (auto) 5.4 Absolute Nucleated RBC 0.000 Nucleated RBC % (auto) 0.0 Anion Gap 14 Estim Creat Clear Calc 18.8 Estimated GFR 16 Random Glucose 149 H Calcium 9.3 Magnesium 2.1 Total Bilirubin 0.3 AST 30 ALT 10 Alkaline Phosphatase 74 Total Protein 6.6 Albumin 3.4 L Urine Color Yellow Urine Appearance Turbid Urine pH 5.0 Ur Specific [place]opold 1.020 Urine Protein 100 (2+) H Urine Glucose (UA) >=1000 H Urine Ketones Negative Urine Blood Small (1+) H Urine Nitrite Negative Ur Leukocyte Esterase Moderate (2+) H Urine RBC 0-2 Urine WBC 6-10 Ur Squamous Epith Cells 3-5 Urine Bacteria None Seen Hyaline Casts 6-10 Granular Casts Present Influenza Type A (PCR) NEGATIVE Influenza Type B (PCR) NEGATIVE RSV RNA Qual (PCR) NEGATIVE SARS-CoV-2 RNA (RT-PCR) NEGATIVE 11/11/24 19:49 MCV MCH MCHC RDW Plt Count MPV Immature Gran % (Auto) Neut % (Auto) Lymph % (Auto) [place] % (Auto) Eos % (Auto) Baso % (Auto) Lymph # (Auto) [place] # (Auto) Eos # (Auto) Baso # (Auto) Abs Immat Gran (auto) Absolute Neuts (auto) Absolute Nucleated RBC Nucleated RBC % (auto) Anion Gap 13 Estim Creat Clear Calc 20.8 Estimated GFR 18 Random Glucose 87 Calcium 8.6 D Magnesium Total Bilirubin AST ALT Alkaline Phosphatase Total Protein Albumin Urine Color Urine Appearance Urine pH Ur Specific [place] Urine Protein Urine Glucose (UA) Urine Ketones Urine Blood Urine Nitrite Ur Leukocyte Esterase Urine RBC Urine WBC Ur Squamous Epith Cells Urine Bacteria Hyaline Casts Granular Casts Influenza Type A (PCR) Influenza Type B (PCR) RSV RNA Qual (PCR) SARS-CoV-2 RNA (RT-PCR) Imaging Radiologist's Impressions: Impressions KUB X-Ray 11/11/24 14:58 IMPRESSION: No intestinal obstruction pattern. Electronically signed by: Marvel Ayala MD 11/11/2024 03:06 PM EDT RP Assessment and Plan (1) DINO (acute kidney injury): Status: Acute Plan Pt is an 84-year-old female with a PMH significant for?CAD, HTN, CKD 3, insulin-dependent type 2 diabetes, and chronic nausea who presents to the ED with constipation for at least one week. Pt will be admitted to the hospital for treatment and further evaluation of DINO on CKD. DINO on CKD Initial creatinine 2.85, previous 1.95 Possibly secondary to hypovolemia from reduced p.o. intake and prolonged episode of N/V yesterday while continuing diuretic use Pt received 1 L IVF in the ED Will place on maintenance fluids x1 L Hold spironolactone and Lasix Nephrology consult Follow renal function Metabolic acidosis Patient's bicarb as low as 13 We will give sodium bicarbonate 650 p.o. x1 Check VBG in the morning Constipation Uncertain when last bowel movement was, likely around 1 week ago KUB without significant stool burden, negative for bowel obstruction Continue Colace 100 mg b.i.d. Dulcolax 10 mg x1 Lactulose p.r.n. CAD Continue aspirin and statin HLD Continue statin Insulin-dependent type 2 diabetes Sliding-scale insulin, Lantus Diabetic diet GERD Continue PPI Full Code Attending:?Dr. Avendaño DVT Prophylaxis: Lovenox Pt will require a hospitalization of at least two nights for treatment of?DINO on CKD that will require administration of IVF, close monitoring of labs, and specialist consultation with Nephrology. Quality Stroke Does the patient have a stroke diagnosis?: No VTE Prior VTE?: No VTE Risk Level:: Medical - moderate - high VTE Device Contraindication: Treatment Not Indicated VTE Drug Contraindication: N/A - Med Ordered
[2024-11-11 21:09] VITALS: BP 116/49; PULSE 61; RESP 18; TEMP 36.7
--- NOTE | 2024-11-11 21:28 | PHA.MEDREC ---
Addendum entered by Indra Mcneill [facility] 11/11/24 21:57: med rec reviewed Original Note: Pharmacy Consult ? Medication Reconciliation Pharmacy has completed the medication reconciliation. Spoke to patient to confirm med list. Patient states she is no longer taking Calcium 500-Vitamin 400 mg, Flonase, Foloc acid 1 mg, Garlic 1250 mg, Glucosam-condroitin, Lactulose 10 gm/15 solution, Metformin 500 mg, Multivitamin, Sodium bicarbonate 650 mg, Vitamin C 250 mg and Vitamin E 400 mg. Patient confirmed Lantus solostar 8 units at bedtime, Furosamide is every Thursday, , Thursday, Thursday and Thursday
[2024-11-11 21:42] LABS: Glucose, Whole Blood 82 mg/dL (60-115)
[2024-11-11] MEDS: bisacodyL 5 MG TABLET.DR 10 MG PO (22:29)
[2024-11-11] MEDS: Docusate Sodium 100 MG CAPSULE PO (22:30)
[2024-11-11] MEDS: Enoxaparin Sodium 30 MG/0.3 ML SYRINGE SUBCUT (22:30)
[2024-11-11] MEDS: Sodium Bicarbonate 650 MG TABLET PO (22:30)
[2024-11-11] MEDS: Lactated Ringers 1,000 ML 100 ML IVCONT (22:38)
[2024-11-12] VITALS (8 sets, daily range): BP systolic 95–143; BP diastolic 31–74; PULSE 59–78; RESP 16–20; TEMP 36.7–37.2; O2SAT 97–99; BMI 29.6
--- NOTE | 2024-11-12 00:25 | PC.NURSE ---
Report to KARSTEN Maya.
--- NOTE | 2024-11-12 00:38 | PC.NURSE ---
This marketing writer assumed care of this Pt at this time.
--- NOTE | 2024-11-12 05:08 | PC.NURSE ---
Pt A&Ox3, ambulated to BR independently with steady gait. Pt given pillow for repositioning.
[2024-11-12 06:03] LABS: MANUAL DIFF FLAG NO
[2024-11-12 06:05] LABS: Basophils Percent Auto 0.4 % (0-2); Eosinophils Absolute Auto 0.1 X10*3/uL (0.0-0.4); Eosinophils Percent Auto 1.1 % (0-4); Hematocrit 33.3 % (37.0-47.0); Imm Gran Abs Auto 0.02 X10*3/uL (0.00-0.03); Imm Gran Pct Auto 0.3 % (0.0-0.4); Lymphocytes Absolute Auto 2.3 X10*3/uL (1.2-4.9); Lymphocytes Percent Auto 29.9 % (20-40); Mean Corpuscular Hemoglobin 30.5 pg (27.0-33.0); Mean Corpuscular Volume 92.2 fL (80.0-98.0); Monocytes Absolute Auto 0.8 X10*3/uL (0.1-1.2); Monocytes Percent Auto 10.2 % (2-11); Neutrophils Absolute Auto 4.4 x10*3/uL (2.0-8.3); Neutrophils Percent Auto 58.1 % (45-73); Platelet Count 147 X10*3/uL (160-400); Red Blood Count 3.61 X10*6/uL (4.20-5.50); Red Cell Distribution Width 13.8 % (11.0-16.0); White Blood Count 7.6 X10*3/uL (4.8-10.8)
[2024-11-12 06:13] LABS: VBG Base Excess -10.4 mmol/L; VBG HCO3 14 mmol/L (22-26); VBG pCO2 30 mmHg; VBG pH 7.28 (7.32-7.43); VBG pO2 35 mmHg
[2024-11-12 06:15] LABS: Venous Blood Gas Refer to POC result
[2024-11-12 06:20] LABS: Anion Gap 12 (12-20); Blood Urea Nitrogen 31 mg/dL (9-16); Calcium 8.7 mg/dL (8.4-10.2); Carbon Dioxide 15 mmol/L (22-29); Chloride 117 mmol/L (96-108); Creatinine Clr Calc Pharmacy 20.3; Estimated Glomerular Filt Rate 17; Glucose Random 77 mg/dL (60-115); Potassium 3.5 mmol/L (3.3-5.1); Sodium 140 mmol/L (135-145)
[2024-11-12] MEDS: Omeprazole 40 MG CAPSULE.DR PO ×2 (06:51→16:32)
[2024-11-12 07:35] LABS: Glucose, Whole Blood 59 mg/dL (60-115)
[2024-11-12] MEDS: Docusate Sodium 100 MG CAPSULE PO (07:39)
[2024-11-12] MEDS: Aspirin 81 MG TAB.CHEW PO (07:40)
[2024-11-12] MEDS: Multivitamin TABLET 1 TAB PO (07:40)
[2024-11-12] MEDS: Loratadine 10 MG TABLET PO (07:40)
--- NOTE | 2024-11-12 08:30 | PC.NURSE ---
patient a&ox3, rr equal/non labored- lungs clear throughout, pts bp was soft- held metoprolol this am, additionally pts POC was 59- held insulin and holding jardiance until after pt eats breakfast and repeat poc is obtained, hospitalist Amara notified. IVF running until completion and will be stopped as order was not renewed. Call boswell within reach, plan of care ongoing.
--- NOTE | 2024-11-12 08:33 | MHC.EDTECH ---
pt ambulated to the bathroom, had a BM.
[2024-11-12 08:34] LABS: Glucose, Whole Blood 94 mg/dL (60-115)
--- NOTE | 2024-11-12 11:53 | P.PNIM_ITS ---
Subjective Subjective Date of Service: 11/12/24 Interval History: seen and examined this morning follow up for DINO, generalized weakness At this time denies nausea, vomiting, abdominal pain. Review of Systems Review of Systems: Yes all other systems are reviewed and are negative Constitutional Constitutional: Denies chills and Denies fever(s) Cardiovascular Cardiovascular: Denies chest pain, Denies palpitations and Denies dyspnea Respiratory Respiratory: Denies cough and Denies dyspnea Gastrointestinal Gastrointestinal: Denies abdominal pain, Denies diarrhea, Denies nausea and Denies vomiting Endocrine Endocrine: Denies palpitations Physical Exam 2 Vital Signs: Vital Signs: Last Vital Signs Temp 98.0 F 11/12/24 08:28 Pulse 66 11/12/24 08:28 Resp 16 11/12/24 08:28 BP 117/38 L 11/12/24 08:28 Pulse Ox 98 11/12/24 08:28 O2 Del Method Room Air 11/12/24 08:28 BMI result Body Mass Index 33.5 Const: General: cooperative, comfortable, no acute distress, alert and awake Nutritional Appearance: overweight Orientation/consciousness: patient oriented x3 Resp: Effort & Inspection: normal respiratory effort, able to speak in complete sentences, no respiratory distress and no use of accessory muscles Cardio: Rate: regular rate GI: Inspection: No distended Palpation (GI): Soft to palpation and nontender Neuro: General: patient oriented x3, moves all extremities and CN's II-XI intact bilaterally Extrem: General: Yes no pedal edema Objective Data Active Medications Acetaminophen (Acetaminophen 325 Mg Tablet) 650 mg PO Q6H PRN PRN Reason: Pain, Mild 1-3,fever,headache Aspirin (Aspirin 81 Mg Tab.Chew) 81 mg PO DAILY [facility] Last Admin: 11/12/24 07:40 Dose: 81 mg Documented By: TAHIR Calcium Carbonate (Calcium Carbonate 750 Mg Tab.Chew) 750 mg PO Q4H PRN PRN Reason: Heartburn Dextrose (Dextrose 50 % 25 Gm/50 Ml Syringe) 25 gm IVPUSH Q15M PRN; Protocol PRN Reason: per Hypoglycemia Standing Ord. Docusate Sodium (Docusate Sodium 100 Mg Capsule) 100 mg PO BID [facility] Last Admin: 11/12/24 07:39 Dose: 100 mg Documented By: TAHIR Enoxaparin Sodium (Enoxaparin Sodium 30 Mg/0.3 Ml Syringe) 30 mg SUBCUT Q24H [facility] Last Admin: 11/11/24 22:30 Dose: 30 mg Documented By: BINDU Glucose (Glucose Gel 15 Gm Gel..Gram.) 15 gm PO Q15M PRN; Protocol PRN Reason: per Hypoglycemia Standing Ord. Insulin Glargine (Insulin Glargine,Hum.Rec.Anlog 100 Unit/Ml 10 Ml Vial) 6 unit SUBCUT BEDTIME [facility] Last Admin: 11/11/24 22:30 Dose: Not Given Documented By: BNIDU Non-Admin Reason: Patient Refused Insulin Human Lispro (Insulin Lispro 100 Unit/Ml 3 Ml Vial) 0 unit SUBCUT QIDACHS [facility]; Protocol Last Admin: 11/12/24 07:39 Dose: Not Given Documented By: TAHIR Non-Admin Reason: No Insulin Coverage Lactulose (Lactulose 20 Gm/30 Ml Solution) 30 gm PO DAILY PRN PRN Reason: Constipation Loratadine (Loratadine 10 Mg Tablet) 10 mg PO DAILY [facility] Last Admin: 11/12/24 07:40 Dose: 10 mg Documented By: TAHIR Magnesium Hydroxide (Milk Of Magnesia 30 Ml Oral.Susp) 30 ml PO DAILY PRN PRN Reason: Constipation Melatonin (Melatonin 3 Mg Tablet) 6 mg PO BEDTIME PRN PRN Reason: Insomnia Metoprolol Succinate (Metoprolol Succinate Er 50 Mg Tab.Er.24h) 50 mg PO DAILY [facility]; Protocol Last Admin: 11/12/24 07:40 Dose: Not Given Documented By: TAHIR Non-Admin Reason: See Note Multivitamins/Vitamin C (Multivitamin Tablet) 1 tab PO DAILY [facility] Last Admin: 11/12/24 07:40 Dose: 1 tab Documented By: TAHIR Omeprazole (Omeprazole 40 Mg Capsule.Dr) 40 mg PO BID@0630,1630 [facility] Last Admin: 11/12/24 06:51 Dose: 40 mg Documented By: MANNY Ondansetron HCl (Ondansetron Hcl 4 Mg/2 Ml Vial) 4 mg IVPUSH Q8H PRN PRN Reason: Nausea and Vomiting Sodium Chloride (0.9 % Sodium Chloride Flush 3 Ml Syringe) 3 ml IVFLUSH QSHIFT [facility] Last Admin: 11/12/24 07:18 Dose: Not Given Documented By: TAHIR Non-Admin Reason: IV Running Tramadol HCl (Tramadol Hcl 50 Mg Tablet) 50 mg PO BID PRN PRN Reason: Pain, Moderate(Pain Scale 4-6) Labs 11/12/24 05:55 11/12/24 05:55 Labs: Laboratory Results - last 24 hr 11/11/24 11/11/24 11/11/24 14:37 15:28 15:43 MCV 90.5 MCH 30.6 MCHC 33.8 RDW 13.8 Plt Count 178 D MPV 10.4 Immature Gran % (Auto) 0.4 Neut % (Auto) 63.9 Lymph % (Auto) 25.7 [place]flower % (Auto) 8.8 Eos % (Auto) 0.8 Baso % (Auto) 0.4 Lymph # (Auto) 2.2 Sunflower # (Auto) 0.8 Eos # (Auto) 0.1 Baso # (Auto) 0.0 Abs Immat Gran (auto) 0.03 Absolute Neuts (auto) 5.4 Absolute Nucleated RBC 0.000 Nucleated RBC % (auto) 0.0 VBG pH VBG pCO2 VBG pO2 VBG HCO3 VBG O2 Saturation VBG Base Excess Anion Gap 14 Estim Creat Clear Calc 18.8 Estimated GFR 16 POC Glucose Random Glucose 149 H Calcium 9.3 Magnesium 2.1 Total Bilirubin 0.3 AST 30 ALT 10 Alkaline Phosphatase 74 Total Protein 6.6 Albumin 3.4 L Urine Color Yellow Urine Appearance Turbid Urine pH 5.0 Ur Specific [place] 1.020 Urine Protein 100 (2+) H Urine Glucose (UA) >=1000 H Urine Ketones Negative Urine Blood Small (1+) H Urine Nitrite Negative Ur Leukocyte Esterase Moderate (2+) H Urine RBC 0-2 Urine WBC 6-10 Ur Squamous Epith Cells 3-5 Urine Bacteria None Seen Hyaline Casts 6-10 Granular Casts Present Influenza Type A (PCR) NEGATIVE Influenza Type B (PCR) NEGATIVE RSV RNA Qual (PCR) NEGATIVE SARS-CoV-2 RNA (RT-PCR) NEGATIVE 11/11/24 11/11/24 11/12/24 19:49 21:33 05:55 MCV 92.2 MCH 30.5 MCHC 33.0 RDW 13.8 Plt Count 147 L MPV 10.0 Immature Gran % (Auto) 0.3 Neut % (Auto) 58.1 Lymph % (Auto) 29.9 Sunflower % (Auto) 10.2 Eos % (Auto) 1.1 Baso % (Auto) 0.4 Lymph # (Auto) 2.3 Sunflower # (Auto) 0.8 Eos # (Auto) 0.1 Baso # (Auto) 0.0 Abs Immat Gran (auto) 0.02 Absolute Neuts (auto) 4.4 Absolute Nucleated RBC 0.000 Nucleated RBC % (auto) 0.0 VBG pH VBG pCO2 VBG pO2 VBG HCO3 VBG O2 Saturation VBG Base Excess Anion Gap 13 12 Estim Creat Clear Calc 20.8 20.3 Estimated GFR 18 17 POC Glucose 82 Random Glucose 87 77 Calcium 8.6 D 8.7 Magnesium Total Bilirubin AST ALT Alkaline Phosphatase Total Protein Albumin Urine Color Urine Appearance Urine pH Ur Specific [place] Urine Protein Urine Glucose (UA) Urine Ketones Urine Blood Urine Nitrite Ur Leukocyte Esterase Urine RBC Urine WBC Ur Squamous Epith Cells Urine Bacteria Hyaline Casts Granular Casts Influenza Type A (PCR) Influenza Type B (PCR) RSV RNA Qual (PCR) SARS-CoV-2 RNA (RT-PCR) 11/12/24 11/12/24 11/12/24 06:08 07:22 08:29 MCV MCH MCHC RDW Plt Count MPV Immature Gran % (Auto) Neut % (Auto) Lymph % (Auto) Sunflower % (Auto) Eos % (Auto) Baso % (Auto) Lymph # (Auto) Sunflower # (Auto) Eos # (Auto) Baso # (Auto) Abs Immat Gran (auto) Absolute Neuts (auto) Absolute Nucleated RBC Nucleated RBC % (auto) VBG pH 7.28 L VBG pCO2 30 VBG pO2 35 VBG HCO3 14 L VBG O2 Saturation 52.0 VBG Base Excess -10.4 Anion Gap Estim Creat Clear Calc Estimated GFR POC Glucose 59 L* 94 Random Glucose Calcium Magnesium Total Bilirubin AST ALT Alkaline Phosphatase Total Protein Albumin Urine Color Urine Appearance Urine pH Ur Specific [place] Urine Protein Urine Glucose (UA) Urine Ketones Urine Blood Urine Nitrite Ur Leukocyte Esterase Urine RBC Urine WBC Ur Squamous Epith Cells Urine Bacteria Hyaline Casts Granular Casts Influenza Type A (PCR) Influenza Type B (PCR) RSV RNA Qual (PCR) SARS-CoV-2 RNA (RT-PCR) Assessment and Plan (1) DINO (acute kidney injury): Status: Acute (2) Metabolic acidosis: Status: Acute Plan This is an 84-year-old female with a PMH significant for?CAD, HTN, CKD 3, insulin-dependent type 2 diabetes, and chronic nausea who presents to the ED with constipation for at least one week. Pt will be admitted to the hospital for treatment and further evaluation of DINO on CKD. DINO on CKD3 ?due to hypovolemia from reduced p.o. intake & GI losses with diuretic use Hold spironolactone and Lasix Nephrology consult pending Follow renal function Acute on chronic NAG Metabolic acidosis likely due to above start po sodium bicarb nephrology consult pending follow BMP Constipation Uncertain when last bowel movement was, likely around 1 week ago KUB without significant stool burden, negative for bowel obstruction. abdominal exam benign bowel bowel regimen CAD Continue aspirin, BB statin on hold for dino HLD statin on hold Insulin-dependent type 2 diabetes episode of hypoglycemia likely due to decreased po intake and DINO stop Lantus jardiance on hold Sliding-scale insulin Diabetic diet GERD Continue PPI Full Code DVT Prophylaxis: Lovenox Pt will require a hospitalization of at least two nights for treatment of?DINO on CKD that will require administration of IVF, close monitoring of labs, and specialist consultation with Nephrology. Quality Stroke Does the patient have a stroke diagnosis?: No VTE Prior VTE?: No VTE Risk Level:: Medical - moderate - high VTE Device Contraindication: Treatment Not Indicated VTE Drug Contraindication: N/A - Med Ordered
[2024-11-12 11:58] LABS: Glucose, Whole Blood 105 mg/dL (60-115)
--- NOTE | 2024-11-12 12:30 | PC.NURSE ---
patient a&ox3, ambulatory with assist to the bathroom, pt has no c/o pain/discomfort, poc obtained, call boswell within reach, plan of care ongoing.
[2024-11-12] MEDS: Sodium Bicarbonate 650 MG TABLET PO ×2 (13:28→20:41)
[2024-11-12] MEDS: Lactated Ringers 1,000 ML 80 ML IVCONT (13:29)
[2024-11-12 16:53] LABS: Glucose, Whole Blood 127 mg/dL (60-115)
[2024-11-12 20:35] LABS: Glucose, Whole Blood 168 mg/dL (60-115)
[2024-11-12] MEDS: Enoxaparin Sodium 30 MG/0.3 ML SYRINGE SUBCUT (20:41)
[2024-11-12] MEDS: 0.9 % Sodium Chloride Flush 3 ML SYRINGE IVFLUSH (21:40)
[2024-11-13 02:46] VITALS: RESP 16
[2024-11-13 03:53] VITALS: BP 109/53; PULSE 62; RESP 16; TEMP 36.3; O2SAT 99
[2024-11-13] MEDS: Omeprazole 40 MG CAPSULE.DR PO ×2 (06:02→16:32)
[2024-11-13 07:12] VITALS: BP 113/57; PULSE 70; RESP 14; TEMP 36.1; O2SAT 98
[2024-11-13 07:17] LABS: Anion Gap 11 (12-20); Blood Urea Nitrogen 26 mg/dL (9-16); Calcium 8.5 mg/dL (8.4-10.2); Carbon Dioxide 16 mmol/L (22-29); Chloride 117 mmol/L (96-108); Creatinine Clr Calc Pharmacy 22.2; Estimated Glomerular Filt Rate 21; Glucose Random 100 mg/dL (60-115); Potassium 2.8 mmol/L (3.3-5.1); Sodium 141 mmol/L (135-145)
[2024-11-13 07:33] LABS: Magnesium 1.8 mg/dL (1.6-2.6)
[2024-11-13] MEDS: Loratadine 10 MG TABLET PO (07:39)
[2024-11-13 07:40] LABS: Glucose, Whole Blood 112 mg/dL (60-115)
[2024-11-13] MEDS: Potassium Chloride Packet 20 MEQ PACKET 40 MEQ PO (07:40)
[2024-11-13] MEDS: Aspirin 81 MG TAB.CHEW PO (07:40)
[2024-11-13] MEDS: Sodium Bicarbonate 650 MG TABLET PO ×2 (07:40→20:28)
[2024-11-13] MEDS: Docusate Sodium 100 MG CAPSULE PO ×2 (07:41→20:28)
[2024-11-13] MEDS: Potassium Chloride/H20 10 MEQ/100 ML PIGGYBACK 100 MEQ IV (07:41)
[2024-11-13] MEDS: Metoprolol Succinate ER 50 MG TAB.ER.24H PO (07:44)
[2024-11-13] MEDS: 0.9 % Sodium Chloride Flush 3 ML SYRINGE IVFLUSH (07:50)
--- NOTE | 2024-11-13 08:17 | MHC.CM.PN ---
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
[2024-11-13 09:30] LABS: Beta-Hydroxybutyrate 0.52 mmol/L (0.02-0.27)
[2024-11-13] MEDS: Lactated Ringers 1,000 ML 75 ML IVCONT (11:12)
[2024-11-13 11:24] LABS: Glucose, Whole Blood 158 mg/dL (60-115)
[2024-11-13] MEDS: Insulin Lispro 100 UNIT/ML 3 ML VIAL SUBCUT ×3 (11:33→20:37)
--- NOTE | 2024-11-13 14:11 | P.PNIM_ITS ---
Subjective Subjective Date of Service: 11/13/24 Interval History: Seen and examined this morning Follow-up for generalized weakness, renal failure, metabolic acidosis No overnight events Feeling well this morning. no abdominal pain, nausea, vomiting, diarrhea Review of Systems Review of Systems: Yes all other systems are reviewed and are negative Constitutional Constitutional: Denies chills and Denies fever(s) Cardiovascular Cardiovascular: Denies chest pain and Denies palpitations Endocrine Endocrine: Denies palpitations Physical Exam 2 Vital Signs: Vital Signs: Last Vital Signs Temp 97.0 F 11/13/24 07:12 Pulse 70 11/13/24 07:12 Resp 14 11/13/24 07:12 BP 113/57 L 11/13/24 07:12 Pulse Ox 98 11/13/24 07:12 O2 Del Method Room Air 11/13/24 07:12 BMI result Body Mass Index 29.6 Const: General: cooperative, comfortable, no acute distress, alert and awake Nutritional Appearance: overweight Orientation/consciousness: patient oriented x3 Resp: Effort & Inspection: normal respiratory effort, able to speak in complete sentences, no respiratory distress and no use of accessory muscles Cardio: Rate: regular rate GI: Inspection: No distended Palpation (GI): Soft to palpation and nontender Neuro: General: patient oriented x3, moves all extremities and CN's II-XI intact bilaterally Extrem: General: Yes no pedal edema Objective Data Active Medications Acetaminophen (Acetaminophen 325 Mg Tablet) 650 mg PO Q6H PRN PRN Reason: Pain, Mild 1-3,fever,headache Aspirin (Aspirin 81 Mg Tab.Chew) 81 mg PO DAILY [facility] Last Admin: 11/13/24 07:40 Dose: 81 mg Documented By: BSII Calcium Carbonate (Calcium Carbonate 750 Mg Tab.Chew) 750 mg PO Q4H PRN PRN Reason: Heartburn Dextrose (Dextrose 50 % 25 Gm/50 Ml Syringe) 25 gm IVPUSH Q15M PRN; Protocol PRN Reason: per Hypoglycemia Standing Ord. Docusate Sodium (Docusate Sodium 100 Mg Capsule) 100 mg PO BID [facility] Last Admin: 11/13/24 07:41 Dose: 100 mg Documented By: BISI Enoxaparin Sodium (Enoxaparin Sodium 30 Mg/0.3 Ml Syringe) 30 mg SUBCUT Q24H [facility] Last Admin: 11/12/24 20:41 Dose: 30 mg Documented By: RANDA Glucose (Glucose Gel 15 Gm Gel..Gram.) 15 gm PO Q15M PRN; Protocol PRN Reason: per Hypoglycemia Standing Ord. Lactated Ringer's (Lr) 1,000 mls @ 75 mls/hr IVCONT .[id number] [facility] Last Admin: 11/13/24 11:12 Dose: 75 mls/hr Documented By: BISI Insulin Human Lispro (Insulin Lispro 100 Unit/Ml 3 Ml Vial) 0 unit SUBCUT QIDACHS [facility]; Protocol Last Admin: 11/13/24 11:33 Dose: 2 unit Documented By: BISI Lactulose (Lactulose 20 Gm/30 Ml Solution) 30 gm PO DAILY PRN PRN Reason: Constipation Loratadine (Loratadine 10 Mg Tablet) 10 mg PO DAILY [facility] Last Admin: 11/13/24 07:39 Dose: 10 mg Documented By: BISI Magnesium Hydroxide (Milk Of Magnesia 30 Ml Oral.Susp) 30 ml PO DAILY PRN PRN Reason: Constipation Melatonin (Melatonin 3 Mg Tablet) 6 mg PO BEDTIME PRN PRN Reason: Insomnia Metoprolol Succinate (Metoprolol Succinate Er 50 Mg Tab.Er.24h) 50 mg PO DAILY [facility]; Protocol Last Admin: 11/13/24 07:44 Dose: 50 mg Documented By: BISI Multivitamins/Vitamin C (Multivitamin Tablet) 1 tab PO DAILY [facility] Last Admin: 11/13/24 07:45 Dose: Not Given Documented By: BISI Non-Admin Reason: Patient Refused Omeprazole (Omeprazole 40 Mg ) 40 mg PO BID@0630,1630 [facility] Last Admin: 11/13/24 06:02 Dose: 40 mg Documented By: CAYDEN Ondansetron HCl (Ondansetron Hcl 4 Mg/2 Ml Vial) 4 mg IVPUSH Q8H PRN PRN Reason: Nausea and Vomiting Polyethylene Glycol (Polyethylene Glycol 3350 17 Gm Powd.Pack) 17 gm PO DAILY [facility] Last Admin: 11/13/24 07:42 Dose: Not Given Documented By: BISI Non-Admin Reason: Patient Refused Sodium Bicarbonate (Sodium Bicarbonate 650 Mg Tablet) 650 mg PO BID [facility] Last Admin: 11/13/24 07:40 Dose: 650 mg Documented By: BISI Sodium Chloride (0.9 % Sodium Chloride Flush 3 Ml Syringe) 3 ml IVFLUSH QSHIFT [facility] Last Admin: 11/13/24 07:50 Dose: 3 ml Documented By: BISI Tramadol HCl (Tramadol Hcl 50 Mg Tablet) 50 mg PO BID PRN PRN Reason: Pain, Moderate(Pain Scale 4-6) Labs 11/12/24 05:55 11/13/24 05:57 Labs: Laboratory Results - last 24 hr 11/12/24 11/12/24 11/13/24 16:34 20:31 05:57 Anion Gap 11 L Estim Creat Clear Calc 22.2 Estimated GFR 21 POC Glucose 127 H 168 H Random Glucose 100 Calcium 8.5 Magnesium 1.8 Beta-Hydroxybutyrate 0.52 H 11/13/24 11/13/24 07:18 11:16 Anion Gap Estim Creat Clear Calc Estimated GFR POC Glucose 112 158 H Random Glucose Calcium Magnesium Beta-Hydroxybutyrate Microbiology Microbiology Results: Microbiology 11/11/24 Unknown Urine Culture - Final Urine clean catch - Clean Catch Midstream No growth. Assessment and Plan (1) Constipation: Status: Acute (2) Metabolic acidosis: Status: Acute (3) DINO (acute kidney injury): Status: Acute Plan This is an 84-year-old female with a PMH significant for?CAD, HTN, CKD 3, insulin-dependent type 2 diabetes, and chronic nausea who presents to the ED with constipation for at least one week. Pt will be admitted to the hospital for treatment and further evaluation of DINO on CKD. DINO on CKD3. creatinine improved a little with IVF ?due to hypovolemia from reduced p.o. intake & GI losses with diuretic use Hold spironolactone and Lasix Nephrology consult pending Follow renal function Continue IV fluid Acute on chronic hyperchloremic Metabolic acidosis, Non anion gap ? due to above dino continue po sodium bicarb 650 bid nephrology consult pending follow BMP Beta hydroxybutyrate low Constipation KUB without significant stool burden, negative for bowel obstruction abdominal exam benign bowel bowel regimen CAD Continue aspirin, BB statin on hold for dino HLD statin on hold Insulin-dependent type 2 diabetes episode of hypoglycemia 11/12, no further episodes likely due to decreased po intake and DINO On low-dose Lantus at baseline, will hold for now jardiance on hold Sliding-scale insulin Diabetic diet GERD Continue PPI Full Code DVT Prophylaxis: Lovenox Pt will require a hospitalization of at least two nights for treatment of?DINO on CKD that will require administration of IVF, close monitoring of labs, and specialist consultation with Nephrology. Quality Stroke Does the patient have a stroke diagnosis?: No VTE Prior VTE?: No VTE Risk Level:: Medical - moderate - high VTE Device Contraindication: Treatment Not Indicated VTE Drug Contraindication: N/A - Med Ordered
[2024-11-13 15:18] VITALS: BP 116/60; PULSE 75; RESP 17; TEMP 36.8; O2SAT 96
[2024-11-13 16:15] LABS: Glucose, Whole Blood 184 mg/dL (60-115)
[2024-11-13 19:17] VITALS: BP 114/60; PULSE 75; RESP 17; TEMP 36.6; O2SAT 97
[2024-11-13 19:43] LABS: Glucose, Whole Blood 155 mg/dL (60-115)
[2024-11-13] MEDS: Enoxaparin Sodium 30 MG/0.3 ML SYRINGE SUBCUT (20:28)
[2024-11-13] MEDS: Melatonin 3 MG TABLET 6 MG PO (23:43)
[2024-11-14 00:05] VITALS: RESP 16
[2024-11-14] MEDS: Lactated Ringers 1,000 ML 75 ML IVCONT ×2 (00:52→14:40)
[2024-11-14 03:48] VITALS: BP 92/49; PULSE 78; RESP 16; TEMP 36.1; O2SAT 97
[2024-11-14 05:08] VITALS: BP 103/53; PULSE 76
[2024-11-14] MEDS: Omeprazole 40 MG CAPSULE.DR PO ×2 (05:08→17:08)
[2024-11-14 07:20] LABS: Anion Gap 9 (12-20); Blood Urea Nitrogen 23 mg/dL (9-16); Calcium 8.4 mg/dL (8.4-10.2); Carbon Dioxide 17 mmol/L (22-29); Chloride 118 mmol/L (96-108); Creatinine Clr Calc Pharmacy 24.9; Estimated Glomerular Filt Rate 24; Glucose Random 119 mg/dL (60-115); Potassium 3.3 mmol/L (3.3-5.1); Sodium 141 mmol/L (135-145)
[2024-11-14 07:41] LABS: Glucose, Whole Blood 129 mg/dL (60-115)
[2024-11-14 07:58] VITALS: BP 107/53; PULSE 62; RESP 16; TEMP 36.9; O2SAT 99
[2024-11-14] MEDS: Docusate Sodium 100 MG CAPSULE PO ×2 (08:51→20:04)
[2024-11-14] MEDS: Aspirin 81 MG TAB.CHEW PO (08:51)
[2024-11-14] MEDS: Sodium Bicarbonate 650 MG TABLET PO ×2 (08:51→20:04)
[2024-11-14] MEDS: Loratadine 10 MG TABLET PO (08:52)
[2024-11-14] MEDS: polyethylene glycoL 3350 17 GM POWD.PACK PO (08:53)
--- NOTE | 2024-11-14 09:02 | PC.NURSE ---
recommended to hold the Metoprolol XL d/t soft bp
--- NOTE | 2024-11-14 09:19 | P.PNIM_ITS ---
Subjective Subjective Date of Service: 11/14/24 Interval History: Seen and examined this morning Follow-up for generalized weakness, renal failure, metabolic acidosis No overnight events Feeling well this morning. no abdominal pain, nausea, vomiting, diarrhea Review of Systems Review of Systems: Yes all other systems are reviewed and are negative Constitutional Constitutional: Denies chills and Denies fever(s) Cardiovascular Cardiovascular: Denies chest pain and Denies palpitations Endocrine Endocrine: Denies palpitations Physical Exam 2 Vital Signs: Vital Signs: Last Vital Signs Temp 98.5 F 11/14/24 07:58 Pulse 62 11/14/24 07:58 Resp 16 11/14/24 07:58 BP 107/53 L 11/14/24 07:58 Pulse Ox 99 11/14/24 07:58 O2 Del Method Room Air 11/14/24 07:58 BMI result Body Mass Index 29.6 Appearing in no acute distress lung sounds are clear to auscultation heart regular rate rhythm, clear S1, S2 positive bowel sounds, abdomen is soft, nontender neuro patient is alert x3, no focal deficits Objective Data Active Medications Acetaminophen (Acetaminophen 325 Mg Tablet) 650 mg PO Q6H PRN PRN Reason: Pain, Mild 1-3,fever,headache Aspirin (Aspirin 81 Mg Tab.Chew) 81 mg PO DAILY [facility] Last Admin: 11/14/24 08:51 Dose: 81 mg Documented By: HAILY Calcium Carbonate (Calcium Carbonate 750 Mg Tab.Chew) 750 mg PO Q4H PRN PRN Reason: Heartburn Dextrose (Dextrose 50 % 25 Gm/50 Ml Syringe) 25 gm IVPUSH Q15M PRN; Protocol PRN Reason: per Hypoglycemia Standing Ord. Docusate Sodium (Docusate Sodium 100 Mg Capsule) 100 mg PO BID [facility] Last Admin: 11/14/24 08:51 Dose: 100 mg Documented By: HAILY Enoxaparin Sodium (Enoxaparin Sodium 30 Mg/0.3 Ml Syringe) 30 mg SUBCUT Q24H [facility] Last Admin: 11/13/24 20:28 Dose: 30 mg Documented By: BIRDIE Glucose (Glucose Gel 15 Gm Gel..Gram.) 15 gm PO Q15M PRN; Protocol PRN Reason: per Hypoglycemia Standing Ord. Lactated Ringer's (Lr) 1,000 mls @ 75 mls/hr IVCONT .[id number] [facility] Last Admin: 11/14/24 00:52 Dose: 75 mls/hr Documented By: USHA Insulin Human Lispro (Insulin Lispro 100 Unit/Ml 3 Ml Vial) 0 unit SUBCUT QIDACHS [facility]; Protocol Last Admin: 11/14/24 07:35 Dose: Not Given Documented By: HAILY Non-Admin Reason: No Insulin Coverage Lactulose (Lactulose 20 Gm/30 Ml Solution) 30 gm PO DAILY PRN PRN Reason: Constipation Loratadine (Loratadine 10 Mg Tablet) 10 mg PO DAILY [facility] Last Admin: 11/14/24 08:52 Dose: 10 mg Documented By: HAILY Magnesium Hydroxide (Milk Of Magnesia 30 Ml Oral.Susp) 30 ml PO DAILY PRN PRN Reason: Constipation Melatonin (Melatonin 3 Mg Tablet) 6 mg PO BEDTIME PRN PRN Reason: Insomnia Last Admin: 11/13/24 23:43 Dose: 6 mg Documented By: USHA Metoprolol Succinate (Metoprolol Succinate Er 50 Mg Tab.Er.24h) 50 mg PO DAILY [facility]; Protocol Last Admin: 11/14/24 09:02 Dose: Not Given Documented By: HAILY Non-Admin Reason: Physician Held Med Multivitamins/Vitamin C (Multivitamin Tablet) 1 tab PO DAILY [facility] Last Admin: 11/14/24 08:52 Dose: Not Given Documented By: HAILY Non-Admin Reason: Patient Refused Omeprazole (Omeprazole 40 Mg Capsule.) 40 mg PO BID@0630,1630 [facility] Last Admin: 11/14/24 05:08 Dose: 40 mg Documented By: USHA Ondansetron HCl (Ondansetron Hcl 4 Mg/2 Ml Vial) 4 mg IVPUSH Q8H PRN PRN Reason: Nausea and Vomiting Polyethylene Glycol (Polyethylene Glycol 3350 17 Gm Powd.Pack) 17 gm PO DAILY [facility] Last Admin: 11/14/24 08:53 Dose: 17 gm Documented By: HAILY Sodium Bicarbonate (Sodium Bicarbonate 650 Mg Tablet) 650 mg PO BID [facility] Last Admin: 11/14/24 08:51 Dose: 650 mg Documented By: HAILY Sodium Chloride (0.9 % Sodium Chloride Flush 3 Ml Syringe) 3 ml IVFLUSH QSHIFT [facility] Last Admin: 11/14/24 08:50 Dose: Not Given Documented By: HAILY Non-Admin Reason: IV Running Tramadol HCl (Tramadol Hcl 50 Mg Tablet) 50 mg PO BID PRN PRN Reason: Pain, Moderate(Pain Scale 4-6) Labs 11/12/24 05:55 11/14/24 05:42 Labs: Laboratory Results - last 24 hr 11/13/24 11/13/24 11/13/24 05:57 11:16 16:09 Anion Gap Estim Creat Clear Calc Estimated GFR POC Glucose 158 H 184 H Random Glucose Calcium Beta-Hydroxybutyrate 0.52 H 11/13/24 11/14/24 11/14/24 19:20 05:42 07:25 Anion Gap 9 L Estim Creat Clear Calc 24.9 Estimated GFR 24 POC Glucose 155 H 129 H Random Glucose 119 H Calcium 8.4 Beta-Hydroxybutyrate Microbiology Microbiology Results: Microbiology 11/11/24 Unknown Urine Culture - Final Urine clean catch - Clean Catch Midstream No growth. Assessment and Plan (1) Constipation: Status: Acute (2) Metabolic acidosis: Status: Acute (3) DINO (acute kidney injury): Status: Acute Plan 84-year-old female with a PMH significant for?CAD, HTN, CKD 3, insulin-dependent type 2 diabetes, and chronic nausea who presents to the ED with constipation for at least one week. Pt will be admitted to the hospital for treatment and further evaluation of DINO on CKD. DINO on CKD3. creatinine improved with IVF ?due to hypovolemia from reduced p.o. intake & GI losses with diuretic use Hold spironolactone and Lasix Nephrology following> continue fluids and bicarb Follow renal function Acute on chronic hyperchloremic Metabolic acidosis, Non anion gap due to above dino continue po sodium bicarb 650 bid nephrology following follow BMP Beta hydroxybutyrate low Constipation KUB without significant stool burden, negative for bowel obstruction abdominal exam benign bowel bowel regimen hypokalemia resolved with replacement CAD Continue aspirin, stop bb due to low bp statin on hold for dino HLD statin on hold Insulin-dependent type 2 diabetes episode of hypoglycemia 11/12, no further episodes likely due to decreased po intake and DINO On low-dose Lantus at baseline, on hold jardiance on hold Sliding-scale insulin Diabetic diet GERD Continue PPI Full Code DVT Prophylaxis: Lovenox Quality Stroke Does the patient have a stroke diagnosis?: No VTE Prior VTE?: No VTE Risk Level:: Medical - moderate - high VTE Device Contraindication: Treatment Not Indicated VTE Drug Contraindication: N/A - Med Ordered
--- NOTE | 2024-11-14 09:49 | PM.CNNEP ---
History of Present Illness Reason for Consult Consult date: 11/14/24 Reason for consult: CKD Chief Complaint Chief complaint: Weakness History of Present Illness Narrative: 84-year-old female with a PMH significant for?CAD, HTN, CKD 3, insulin-dependent type 2 diabetes, and chronic nausea who presents to the ED with constipation for at least one week. Pt reports has been experiencing constipation for the past month or so. Contacted PCP around 10 days ago complaining of constipation and was prescribed a suppository which then worked to evacuate patient's bowels. Pt reports has not had additional bowel movement since then. Has been drinking and urinating normally, but not eating much. Has been passing gas. Denies abdominal pain. Pt has hx of chronic nausea and vomiting. Had 1 episode of vomiting yesterday that pt reports was pretty significant and severe. No other N/V. Pt denies any other significant acute medical complaints. No chest pain/pressure, palpitations. Denies fever, chills. No SOB or difficulty breathing. Review of Systems Constitutional: Denies fever(s) and Denies weight loss Cardiovascular: Denies chest pain Respiratory: Denies cough and Denies hemoptysis Gastrointestinal: Denies abdominal pain, Denies diarrhea and Denies nausea Musculoskeletal: Denies back pain Denies focal weakness PMFSH Past Medical History Medical History CAD (coronary artery disease) GERD (gastroesophageal reflux disease) Insulin dependent type 2 diabetes mellitus Family History Family History Mother Heart disease Hypertension Father Heart disease Hypertension Daughter Diabetes Kidney transplanted Surgical History Surgical History History of knee surgery H/O repair of rotator cuff H/O aortic valve replacement Social History Social History Household Members: Children Household Members Other:: daughter Housing: House Do you presently have visiting nurse or other home services: Yes Alcohol intake: never Comment: Rare Patient Tobacco Use Status: Never used Tobacco service: No Meds Allergies Allergy/AdvReac Type Severity Reaction Status Date / Time adhesive [BANDAGE,ADHESIVE] Allergy Unknown TOOK OFF Verified 11/11/24 14:31 THE SKIN empagliflozin [From Synjardy] Allergy Unknown Verified 11/11/24 14:31 levofloxacin [From LEVAQUIN] AdvReac Unknown VOMITING Verified 11/11/24 14:31 atorvastatin [From Lipitor] AdvReac Unknown Verified 11/11/24 14:31 Active Medications: Current Medications Acetaminophen (Acetaminophen 325 Mg Tablet) 650 mg PO Q6H PRN PRN Reason: Pain, Mild 1-3,fever,headache Aspirin (Aspirin 81 Mg Tab.Chew) 81 mg PO DAILY [facility] Last Admin: 11/14/24 08:51 Dose: 81 mg Calcium Carbonate (Calcium Carbonate 750 Mg Tab.Chew) 750 mg PO Q4H PRN PRN Reason: Heartburn Dextrose (Dextrose 50 % 25 Gm/50 Ml Syringe) 25 gm IVPUSH Q15M PRN; Protocol PRN Reason: per Hypoglycemia Standing Ord. Docusate Sodium (Docusate Sodium 100 Mg Capsule) 100 mg PO BID [facility] Last Admin: 11/14/24 08:51 Dose: 100 mg Enoxaparin Sodium (Enoxaparin Sodium 30 Mg/0.3 Ml Syringe) 30 mg SUBCUT Q24H [facility] Last Admin: 11/13/24 20:28 Dose: 30 mg Glucose (Glucose Gel 15 Gm Gel..Gram.) 15 gm PO Q15M PRN; Protocol PRN Reason: per Hypoglycemia Standing Ord. Lactated Ringer's (Lr) 1,000 mls @ 75 mls/hr IVCONT .[id number] [facility] Last Admin: 11/14/24 00:52 Dose: 75 mls/hr Insulin Human Lispro (Insulin Lispro 100 Unit/Ml 3 Ml Vial) 0 unit SUBCUT QIDACHS [facility]; Protocol Last Admin: 11/14/24 07:35 Dose: Not Given Lactulose (Lactulose 20 Gm/30 Ml Solution) 30 gm PO DAILY PRN PRN Reason: Constipation Loratadine (Loratadine 10 Mg Tablet) 10 mg PO DAILY [facility] Last Admin: 11/14/24 08:52 Dose: 10 mg Magnesium Hydroxide (Milk Of Magnesia 30 Ml Oral.Susp) 30 ml PO DAILY PRN PRN Reason: Constipation Melatonin (Melatonin 3 Mg Tablet) 6 mg PO BEDTIME PRN PRN Reason: Insomnia Last Admin: 11/13/24 23:43 Dose: 6 mg Metoprolol Succinate (Metoprolol Succinate Er 50 Mg Tab.Er.24h) 50 mg PO DAILY [facility]; Protocol Last Admin: 11/14/24 09:02 Dose: Not Given Multivitamins/Vitamin C (Multivitamin Tablet) 1 tab PO DAILY [facility] Last Admin: 11/14/24 08:52 Dose: Not Given Omeprazole (Omeprazole 40 Mg Capsule.Dr) 40 mg PO BID@0630,1630 [facility] Last Admin: 11/14/24 05:08 Dose: 40 mg Ondansetron HCl (Ondansetron Hcl 4 Mg/2 Ml Vial) 4 mg IVPUSH Q8H PRN PRN Reason: Nausea and Vomiting Polyethylene Glycol (Polyethylene Glycol 3350 17 Gm Powd.Pack) 17 gm PO DAILY [facility] Last Admin: 11/14/24 08:53 Dose: 17 gm Sodium Bicarbonate (Sodium Bicarbonate 650 Mg Tablet) 650 mg PO BID [facility] Last Admin: 11/14/24 08:51 Dose: 650 mg Sodium Chloride (0.9 % Sodium Chloride Flush 3 Ml Syringe) 3 ml IVFLUSH QSHIFT [facility] Last Admin: 11/14/24 08:50 Dose: Not Given Tramadol HCl (Tramadol Hcl 50 Mg Tablet) 50 mg PO BID PRN PRN Reason: Pain, Moderate(Pain Scale 4-6) Home Medications ?Medication ?Instructions ?Recorded ?Confirmed ?Last Taken ?Type aspirin 81 mg chewable tablet 1 tab PO DAILY 05/03/24 11/11/24 11/11/24 History blood sugar diagnostic (OneTouch #10 ea 05/03/24 Unknown History Verio test strips) cetirizine 10 mg tablet 10 mg PO DAILY 05/03/24 11/11/24 11/11/24 History pen needle, diabetic 32 gauge x #1,200 ea 05/03/24 Unknown History (BD Sophia 2nd Gen Pen Needle) tramadol 50 mg tablet 50 mg PO BID PRN Pain 05/03/24 11/11/24 Unknown History docusate sodium 100 mg capsule 100 - 200 mg PO DAILY 05/06/24 11/11/24 11/11/24 History omeprazole 20 mg capsule,delayed 40 mg PO BID 05/06/24 11/11/24 11/11/24 History release insulin glargine 100 unit/mL (3 8 unit subcut BEDTIME 11/11/24 11/11/24 11/10/24 History mL) subcutaneous pen (Lantus Solostar U-100 Insulin) metoprolol succinate 50 mg 50 mg PO DAILY 11/11/24 11/11/24 Unknown History tablet,extended release 24 hr rosuvastatin 40 mg tablet 40 mg PO BEDTIME 11/11/24 11/11/24 Unknown History solifenacin 5 mg tablet 5 mg PO DAILY 11/11/24 11/11/24 11/11/24 History vitamins A,C,B-mslw-vxgksu 2,148 2 tab PO BID 11/11/24 11/11/24 11/11/24 History mcg-113 mg-45 mg-17.4 mg tablet (PreserVision AREDS) Physical Exam Vital Signs: Last Vital Signs Temp 98.5 F 11/14/24 07:58 Pulse 62 11/14/24 07:58 Resp 16 11/14/24 07:58 BP 107/53 L 11/14/24 07:58 Pulse Ox 99 11/14/24 07:58 O2 Del Method Room Air 11/14/24 07:58 BMI result Body Mass Index 29.6 Awake. Comfortable. Neck is supple. Mucosa moist. Lungs bilateral scattered rhonchi. Heart S1-S2 heard no gallop. Abdomen soft. Extremities no edema. No involuntary movements. No myoclonus. Results Lab Results 11/12/24 05:55 11/15/24 08:08 Lab results: Chemistry 11/11/24 11/11/24 11/12/24 15:28 19:49 05:55 Sodium 136 138 140 Potassium 3.9 3.3 3.5 Carbon Dioxide 16 L 13 L 15 L BUN 34 H 34 H 31 H Creatinine 2.85 H 2.57 H 2.64 H Calcium 9.3 8.6 D 8.7 11/13/24 11/14/24 05:57 05:42 Sodium 141 141 Potassium 2.8 L* 3.3 Carbon Dioxide 16 L 17 L BUN 26 H 23 H Creatinine 2.27 H 2.02 H Calcium 8.5 8.4 Hematology 11/11/24 11/12/24 15:28 05:55 WBC 8.5 7.6 Hgb 12.3 11.0 L Plt Count 178 D 147 L Urinalysis 11/11/24 15:43 Urine Color Yellow Urine Appearance Turbid Urine pH 5.0 Ur Specific [place] 1.020 Urine Protein 100 (2+) H Urine Glucose (UA) >=1000 H Urine Ketones Negative Urine Blood Small (1+) H Urine Nitrite Negative Ur Leukocyte Esterase Moderate (2+) H Urine RBC 0-2 Urine WBC 6-10 Ur Squamous Epith Cells 3-5 Hyaline Casts 6-10 Assessment and Plan (1) DINO (acute kidney injury): Status: Acute Plan 84-year-old woman with DINO superimposed on CKD. DINO most likely due to hypoperfusion. Renal function is improving with hydration. Avoid hypotension. Hold antihypertensive medications if systolic blood pressure less than 100 mm Hg Hyperchloremic metabolic acidosis. Check urine anion gap. Agree with the sodium bicarb supplementation. Procedures Date of Service Date of Service: 11/15/24
--- NOTE | 2024-11-14 11:13 | MHC.CLN ---
NUTRITION ROUTINE CONSULT. DIET=2 GRAM SODIUM. DX DINO ON CKD. PATIENT WITH HX DM. REVIEW OF WEIGHT HX SHOWS WEIGHT LOSS X 3 MONTHS -6.9% AND WEIGHT LOSS X 6 MONTHS -10%. VARYING WEIGHTS THIS ADM, 100 KG AND 88.3 KG. WEIGHT LOSS BASED ON WEIGHT=88.3 KG. INTAKE APPEARS GOOD, 75-100%. NO ADDITIONAL NUTRITION INTERVENTIONS AT THIS TIME. RD TO MONITOR WEEKLY.
[2024-11-14 11:28] LABS: Glucose, Whole Blood 154 mg/dL (60-115)
[2024-11-14] MEDS: Insulin Lispro 100 UNIT/ML 3 ML VIAL SUBCUT ×3 (12:33→21:43)
--- NOTE | 2024-11-14 13:45 | MHC.CM.PN ---
Patient is not medically cleared to discharge, r/t DINO. She may be ready tomorrow. DP Home with resumption of [employer]. Patient's son will provide transport home.
[2024-11-14 14:55] VITALS: BP 102/44; PULSE 72; RESP 16; TEMP 36.6; O2SAT 98
[2024-11-14 16:14] LABS: Glucose, Whole Blood 170 mg/dL (60-115)
[2024-11-14 19:32] VITALS: BP 115/57; PULSE 78; RESP 18; TEMP 36.9; O2SAT 97
[2024-11-14] MEDS: Enoxaparin Sodium 30 MG/0.3 ML SYRINGE SUBCUT (20:05)
[2024-11-14 20:35] LABS: Glucose, Whole Blood 171 mg/dL (60-115)
[2024-11-14] MEDS: 0.9 % Sodium Chloride Flush 3 ML SYRINGE IVFLUSH (21:43)
[2024-11-15 02:55] VITALS: BP 137/62; PULSE 82; RESP 18; TEMP 36.2; O2SAT 98
[2024-11-15] MEDS: Lactated Ringers 1,000 ML 75 ML IVCONT (03:16)
[2024-11-15] MEDS: Omeprazole 40 MG CAPSULE.DR PO (05:38)
[2024-11-15 07:16] VITALS: BP 109/55; PULSE 79; RESP 16; TEMP 36.9; O2SAT 97
[2024-11-15 07:34] LABS: Glucose, Whole Blood 101 mg/dL (60-115)
--- NOTE | 2024-11-15 08:38 | P.DS_ITS ---
DS: Providers Provider Date of Service: 11/15/24 Date of admission: 11/11/24 20:21 Date of discharge: 11/15/24 Primary care physician: Renny Ramirez III, MD Consults: 11/11/24 20:25 Consult to Nephrology Routine Consulting Provider: [facility] Reason for consultation: DINO DS: Diagnosis Discharge Diagnosis (1) DINO (acute kidney injury): Status: Acute DS: Summary Hospital Course Hospital Course: History and physical as per admitting provider. Pt is an 84-year-old female with a PMH significant for?CAD, HTN, CKD 3, insulin-dependent type 2 diabetes, and chronic nausea who presents to the ED with constipation for at least one week. Pt reports has been experiencing constipation for the past month or so. Contacted PCP around 10 days ago complaining of constipation and was prescribed a suppository which then worked to evacuate patient's bowels. Pt reports has not had additional bowel movement since then. Has been drinking and urinating normally, but not eating much. Has been passing gas. Denies abdominal pain. Pt has hx of chronic nausea and vomiting. Had 1 episode of vomiting yesterday that pt reports was pretty significant and severe. No other N/V. Pt denies any other significant acute medical complaints. No chest pain/pressure, palpitations. Denies fever, chills. No SOB or difficulty breathing. In the ED pt with soft BP as low as 112/41. Labs were significant for creatinine 2.85 (previous 1.95 on 10/03/2024), bicarb 13, and albumin 3.4. Otherwise grossly unremarkable and around baseline for pt. No leukocytosis. Stable H&H. Sodium and potassium WNL. Hepatic function WNL. UA not entirely consistent with acute UTI, likely contaminated. Tested negative for flu, COVID, RSV. KUB showed stool in right hemicolon, but without evidence of intestinal obstruction. Pt was treated with IVF. Pt will be admitted to the hospital for treatment and further evaluation of DINO on CKD. 84-year-old woman treated for DINO on CKD stage 3. Secondary to hypovolemia from reduced p.o. intake and GI losses with diuretic use. Spironolactone and Lasix have been on hold. Seen evaluated by Nephrology recommended fluids and oral bicarb. Renal function has improved significantly. Acute on chronic hyperchloremic Metabolic acidosis, Non anion gap due to above dino, continue po sodium bicarb 650 bid Constipation. KUB without significant stool burden, negative for bowel obstruction. abdominal exam benign , bowel bowel regimen hypokalemia resolved with replacement CAD, Continue aspirin and BB HLD statin Insulin-dependent type 2 diabetes, episode of hypoglycemia 11/12, no further episodes, likely due to decreased po intake and DINO, continue home medications GERD Continue PPI Time Attestation Discharge Coordination Time (in mins): 45 Quality: Safe Use of Opioids Does Pt have an Active Cancer Diagnosis on the Problem List?: No Quality: Stroke Does the patient have a stroke diagnosis?: No Physical Exam Vital Signs: Vital Signs: Last Vital Signs Temp 98.4 F 11/15/24 07:16 Pulse 79 11/15/24 07:16 Resp 16 11/15/24 07:16 BP 109/55 L 11/15/24 07:16 Pulse Ox 97 11/15/24 07:16 O2 Del Method Room Air 11/15/24 07:16 BMI result Body Mass Index 29.6 Appearing in no acute distress head is normocephalic atraumatic eyes pupils are PERRLA sclera is anicteric mouth throat mucous membranes are intact and moist neck is supple no lymphadenopathy, no JVD noted lung sounds are clear to auscultation heart regular rate rhythm, clear S1, S2 positive bowel sounds, abdomen is soft, nontender neuro patient is alert x3, no focal deficits DS: Data Data Completed and Pending Labs on day of discharge: Laboratory Results - last 24 hr 11/14/24 11/14/24 11/14/24 11:02 16:08 20:27 POC Glucose 154 H 170 H 171 H 11/15/24 07:19 POC Glucose 101 Discharge Plan Discharge Anticipated Discharge Date/Time: 11/15/24 08:29 Patient Disposition: Home, Self-Care Discharge Diagnosis: DINO on CKD stage 3 Acute on chronic hyperchloremic metabolic non-anion gap acidosis Constipation Hypokalemia Referrals: Renny Ramirez III, MD [Primary Care Provider] - 1 Week Discharge Medications: New polyethylene glycol 3350 [Miralax] 17 gram powder in packet 17 g PO DAILY Qty: 30 0RF docusate sodium [Colace] 100 mg capsule 100 mg PO DAILY Qty: 30 0RF potassium chloride 20 mEq tablet extended release 20 meq PO DAILY Qty: 3 0RF sodium bicarbonate 650 mg Tablet 650 mg PO BID Qty: 6 0RF Continued insulin glargine [Lantus Solostar U-100 Insulin] 100 unit/mL (3 mL) insulin pen 8 unit subcut BEDTIME solifenacin 5 mg tablet 5 mg PO DAILY PreserVision AREDS 2,148 mcg-113 mg-45 mg-17.4mg Tablet 2 tab PO BID Rx Instructions: administer with AM and PM meals rosuvastatin 40 mg tablet 40 mg PO BEDTIME metoprolol succinate 50 mg tablet extended release 24 hr 50 mg PO DAILY tramadol 50 mg tablet 50 mg PO BID PRN (Reason: Pain) (DME) OneTouch Verio test strips Strip See Rx Instructions .ROUTE BID Qty: 10 Rx Instructions: As directed cetirizine 10 mg tablet 10 mg PO DAILY aspirin 81 mg tablet,chewable 1 tab PO DAILY (DME) pen needle, diabetic [BD Sophia 2nd Gen Pen Needle] 32 gauge x 5/32 needle See Rx Instructions .ROUTE .MEDSUPPLY Qty: 1200 Rx Instructions: As directed docusate sodium 100 mg capsule 100 - 200 mg PO DAILY omeprazole 20 mg capsule,delayed release(DR/EC) 40 mg PO BID empagliflozin 10 mg tablet 10 mg PO DAILY Qty: 30 3RF Discontinued furosemide 20 mg tablet 20 mg PO SUTUTHFRSA spironolactone 50 mg tablet 50 mg PO DAILY Qty: 90 4RF Discharge Orders: Discharge Order (Routine); Ordered 11/15/24 Ordered By: Avis Norris Diet: Advance to usual diet Activity on Discharge: As tolerated Stand Alone Forms: Patient Portal Discharge page Print Language: Bulgarian Care Plan Goals: Take MiraLax and Colace to help with constipation Your furosemide and spironolactone were stopped due to low blood pressures, follow up with primary care provider as soon as possible to determine whether these medications need to be restarted Health Concerns: DINO on CKD stage 3 Acute on chronic hyperchloremic metabolic non-anion gap acidosis Constipation Hypokalemia Plan of Treatment: Follow-up with primary care provider as needed Take all medications as prescribed Assessment: See discharge summary Patient Instructions: Constipation (ED)
[2024-11-15 08:43] VITALS: BP 109/55; PULSE 79; O2SAT 97
[2024-11-15 09:42] LABS: Anion Gap 6 (12-20); Blood Urea Nitrogen 20 mg/dL (9-16); Calcium 8.2 mg/dL (8.4-10.2); Carbon Dioxide 19 mmol/L (22-29); Chloride 121 mmol/L (96-108); Creatinine Clr Calc Pharmacy 30.2; Estimated Glomerular Filt Rate 29; Glucose Random 106 mg/dL (60-115); Potassium 3.2 mmol/L (3.3-5.1); Sodium 143 mmol/L (135-145)
[2024-11-15] MEDS: Sodium Bicarbonate 650 MG TABLET PO (09:44)
[2024-11-15] MEDS: Loratadine 10 MG TABLET PO (09:44)
[2024-11-15] MEDS: Docusate Sodium 100 MG CAPSULE PO (09:44)
[2024-11-15] MEDS: Aspirin 81 MG TAB.CHEW PO (09:44)
[2024-11-15] MEDS: polyethylene glycoL 3350 17 GM POWD.PACK PO (09:45)
--- NOTE | 2024-11-15 09:55 | P.PNNP_ITS ---
Subjective Subjective Date of Service: 11/15/24 Interval history: Seen and examined this morning Follow-up for generalized weakness, renal failure, metabolic acidosis No overnight events Feeling well this morning. no abdominal pain, nausea, vomiting, diarrhea Physical Exam 2 Vital Signs: Vital Signs: Last Vital Signs Temp 98.4 F 11/15/24 07:16 Pulse 79 11/15/24 08:43 Resp 16 11/15/24 07:16 BP 109/55 L 11/15/24 08:43 Pulse Ox 97 11/15/24 08:43 O2 Del Method Room Air 11/15/24 07:16 BMI result Body Mass Index 29.6 Const: General: cooperative, comfortable, no acute distress, alert and awake Nutritional Appearance: overweight Orientation/consciousness: patient oriented x3 Resp: Effort & Inspection: normal respiratory effort, able to speak in complete sentences, no respiratory distress and no use of accessory muscles Cardio: Rate: regular rate GI: Inspection: No distended Palpation (GI): Soft to palpation and nontender Neuro: General: patient oriented x3, moves all extremities and CN's II-XI intact bilaterally Extrem: General: Yes no pedal edema Objective Data Labs 11/12/24 05:55 11/15/24 08:08 Labs: Laboratory Results - last 24 hr 11/14/24 11/14/24 11/14/24 11:02 16:08 20:27 Sodium Potassium Chloride Carbon Dioxide Anion Gap BUN Creatinine Estim Creat Clear Calc Estimated GFR POC Glucose 154 H 170 H 171 H Random Glucose Calcium 11/15/24 11/15/24 07:19 08:08 Sodium 143 Potassium 3.2 L Chloride 121 H Carbon Dioxide 19 L Anion Gap 6 L BUN 20 H Creatinine 1.67 H Estim Creat Clear Calc 30.2 Estimated GFR 29 POC Glucose 101 Random Glucose 106 Calcium 8.2 L Microbiology Microbiology Results: Microbiology 11/11/24 Unknown Urine clean catch - Clean Catch Midstream Urine Culture - Final No growth. Procedures Date of Service Date of Service: 11/15/24 Assessment & Plan Assessment and plan (1) DINO (acute kidney injury): Status: Acute Plan 84-year-old woman with DINO superimposed on CKD. DINO most likely due to hypoperfusion. Renal function is improving with hydration. Avoid hypotension. Hold antihypertensive medications if systolic blood pressure less than 100 mm Hg Hyperchloremic metabolic acidosis. Check urine anion gap. Agree with the sodium bicarb supplementation. Replace potassium Shall arrange for outpatient follow-up with Dr. Garcia Time Spent With Patient Time: Total time managing care of this patient today ____ minutes. Progress Note: Quality Stroke Does the patient have a stroke diagnosis?: No
--- NOTE | 2024-11-15 10:37 | MHC.CM.PN ---
IMM 11/15/24 Patient is discharged to home with resumption of [employer] services. She has arranged for transportation home.
[2024-11-15] MEDS: Insulin Lispro 100 UNIT/ML 3 ML VIAL SUBCUT (12:16)
[2024-11-15] MEDS: Potassium Chloride ER 20 MEQ TAB.ER.PRT 40 MEQ PO (12:16)
[2024-11-15 13:18] LABS: Glucose, Whole Blood 177 mg/dL (60-115)
[2024-11-15 13:28] VITALS: BP 132/83; PULSE 97; RESP 16; TEMP 36.9; O2SAT 97
== END 2024-11-15 13:34 | disposition home or self-care (01) | DRG 683 ==
LOC: HO.ED 16:33 → HO.EDOVER 20:29 → HO.S3 11-12 19:45
PROVIDERS: Physician Assistant; Physician Assistant Medical; Admitting Provider Student in an Organized Health Care Education/Training Program; Emergency Provider Emergency Medicine; PCP Internal Medicine; Visit Provider Nurse Practitioner Acute Care
DX: N17.9 Acute kidney failure, unspecified (principal); E87.21 Acute metabolic acidosis; E87.22 Chronic metabolic acidosis; K59.00 Constipation, unspecified; I12.9 Hypertensive chronic kidney disease with stage 1 through stage 4 chronic kidney disease, or unspecified chronic kidney disease; N18.30 Chronic kidney disease, stage 3 unspecified; K21.9 Gastro-esophageal reflux disease without esophagitis; E87.6 Hypokalemia; E86.1 Hypovolemia; E11.22 Type 2 diabetes mellitus with diabetic chronic kidney disease; E78.5 Hyperlipidemia, unspecified; E11.649 Type 2 diabetes mellitus with hypoglycemia without coma; I25.10 Atherosclerotic heart disease of native coronary artery without angina pectoris; Z20.822 Contact with and (suspected) exposure to COVID-19; Z95.2 Presence of prosthetic heart valve; Z79.4 Long term (current) use of insulin; Z79.82 Long term (current) use of aspirin; Z79.899 Other long term (current) drug therapy
CPT/HCPCS: 0241U; 36415; 74018; 80048; 80053; 81001; 81003; 82010; 82803; 82947; 83735; 85025; 87086; 97161; 99285; J1650; J3480; J7120

== ENCOUNTER → 2024-11-11 14:14 | Outpatient (BNV) | payer MEDICARE, OTHER, SELFPAY | PROVIDERS: PCP Internal Medicine; Visit Provider Radiology Diagnostic Radiology | DX: K59.00 Constipation, unspecified (principal) | CPT/HCPCS: 74018 ==

== ENCOUNTER → 2024-11-11 20:21 | Outpatient (BNV) | payer MEDICARE, OTHER, SELFPAY | PROVIDERS: Admitting Provider Student in an Organized Health Care Education/Training Program; Emergency Provider Emergency Medicine; PCP Internal Medicine; Visit Provider Internal Medicine Hypertension Specialist | DX: N17.9 Acute kidney failure, unspecified (principal) | CPT/HCPCS: 99223; 99232 ==

== ENCOUNTER → 2024-11-11 20:21 | Outpatient (BNV) | payer MEDICARE, OTHER, SELFPAY | PROVIDERS: Admitting Provider Student in an Organized Health Care Education/Training Program; Emergency Provider Emergency Medicine; PCP Internal Medicine; Visit Provider Student in an Organized Health Care Education/Training Program | DX: K59.00 Constipation, unspecified (principal); E87.20 Acidosis, unspecified; N17.9 Acute kidney failure, unspecified | CPT/HCPCS: 99223; 99232; 99239 ==

== ENCOUNTER 2024-11-26 12:38 | Outpatient (AMB) | payer MEDICARE, OTHER, SELFPAY ==
--- OUTSIDE RECORDS SUMMARY | 2024-11-26 12:40 | XMS_ITS | Clinical Summary ---
Author Organization [facility] Address [address] [facility] [address] [place] [address] Phone Care Team Providers Care Cook House Supervisor Name Role Phone Renny Ramirez MD Primary Care Provider [phone] Allergies Active Allergy Reactions Criticality Noted Date [...] 1 (one) time each day 8 Active [place]-3 Fatty Acids 1360 MG capsule Take by [...] AM EST) Hemoglobin A1C 6.3(H) (4.0-5.6) % [facility] Comment: MONITORING: In known diabetic patients, hemoglobin A1c targets should be discussed with health care provider. DIAGNOSTIC USE: ??The [place] Diabetes Association (ADA) and the World Health [...] Supplement 1 Testing performed or reported by [facility], a Service of [facility], [address] [place] [id number] Mike Purdy MD, Hat Renovator [facility]# [id number] Blood (Blood, Venous) 10/15/2022 11:30 AM EST 10/15/2022 11:32 AM EST Indra Rivera MD LAB BLOOD ORDERABLES Final Re sult [facility] from Last 3 Months or Most Recently Relevant to Health Maintenance Insurance MEDICARE [facility] MEDICARE [facility] Care Teams Cook House Supervisor Relationship Specialty Start Date End Date Renny Ramirez MD PCP - General Internal Medicine 04/15/22
--- OUTSIDE RECORDS SUMMARY | 2024-11-26 12:41 | XMS_ITS | Encounter Summary ---
Author Organization [facility] Address [address] [place] [address] Care Team Providers Care Software Security Architect Name Role Phone Renny Ramirez MD Primary Care Provider Reason for Visit * Reason Onset Date Comments patient outreach 11/24/2024 Encounter Details Date Type Department Care Team ([facility] st Contact Info) Description 11/24/2024 Telephone Adult Medicine [facility] [address] [place] [id number] Michelle Chamorro, PharmD [address] [place] [address] patient outreach Social History Tobacco Use Types Packs/Day Years Used Date Smoking Tobacco: Never Smokeless Tobacco: Never Alcohol Use Standard Drinks/Week Comments No 0 (1 standard drink = 0.6 oz pur e alcohol) Housing Instability Answer Date Recorde d Are you worried that in the next 2 months you may not have stable housing? No 11/24/2024 Food Access & Nutrition Answer Date Rec orded Do you have access to a vari ety of food including fruits and vegetables? Yes 11/24/2024 Access to Healthcare Answer Date Record ed Within the last 3 months, frederic castro many times did you visit the emergency department for your medical care? 1 11/24/2024 Health Literacy Answer Date Recorded How often do you need to hav e someone help you when you read instructions, pamphlets, or other written material from your doctor or pharmacy? Never 11/24/2024 Caregiver: How often do you need to have someone help you when you read instructions, pamphlets, or other written material from your doctor or pharmacy? Not on file 11/24/2024 Financial Risk Answer Date Recorded How hard is it for you to pa y for the very basics like food, housing, medical care, and air conditioning / heating? Not very hard 11/24/2024 Transportation Answer Date Recorded Has the lack of transportati on kept you from meetings, work, or from getting things needed for daily living? No Has the lack of transportati on kept you from medical appointments or from getting medications? No 11/24/2024 Social Isolation Answer Date Recorded How often do you feel lonely or isolated from th ose around you? Never 11/24/2024 Food Risk Answer Date Recorded Within the past 12 months we worried whether our food would run out before we got money to buy more. Never true 11/24/2024 Within the past 12 months th e food we bought just didn't last and we didn't have money to get more. Never true 11/24/2024 Dependent Care Answer Date Recorded Do you need help finding or paying for care for your loved ones. For example, child support agent or elderly care for an older adult? No 11/24/2024 Education Answer Date Recorded Do you think completing more education or training, like finishing a GED, going to college, or learning a trade, would be helpful for you? N/A 11/24/2024 Employment and Income Answer Date Recor ded During the last four weeks, have you been actively looking for work? No 11/24/2024 Living Situation Answer Date Recorded What is your living situation? 0 11/24/2024 Comments No Sex and Gender Information Value Date Recorded Sex Assigned at Not on file Legal Sex Female 5:11 AM EST Gender Identity Not on file Sexual Orientation Not on file documented as of this encounter Progress Notes * Michelle Chamorro, TomerD - 11/24/2024 3:58 PM EDT Received urgent referral from Sofi Chandra as patient's sugars are still low. Patient reports the following per Sofi: 11/24 84 11/23 71-pt did not feel hypoglycemic-I drank some juice 11/22 102 3/31 98 11/20 76 11/19 81 11/18 decreased Lantus to 6 units at hs Called patient- advised to stop lantus and I will call her next at 11:30. She will still continue on jardiance. FYI to Dr. James Chamorro, PharmD., [facility] Clinical Pharmacist Inessa HOLMAN [email or web address] P: [phone] F:[phone] documented in this encounter Plan of Treatment Upcoming Encounters Date Type Department Care Team (Late st Contact Info) Description 12/06/2024 10:30 AM EDT Office Visit Adult Medicine [address] [phone] Renny Ramirez MD [address] [place] [address] 12/22/2024 1:00 PM EDT Office Visit Orthopedic Surgery [facility] [address] [phone] Rogers Walter, DPM [address] [address] 03/01/2025 1:00 PM EDT Appointment Radiology Department [address] [phone] 03/02/2025 11:10 AM EDT Office Visit Gastroenterology - [place] [address] [address] Arlene Beard PA [address] [address] 03/17/2025 1:00 PM EDT Office Visit [address] [phone] Renny Ramirez MD [address] [place] [address] documented as of this encounter Visit Diagnoses Not on filedocumented in this encounter Care Teams Software Security Architect Relationship Specialty Start Date End Date Renny Ramirez MD [address] [place] [address] PCP - General Internal Medicine 02/14/20 documented as of this encounter
--- OUTSIDE RECORDS SUMMARY | 2024-11-26 12:41 | XMS_ITS ---
Author Organization [facility] Address [address] [place] [address] Care Team Providers Care Seed Cutter Name Role Phone Renny Ramirez MD Primary Care Provider [phone] Transitional Care Management Status:Ongoing (Active) Start date:11/15/2024 Enrollment date:11/16/2024 Enrollment reason:Identified using hospital discharge data Case Team Name Relationship Phone Isela Nicholas LPN Care Manager(Responsible Staf f) Continued Care and Services Coordination
--- OUTSIDE RECORDS SUMMARY | 2024-11-26 12:41 | XMS_ITS | Encounter Summary ---
Author Organization [facility] Address [address] [place] [address] Care Team Providers Care Airfreight Operations Agent Name Role Phone Renny Ramirez MD Primary Care Provider [phone] Reason for Visit * Reason Onset Date Comments provider call back 11/17/2024 Encounter Details Date Type Department Care Team (Late st Contact Info) Description 11/17/2024 Telephone Gastroenterology - [place] [address] [facility] [address] [facility] [address] [place] [address] Arlene Beard PA [address] [facility] [address] [place], [place] [phone] provider call back Social History Tobacco Use Types Packs/Day Years Used Date Smoking Tobacco: Never Smokeless Tobacco: Never Alcohol Use Standard Drinks/Week Comments No 0 (1 standard drink = 0.6 oz pur e alcohol) Housing Instability Answer Date Recorde d Are you worried that in the next 2 months you may not have stable housing? No 11/16/2024 Food Access & Nutrition Answer Date Rec orded Do you have access to a vari ety of food including fruits and vegetables? Yes 11/16/2024 Access to Healthcare Answer Date Record ed Within the last 3 months, frederic castro many times did you visit the emergency department for your medical care? 1 11/16/2024 Financial Risk Answer Date Recorded How hard is it for you to pa y for the very basics like food, housing, medical care, and air conditioning / heating? Not very hard 11/16/2024 Transportation Answer Date Recorded Has the lack of transportati on kept you from meetings, work, or from getting things needed for daily living? Not on file 11/16/2024 Has the lack of transportati on kept you from medical appointments or from getting medications? No 11/16/2024 Social Isolation Answer Date Recorded How often do you feel lonely or isolated from th ose around you? Rarely 11/16/2024 Food Risk Answer Date Recorded Within the past 12 months we worried whether our food would run out before we got money to buy more. Never true 11/16/2024 Within the past 12 months th e food we bought just didn't last and we didn't have money to get more. Never true 11/16/2024 Living Situation Answer Date Recorded What is your living situation? 0 11/16/2024 Comments No Sex and Gender Information Value Date Recorded Sex Assigned at Not on file Legal Sex Female 5:11 AM EST Gender Identity Not on file Sexual Orientation Not on file documented as of this encounter Progress Notes * Leticia Guevara MA - 11/17/2024 3:50 PM EDT Received Awa will review with Pts upcoming apt * Sarah Ohara - 11/17/2024 1:16 PM EDT Records received from [facility], placed in Awa's folder for review * Leticia Guevara MA - 11/17/2024 12:02 PM EDT Faxed [facility] records for ER notes * Sarah Ohara - 11/17/2024 10:21 AM EDT Patient was admitted to [facility] 11/11 to 11/15 for chronic constipation. Patient wanted to inform Awa so she can discuss this at her upcoming appt 3/31. Please advise. documented in this encounter Plan of Treatment Upcoming Encounters Date Type Department Care Team (Late st Contact Info) Description 12/06/2024 10:30 AM EDT Office Visit [address] [phone] Renny Ramirez MD [address] [place] [address] 12/22/2024 1:00 PM EDT Office Visit Orthopedic Surgery - [place] [address] [phone] Rogers Walter, DPM [address] [address] 03/01/2025 1:00 PM EDT Appointment Radiology Department - [address] [phone] 03/02/2025 11:10 AM EDT Office Visit Gastroenterology - [place] [address] [facility] [address] [address] Arlene Beard PA [address] [facility] [address] [place] [address] 03/17/2025 1:00 PM EDT Office Visit [address] [phone] Renny Ramirez MD [address] [place] [address] documented as of this encounter Visit Diagnoses Not on filedocumented in this encounter Care Teams Airfreight Operations Agent Relationship Specialty Start Date End Date Renny Ramirez MD [address] [place] [address] PCP - General Internal Medicine 02/14/20 documented as of this encounter
--- OUTSIDE RECORDS SUMMARY | 2024-11-26 12:41 | XMS_ITS | Clinical Summary ---
Author Organization [facility] Address [address] [place] [address] Care Team Providers Care Watch Inspector Name Role Phone Renny Ramirez MD Primary Care Provider [phone] Allergies Active Allergy Reactions Criticality Noted Date Comments Atorvastatin Calcium 11/18/2005 liver problems Diphtheria-Tetanus Toxoids Ped 09/06/2009 Other Reaction(s): OTHER Swelling injection site/years ago Levofloxacin 11/18/2005 vomiting Medications aspirin 81 mg chewable tablet CHEW 1 TABLET BY MOUTH EVERY DAY 04/28/20 23 Active rosuvastatin (CRESTOR) 40 mg tablet Take 1 Tablet by mouth at bedtime. 10/16/19 24 Active cetirizine (ZyrTEC) 10 mg tablet TAKE 1 TABLET BY MOUTH EVERY DAY 03/09/20 24 Active solifenacin (VESICARE) 5 mg tablet TAKE 1 TABLET BY MOUTH EVERY DAY 03/09/20 24 Active blood sugar diagnostic (OneTouch Verio test strips) test strip USE TO TEST BLOOD SUGAR TWICE A DAY 03/09/20 24 Active ondansetron (ZOFRAN) 4 mg tablet Take 1 Tablet by mouth every 8 hours as needed for Nausea. 02/03/20 24 Active acetaminophen (TYLENOL) 500 mg tablet Take 6 tablets (3,000 mg total) by mouth 1 (one) time each day. Active pen needle, diabetic 32 gauge x 5/32 needle Use to inject insulin once daily 06/18/20 23 Active metoprolol succinate (TOPROL-XL) 50 mg 24 hr tablet Take 1 tablet (50 mg total) by mouth 1 (one) time each day. Do not crush or chew. 90 each 3 10/04/19 25 026 Active traMADoL (ULTRAM) 50 mg tablet Take 1 tablet (50 mg total) by mouth every 12 (twelve) hours if needed for severe pain. for pain Max Daily Amount: 100 mg 56 tablet 11/11/19 25 Active docusate sodium (COLACE) 100 mg capsule Take 1 capsule (100 mg total) by mouth 1 (one) time each day. Active insulin glargine (Lantus Solostar U-100 Insulin) 100 unit/mL (3 mL) injection pen Inject 6 Units under the skin at bedtime. Active empagliflozin (Jardiance) 10 mg tablet Take 1 tablet (10 mg total) by mouth 1 (one) time each day in the morning. Active pantoprazole (PROTONIX) 40 mg EC tablet Take 1 tablet (40 mg total) by mouth 2 (two) times a day. Do not crush, chew, or split. 180 each 3 11/22/19 25 026 Active linaCLOtide (LINZESS) 72 mcg capsule Take 1 capsule (72 mcg total) by mouth 1 (one) time each day before breakfast. 90 capsule 3 11/22/19 25 Active furosemide (LASIX) 20 mg tablet TAKE 1 TABLET BY MOUTH 5 DAYS PER WEEK 01/15/20 24 025 Discontinued(T herapy completed) metFORMIN (GLUCOPHAGE) 500 mg tablet Take 1 tablet (500 mg total) by mouth 1 (one) time each day with breakfast. 02/10/20 24 025 Discontinued(T herapy completed) docusate sodium (COLACE) 100 mg capsule Take 1 Capsule by mouth 2 times daily. 025 Discontinued(D ose adjustment) omega-3 acid ethyl esters (LOVAZA) 1 gram capsule Take by mouth. 025 Discontinued(T herapy completed) vitamin E mixed 400 unit capsule Take 1 Capsule by mouth daily. 025 Discontinued(T herapy completed) hydrocortisone 2.5 % cream Apply topically 2 times daily. 025 Discontinued(T herapy completed) coffee xt/phosphatidyl serine (NEURIVA ORIGINAL ORAL) Misc Natural Products (Neuriva) Cap : Take by mouth. - Oral 025 Discontinued(T herapy completed) vit C/E/Zn/coppr/laverne tein/zeaxan (PRESERVISION AREDS-2 ORAL) Multiple Vitamins-Mine rals (PreserVision AREDS 2) Cap : Take by mouth. - Oral 025 Discontinued(T herapy completed) cholecalciferol (VITAMIN D-3) 125 mcg (5,000 unit) capsule Take by mouth. 025 Discontinued(T herapy completed) ascorbic acid (VITAMIN C) 250 mg tablet Take 1 Tablet by mouth daily. 025 Discontinued(T herapy completed) DM/PE/acetamino phen/doxylamine (WQ-ZH-EGXQIH/D M-JCJIOJ-JNSMSY M ORAL) LI-XN-WQ-APAP &AJ-HIEXQ-DB- APAP TABLET THERAPY PACK : Take by mouth. - Oral 025 Discontinued(T herapy completed) gabapentin (NEURONTIN) 100 mg capsule Take 2 Capsules by mouth daily. 10/16/19 24 025 Discontinued(T herapy completed) insulin glargine (Lantus Solostar U-100 Insulin) 100 unit/mL (3 mL) injection pen 10 Units at bedtime. 10/15/19 24 025 Discontinued(D ose adjustment) lactulose (CHRONULAC) solution Take 15-30 mL by mouth daily (with breakfast). 09/04/19 23 025 Discontinued(T herapy completed) spironolactone (ALDACTONE) 50 mg tablet Take 1 Tablet by mouth daily. 04/17/20 22 025 Discontinued(T herapy completed) cyanocobalamin (VITAMIN B-12) 1,000 mcg tablet TAKE 1 TABLET BY MOUTH EVERY DAY 02/20/20 22 025 Discontinued(T herapy completed) calcium carbonate-vitam in D3 600 mg-5 mcg (200 unit) per tablet Take 1 Tab by mouth 2 times daily. 06/04/20 18 025 Discontinued(T herapy completed) mv-min/iron/fol ic/calcium/vitK (WOMEN'S MULTIVITAMIN ORAL) Take 1 Tab by mouth daily. 12/29/19 025 Discontinued(T herapy completed) amoxicillin (AMOXIL) 500 mg capsule Take 4 capsules (2,000 mg total) by mouth 1 (one) time. 07/22/20 025 Discontinued(T herapy completed) estradioL (ESTRACE) 0.01 % (0.1 mg/gram) vaginal cream .5 gm appy digitally to vagina three times weekly 10/05/19 025 Discontinued(T herapy completed) fluticasone propionate (FLONASE) 50 mcg/actuation nasal spray Administer into affected nostril(s). 025 Discontinued(T herapy completed) folic acid (FOLVITE) 1 mg tablet Take 1 tablet (1,000 mcg total) by mouth 1 (one) time each day. 06/09/20 025 Discontinued(T herapy completed) insulin detemir (LEVEMIR) 100 unit/mL injection Inject 14 Units under the skin at bedtime. 025 Discontinued(T herapy completed) losartan (COZAAR) 25 mg tablet Take 1 tablet (25 mg total) by mouth 1 (one) time each day. 02/23/20 025 Discontinued(T herapy completed) traMADoL (ULTRAM) 50 mg tablet Take 1 tablet (50 mg total) by mouth every 12 (twelve) hours if needed for severe pain. for pain Max Daily Amount: 100 mg 56 tablet 10/10/19 025 Discontinued traMADoL (ULTRAM) 50 mg tablet TAKE 1 TABLET BY MOUTH EVERY 12 HOURS IF NEEDED FOR SEVERE PAIN 56 tablet 11/08/19 025 Discontinued(D uplicate order) omeprazole (PriLOSEC) [address] capsule Take 1 capsule (40 mg total) by mouth 2 (two) times a day. Do not crush or chew. 025 Discontinued Active Problems Problem Noted Date Diagnosed Date [...] try going for an MRI at the [facility] in [place]. I feel like she is describing more [...] today and she will be seeing her statue carver in the near future and she will discuss this with him then. 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); Schatzki's ring of distal esophagus; Nausea; Constipation, unspecified constipation type 11/17/2024 Telephone Adult [address] [phone] Michelle Chamorro PharmD 11/17/2024 Telephone Gastroenterology [facility] [address] [place] [address] Arlene Beard PA provider call back 11/11/2024 Nurse Triage Adult [address] [phone] Renny Ramirez MD Fatigue 10/31/2024 Nurse Triage Adult [address] [phone] Renny Ramirez MD Constipation 10/21/2024 Telephone Adult Medicine [address] [phone] Gaby Bruner RN 10/04/2024 10:50 AM EST Office Visit [facility] [address] [place] [phone] Braydon Puri MD LBBB (left bundle branch block) (Primary Dx); Coronary artery disease due to lipid rich plaque; Prosthetic aortic valve failure; Stage 3b chronic kidney disease (CMS/HCC); Obesity (BMI 30.0-34.9) 09/08/2024 11:00 AM EST Office Visit [address] [phone] Renny Ramirez MD Type 2 diabetes mellitus [...] (Fluzone; Afluria) 6mo and older 06/12/2014,06/20/2013,05/11/2012,07/01,08/05/2010,05/22/2009,08/02/2008 ,06/01/2007,08/05/2006 Intern SARS-CoV-2 COVID-19, mRNA, LNP-S, preservative free 07/31/2021 Pneumococcal conjugate 13 va lent (Prevnar 13, PCV13) 2mo and older 04/08/2017 Pneumococcal polysaccharide 23 valent (Pneumovax 23) 2yo and older 05/20/2019,01/11/2007 Td Tetanus diptheria (Tdvax) 7yo and older 05/03/2007 Surgical History Surgery Date Site/Laterality Comments SECTION PROCEDURE: AL DELIVERY ONLY ROTATOR CUFF REPAIR 08/24/2002 PROCEDURE: [...] ue to lipid rich plaque Dilated cardiomyopathy ([facility]) 12/01/2022 DX:Dilated cardiomyopathy (HCC) Atrial fibrillation ([facility]) 03/22/2018 DX :Atrial fibrillation (HCC) Stage 3b chronic kidney dise ase ([facility]) 06/25/2023 DX:Stage 3b chronic kidney d isease ([facility]) Bilateral carpal tunnel syndrome 08/14/2018 DX:Bilateral carpal [...] Record ed Within the last 3 months, ho w many times did you visit the emergency [...] for your loved ones. For example, child and adolescent psychiatrist or elderly care for an older adult? [...] Sign Reading Time Taken Comments Blood Pressure 98/56 11/21/2024 11:19 AM EDT Pulse 58 10/04/2024 10:39 AM EST Temperature 36.8 ??C (98.2 ??F) 09/08/2024 11:[address] Respiratory Rate 14 09/08/2024 11:15 AM EST Oxygen Saturation 96% 10/04/2024 10:39 AM EST Inhaled Oxygen Concentration - - Weight 93.4 kg (206 lb) 11/21/2024 11:19 AM EDT Height 172.7 cm (5' 8 ) 11/21/2024 11:19 AM EDT Body Mass Index 31.32 11/21/2024 11:19 AM EDT Plan of Treatment Upcoming Encounters Date Type Department Care Team (Late st Contact Info) Description 12/06/2024 10:30 AM EDT Office Visit Adult Medicine [address] [phone] Renny Ramirez MD [address] [place] [address] 12/22/2024 1:00 PM EDT Office Visit Orthopedic Surgery - [place] [address] [phone] Rogers Walter, DPM [address] [address] 03/01/2025 1:00 PM EDT Appointment Radiology Department - [address] [phone] 03/02/2025 11:10 AM EDT Office Visit Gastroenterology - [place] [address] [facility] [address] [facility] [address] [phone] Arlene Beard PA [address] [address] 03/17/2025 1:00 PM EDT Office Visit Adult Medicine [address] [phone] Renny Ramirez MD [address] [place] [address] Health Maintenance Due Date Last Done Comments Diabetes: Annual Foot Exam 01/13/1950 Diabetes: Annual Retina Eye Exam 01/13/1950 Zoster Vaccines (1 of 2) 01/13/1992 DTaP,Tdap,and Td Vaccines (2 - Td or Tdap) 05/03/2017 05/03/2007 Diabetes: Annual Urine Albumin-Creatinine Ratio (uACR) 04/08/2024 04/08/2023 COVID-19 Vaccine ( season) 2024 05/26/2023, 07/31/2021, 12/07/2020, Additional history exists Falls Risk Assessment 08/18/2024 08/18/2023 Depression Screening 03/02/2025 03/02/2024 Medicare Annual Wellness Visit 03/02/2025 03/02/2024 Diabetes: Blood Sugar Control Test (HGBA1C) 03/08/2025 09/08/2024, 06/08/2024, 03/02/2024, Additional history exists Influenza Vaccine (Season Ended) 2025 05/26/2023, 07/10/2022, 06/12/2021, Additional history exists Diabetes: Annual GFR (Glomerular Filtration Rate) 09/08/2025 09/08/2024, 06/08/2024, 03/02/2024, Additional history exists Hypertension/CHF/CAD Annual BMP Blood Test 09/08/2025 09/08/2024, 06/08/2024, 03/02/2024, Additional history exists Social Influencers of Health Screening 11/24/2025 11/24/2024 Cholesterol Screening (Lipid Panel) 09/08/2029 09/08/2024, 03/02/2024, 03/02/2024 Osteoporosis Screening (Bone Density Screening) 02/11/2031 02/11/2021, 09/22/2017 Pneumococcal Vaccine: 50+ Years Completed 05/20/2019, 04/08/2017, 01/11/2007 RSV Immunization Adult Patients Completed 05/26/2023 HIB Vaccines Aged Out No [...] disease, with long-term current use of insulin ([facility]) LIPID PANEL WITH REFLEX TO DIRECT LDL Routine 09/08/2024 12:02 PM EST Pure hypercholesterolemia COMPREHENSIVE METABOLIC PANEL Routine 09/08/2024 12:02 PM EST Type 2 diabetes mellitus with stage 4 chronic kidney disease, with long-term current use of insulin ([facility]) Encounter for long-term (current) use of medications DEPRESSION SCREENING Routine 03/02/2024 FALLS RISK ASSESSMENT [...] GEMUSE QTc 440 ms GEMUSE P Wave [place] 5 degrees GEMUSE R [place] -26 degrees GEMUSE T [place] 81 degrees GEMUSE ECG Interpretation Sinus bradycardia [...] AM EST 10/04/2024 11:37 AM EST us Braydon Puri MD ECG ORDERABLES Final Result GEMUSE * (ABNORMAL) Lipid panel with reflex to direct LDL (09/08/2024 12:02 PM EST) Cholesterol 153 0 - 200 mg/dL LAB CHEMISTRY METHOD 09/08/2024 5:20 PM [facility] Triglycerides 168(H) 0 - 150 mg/dL LAB CHEMISTRY METHOD 09/08/2024 5:20 PM [facility] HDL 52 >=40 mg/dL LAB CHEMISTRY METHOD 09/08/2024 5:20 PM [facility] LDL Calculated 67 0 - 100 mg/dL LAB CHEMISTRY METHOD 09/08/2024 5:20 PM [facility] VLDL Cholesterol Paul 33.6 mg/dL LAB CHEMISTRY METHOD 09/08/2024 5:20 PM [facility] Non HDL Chol. (LDL+VLDL) 101 <145 mg/dL LAB CHEMISTRY METHOD 09/08/2024 5:20 PM [facility] Chol/HDL Ratio 2.9 0.0 - 4.4 LAB CHEMISTRY METHOD 09/08/2024 5:20 PM [facility] Blood Venous blood specimen / Unknown Venipuncture / Unknown 09/08/2024 12:02 PM EST 09/08/2024 12:02 PM EST us Renny Ramirez MD LAB BLOOD ORDERABLES Final Resu lt Performing Organization Address [facility]/ZIP Co de Phone Number [facility] [address] [place] [address], [place] [phone] * Hemoglobin A1c (09/08/2024 12:02 PM EST) Pathologist [facility] Hemoglobin A1C 5.7 <6.5 % LAB CHEMISTRY METHOD 09/08/2024 8:51 PM EST [facility] Mean Bld Glu Estim. 117 mg/dL LAB CHEMISTRY METHOD 09/08/2024 8:51 PM EST [facility] Blood Venous blood specimen / Unknown Venipuncture / Unknown 09/08/2024 12:02 PM EST 09/08/2024 12:02 PM EST us Renny Ramirez MD LAB BLOOD ORDERABLES Final Resu lt Performing Organization Address [facility]/ZIP Co de Phone Number [facility] [address] [place] [address], [place] [phone] * (ABNORMAL) Comprehensive metabolic panel (09/08/2024 12:02 PM EST) [facility] Sodium 141 133 - 145 mmol/L LAB CHEMISTRY METHOD 09/08/2024 5:20 PM EST [facility] Potassium 4.7 3.5 - 5.5 mmol/L LAB CHEMISTRY METHOD 09/08/2024 5:20 PM EST [facility] Chloride 111(H) 96 - 110 mmol/L LAB CHEMISTRY METHOD 09/08/2024 5:20 PM EST [facility] CO2 25 21 - 32 mmol/L LAB CHEMISTRY METHOD 09/08/2024 5:20 PM EST [facility] Anion Gap 5 3 - 11 LAB CHEMISTRY METHOD 09/08/2024 5:20 PM [facility] Glucose 114(H) 70 - 100 mg/dL LAB CHEMISTRY METHOD 09/08/2024 5:20 PM [facility] BUN 18 5 - 25 mg/dL LAB CHEMISTRY METHOD 09/08/2024 5:20 PM [facility] Creatinine 1.67(H) 0.50 - 1.10 mg/dL LAB CHEMISTRY METHOD 09/08/2024 5:20 PM [facility] eGFR 30(L) >=60 mL/min/1. 73m2 LAB CHEMISTRY METHOD 09/08/2024 5:20 PM [facility] Comment:Calculation based on the??Chronic Kidney Disease Epidemiology Collaboration (CKD-EPI) equation refit??without adjustment for race. BUN/Creatinine Ratio 10.8 LAB CHEMISTRY METHOD 09/08/2024 5:20 PM [facility] Calcium 9.0 8.5 - 10.5 mg/dL LAB CHEMISTRY METHOD 09/08/2024 5:20 PM [facility] AST (SGOT) 19 10 - 42 unit/L LAB CHEMISTRY METHOD 09/08/2024 5:20 PM [facility] ALT (SGPT) 13 10 - 60 unit/L LAB CHEMISTRY METHOD 09/08/2024 5:20 PM [facility] Alkaline Phosphatase 87 42 - 121 unit/L LAB CHEMISTRY METHOD 09/08/2024 5:20 PM [facility] Total Protein 5.9(L) 6.0 - 8.0 g/dL LAB CHEMISTRY METHOD 09/08/2024 5:20 PM [facility] Albumin 2.9(L) 3.2 - 5.0 g/dL LAB CHEMISTRY METHOD 09/08/2024 5:20 PM [facility] Total Bilirubin 0.3 0.0 - 1.4 mg/dL LAB CHEMISTRY METHOD 09/08/2024 5:20 PM EST [facility] Blood Venous blood specimen / Unknown Venipuncture / Unknown 09/08/2024 12:02 PM EST 09/08/2024 12:02 PM EST us Renny Ramirez MD LAB BLOOD ORDERABLES Final Resu lt [facility] [address] [place] [address], * Depression Screening (03/02/2024) Depression Screening Abstracted Historical Provider MD HEALTH MAINTENANCE Final Result * Falls Risk Assessment (08/18/2023) Pathologist [facility] Falls Risk Assessment Abstracted Historical Provider HEALTH MAINTENANCE Final Result * Urine Albumin Creatinine Ratio (04/08/2023) Urine Albumin Creatinine Ratio Abstracted Historical Provider [...] (World Health Organization Fracture Risk Assessment) [facility] Department of Internal Medicine recommends using National [...] (World Health Organization Fracture Risk Assessment) [facility] Department of Internal Medicine recommendsusing National Osteoporosis [...] fracture risk by FRAX. Renny Ramirez MD IM DXA PROCEDURES Final Result from Last 3 Months or Most Recently Relevant to Health Maintenance Insurance MEDICARE [facility] Care Teams Watch Inspector Relationship Specialty Start Date End Date Renny Ramirez MD [address] [place] [id number] PCP - General Internal Medicine 02/14/20
--- OUTSIDE RECORDS SUMMARY | 2024-11-26 12:41 | XMS_ITS | Encounter Summary ---
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); Schatzki's ring of distal esophagus; Nausea; Constipation, unspecified constipation type Social History Tobacco Use Types Packs/Day Years [...] ed Within the last 3 months, frederic w many times did you visit the [...] Pressure 98/56 11/21/2024 11:19 AM EDT Pulse - - Temperature - - Respiratory Rate - - Oxygen Saturation - - Inhaled Oxygen Concentration - - Weight 93.4 kg (206 lb) 11/21/2024 11:19 AM EDT Height 172.7 cm (5' 8 ) 11/21/2024 11:19 AM EDT Body Mass Index 31.32 11/21/2024 11:19 AM EDT documented in this encounter Ordered Prescriptions Prescription Sig Dispense Quantity Refills Last Filled Start Date End Date linaCLOtide (LINZESS) 72 mcg capsule Take 1 capsule (72 mcg total) by mouth 1 (one) time each day before breakfast. 90 capsule 3 11/21/2024 pantoprazole (PROTONIX) 40 mg EC tablet Take 1 tablet (40 mg total) by mouth 2 (two) times a day. Do not crush, chew, or split. 180 each 3 11/21/2024 documented in this encounter Progress Notes * ELIF Long - 11/21/2024 11:10 AM EDT CHIEF COMPLAINT: Chief Complaint Patient presents with Constipation IDENTIFIER: Rosalba Aj is a 84 y.o. old female History of Present Illness The patient presents for evaluation of constipation, GERD, and Robb's esophagus. She is accompanied by her daughter. She was recently transported to the emergency room via ambulance due to suspected constipation. Abdominal x-ray revealed constipation, but no obstruction. She has been experiencing back discomfort, which she attributes to prolonged sitting. She has attempted to manage her constipation with lactulose, Benefiber, and MiraLAX, but these interventions have not been effective. During her hospital stay, she was diagnosed with metabolic acidosis and treated with sodium bicarbonate. She also has a history of chronic kidney disease and is under the care of a market risk manager, Dr. Gomez. A consultation with a market risk manager was conducted during her hospital stay. She has an upcoming appointment with her market risk manager at the end of 11/2024. She has been prescribed Zofran for nausea, which she has not needed for the past 3 to 4 months. However, she experienced vomiting the day before her hospital admission and took a dose of Zofran. She continues to take omeprazole 40 mg twice daily, which she finds beneficial, particularly the nighttime dose. If she forgets to take it before bed, she experiences a sour taste in her mouth upon waking, which resolves within 20 to 30 minutes of taking the medication. ROS: GENERAL: No malaise, significant weight loss or fever HEENT: No changes in hearing or vision, nose bleeds or other nasal problems NECK: No lumps, goiter, pain or significant neck swelling RESPIRATORY: No cough, wheezing or shortness of breath CARDIOVASCULAR: No chest pain, leg swelling or palpitations GI: See HPI. MUSCULOSKELETAL: No joint pain or swelling, back pain, or muscle pain. SKIN: No lesions, rash or itching NEURO: No persistent headache, syncope, seizures, weakness or numbness PAST MEDICAL HISTORY: Past Medical History: Diagnosis Date Aortic stenosis, moderate 12/28/2017 DX:Aortic stenosis, moderate; COMMENT: Aortic valve replacement, 25 mm tissue valve, CABG ??2, 02/08/2018. Atrial fibrillation (CMS/HCC) 03/22/2018 DX:Atrial fibrillation (HCC) Bilateral carpal tunnel syndrome 08/14/2018 DX:Bilateral carpal tunnel syndrome Coronary artery disease due to lipid rich plaque 12/28/2017 DX:Coronary artery disease due to lipid rich plaque Dilated cardiomyopathy (CMS/HCC) 12/01/2022 DX:Dilated cardiomyopathy (HCC) Essential hypertension, benign DX:Essential hypertension, benign Lumbar spinal stenosis 05/31/2008 DX:Lumbar spinal stenosis Obesity, unspecified 11/18/2005 DX:Obesity, unspecified Osteoporosis 04/08/2017 DX:Osteoporosis; COMMENT: T score -3.8, left hip, 03/29/2013. Other and unspecified hyperlipidemia 11/18/2005 DX:Other and unspecified hyperlipidemia S/P aortic valve replacement with bioprosthetic valve 12/25/2020 DX:S/P aortic valve replacement with bioprosthetic valve Stage 3b chronic kidney disease (CMS/HCC) 06/25/2023 DX:Stage 3b chronic kidney disease ([facility]) Type II or unspecified type diabetes mellitus without mention of complication, not stated as uncontrolled 11/18/2005 DX:Type II or unspecified type diabetes mellitus without mention of complication, not stated as uncontrolled Past Surgical History: Procedure Laterality Date AORTIC VALVE REPLACEMENT PROCEDURE: HISTORICAL AORTIC VALVE REPL CATARACT EXTRACTION PROCEDURE: HISTORICAL CATARACT REMOVAL SECTION PROCEDURE: GA DELIVERY ONLY ROTATOR CUFF REPAIR 08/24/2002 PROCEDURE: HISTORICAL ROTATOR CUFF REPAIR; COMMENT: right SOCIAL HISTORY: Social History Tobacco Use Smoking status: Never Smokeless tobacco: Never Substance Use Topics Alcohol use: No FAMILY HISTORY: Family History Problem Relation Name Age of Onset Heart attack Mother 74.00 Heart attack Father Diabetes Brother x 1 Breast cancer Neg Hx MEDICATIONS DISCONTINUED/REORDERED: Medications Discontinued During This Encounter Medication Reason omeprazole (PriLOSEC) [address] capsule ACTIVE MEDICATIONS: Current Outpatient Medications Medication Sig Dispense Refill acetaminophen (TYLENOL) 500 mg tablet Take 6 tablets (3,000 mg total) by mouth 1 (one) time each day. aspirin 81 mg chewable tablet CHEW 1 TABLET BY MOUTH EVERY DAY blood sugar diagnostic (Lendsquareuch Verio test strips) test strip USE TO TEST BLOOD SUGAR TWICE A DAY cetirizine (ZyrTEC) 10 mg tablet TAKE 1 TABLET BY MOUTH EVERY DAY docusate sodium (COLACE) 100 mg capsule Take 1 capsule (100 mg total) by mouth 1 (one) time each day. empagliflozin (Jardiance) 10 mg tablet Take 1 tablet (10 mg total) by mouth 1 (one) time each day in the morning. insulin glargine (Lantus Solostar U-100 Insulin) 100 unit/mL (3 mL) injection pen Inject 6 Units under the skin at bedtime. metoprolol succinate (TOPROL-XL) 50 mg 24 hr tablet Take 1 tablet (50 mg total) by mouth 1 (one) time each day. Do not crush or chew. 90 each 3 ondansetron (ZOFRAN) 4 mg tablet Take 1 Tablet by mouth every 8 hours as needed for Nausea. pen needle, diabetic 32 gauge x 5/32 needle Use to inject insulin once daily rosuvastatin (CRESTOR) 40 mg tablet Take 1 Tablet by mouth at bedtime. solifenacin (VESICARE) 5 mg tablet TAKE 1 TABLET BY MOUTH EVERY DAY traMADoL (ULTRAM) 50 mg tablet Take 1 tablet (50 mg total) by mouth every 12 (twelve) hours if needed for severe pain. for pain Max Daily Amount: 100 mg 56 tablet 0 linaCLOtide (LINZESS) 72 mcg capsule Take 1 capsule (72 mcg total) by mouth 1 (one) time each day before breakfast. 90 capsule 3 pantoprazole (PROTONIX) 40 mg EC tablet Take 1 tablet (40 mg total) by mouth 2 (two) times a day. Do not crush, chew, or split. 180 each 3 No current facility-administered medications for this visit. ALLERGIES: Allergies Allergen Reactions Atorvastatin Calcium liver problems Diphtheria-Tetanus Toxoids Ped Other Reaction(s): OTHER Swelling injection site/years ago Levofloxacin vomiting PHYSICAL EXAM: Visit Vitals BP 98/56 (BP Location: Right arm, Patient Position: Sitting, BP Cuff Size: Adult) Ht 1.727 m (68 ) Wt 93.4 kg (206 lb) BMI 31.32 kg/m?? OB Status Postmenopausal Smoking Status Never BSA 2.07 m?? APPEARANCE: Alert and in no acute distress, ambulates with a walker NEURO: Awake, alert and oriented x 3 with symmetrical reflexes Physical Exam IMAGING: Narrative & Impression [facility] Diagnostic Imaging Department [address] [place] [address] Patient: ROSALBA AJ /Age/Sex: 1940 - 84 - F Unit#: [id number] Location/Status: SPDIGEN/REG CLI Mnemonic/Ordering Site: [facility] Ordering Physician: ARLENE BEARD CR UGI W Air Routine - 04/06/24928 Report Status:Signed FINDINGS: Double contrast UGI performed. Exam somewhat limited due to patient's inability to lay prone. COMPARISON: CT abdomen and pelvis April 24, 2023 HISTORY: Patient is an 84-year-old female with history of GERD. Nausea. ASSET PROTECTION MANAGER radiographs: Cloth Hand AP radiograph of the abdomen obtained. Bowel gas pattern is nonobstructive. There is a moderate amount of stool visualized in the ascending colon. There is levoscoliosis of the lumbar spine with moderate to severe bony degenerative changes. Visualized lung bases appear clear. Sternotomy wires are present. FINDINGS: Effervescent crystals were administered orally. Thick and thin barium was then administered orally under fluoroscopic control. Esophagus: Moderate esophageal dysmotility as demonstrated by break in the primary peristaltic wave and slow transit of contrast down the esophagus. Normal distensibility and mucosal pattern. There is no evidence of obstruction or hiatal hernia. Stomach: Normal distensibility and motility. Prompt passage of contrast from the stomach into the duodenal bulb and sweep. There is a mucosal outpouching projecting right anterolaterally from the gastric fundus, gastric diverticulum versus ulceration. Visualization of proximal small bowel is within normal limits. Gastroesophageal reflux: None DAP: 26.82 Gycm^2 Exam performed and dictated by: Mona Correa PA-C Supervising physician: Diony Dawson MD IMPRESSION: Limited exam due to patient inability to lie fully prone. 1. 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 Recommend direct visualization with endoscopy. 2. Moderate esophageal dysmotility. Dictating Physician: DIONY DAWSON MD Electronically Signed by: DIONY DAWSON MD Dic Date/Time: 04/06/24 1043 Sign date/Time: 04/06/24 1124 IMPRESSION: 1. 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 Schatzki's ring of distal esophagus 3. Nausea 4. Constipation, unspecified constipation type PLAN: 84 years old female whose past medical history includes type 2 diabetes with peripheral circulatorydisorder, diabetes with renal manifestations and ophthalmologic manifestation, as well as, neurological manifestations, hypertension, aortic stenosis, CAD, A-fib, hyperlipidemia, GERD, cholelithiasis, microalbuminuria, CTS, onychomycosis, lumbar spinal stenosis, osteoporosis, primary osteoarthritisof both knees, history of aortic valve replacement, recently has been hospitalized for metabolic acidosis, electrolyte imbalances, will follow-up with market risk manager. There was also constipation. In the past GI work up included: Upper GI series done on 04/06/2024 showed gastric mucosal outpouching from the gastric fundus there is question of gastric diverticulum versus ulceration. They did recommend endoscopy. There was also moderate esophageal dysmotility. Subsequently had a endoscopy that showed irregular Z-line, Schatzki's ring (status post dilatation), gastric diverticulum. Biopsy was positive for Robb's esophagus. No dysplasia. Assessment & Plan 1. Constipation. A prescription for Linzess 72 mcg, a low dose to avoid severe diarrhea, will be provided for a 90-day supply. She is advised to increase her fiber and water intake. If there are issues with insurancecoverage for Linzess, she should contact the office for alternative options. 2. Robb's Esophagus/Schatzki's ring, GERD. She has been diagnosed with Robb's esophagus and chronic inflammation due to long-standing acid reflux. She is currently on omeprazole 40 mg twice daily, which helps manage her symptoms. Due to her chronic kidney disease, a switch to pantoprazole 40 mg twice daily will be made. A prescription for a 90-day supply of pantoprazole will be sent to [facility] pharmacy in [place]. At some point, the dosage may be reduced to once daily, and Pepcid may be added if needed. Long- term antiacid medication is necessary to protect her esophagus from further damage from acid. Note, Pt has Chronic Kidney Disease Stage 3. She has chronic kidney disease stage 3 and is under the care of a market risk manager. Her sodium levels were low during her recent hospitalization, leading to a hold on spironolactone and Lasix. She has anupcoming appointment with her market risk manager at the end of November 2024 to discuss her kidney function and electrolyte management. Follow-up The patient will follow up in 3 to 4 months. Total time of today's encounter is 35 minutes in preparing to see the patient, reviewing labs, diagnostic studies as well as other provider notes, documenting and charting, creating an HPI, performing a medically appropriate exam as well as counseling patient. There was documentation in EMR after visit. None of which time was spend performing separately billable procedures or ancillary services. [facility] [address] [address] documented in this encounter Plan of Treatment Upcoming Encounters Date Type Department Care Team (Late st Contact Info) Description 12/06/2024 10:30 AM EDT Office Visit Adult Medicine [facility] - [address] [address] Renny Ramirez MD [address] [place] [address] 12/22/2024 1:00 PM EDT Office Visit Orthopedic Surgery - [place] [address] [address] Rogers Walter DPM [address] [address] 03/01/2025 1:00 PM EDT Appointment Radiology Department - [address] [address] 03/02/2025 11:10 AM EDT Office Visit Gastroenterology - [address] [address] Arlene Beard PA [address] [place] [address] 03/17/2025 1:00 PM EDT Office Visit Adult Medicine [facility] [address] [place] [address] Renny Ramirez MD [address] [place] [address] documented as of this encounter Visit Diagnoses Diagnosis 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 Do not crush or chew. 11/21/2024 documented as of this encounter Care Teams Proctologist Relationship Specialty Start Date End Date Renny Ramirez MD [address] [place] [id number] PCP - General Internal Medicine 02/14/20 documented as of this encounter
--- OUTSIDE RECORDS SUMMARY | 2024-11-26 12:41 | XMS_ITS ---
Author Organization [facility] Address [address] [place] [address] Care Team Providers Care Dye House Vat Worker Name Role Phone Renny Ramirez MD Primary Care Provider [phone] Chronic Care Management Status:Ongoing (Active) Start date:11/16/2024 Enrollment date:11/24/2024 Enrollment reason:Referred by Care Team Case Team Name Relationship Phone Sofi Chandra RN Care Manager(Responsible Staff) Continued Care and Services Coordination
[2024-11-26 12:42] VITALS: BP 130/70; PULSE 90; TEMP 36.7; O2SAT 96
--- NOTE | 2024-11-26 12:42 | MHC.OFFWIV ---
Intake Vital Signs 11/26/24 12:42 Height 5 ft 8 in BMI Reason not done Patient refused/unable BP 130/70 Blood Pressure Location Lt brachial Position Sitting Pulse 90 Pulse Source Pulse Oximeter Temp 98.0 F Temp Source Oral Pulse Oximetry (%) 96 Oxygen Delivery Method Room Air Intake Visit Reasons: WARE SERVER-Rt leg infection? Patient Tobacco Use Status: Never used Tobacco Allergies adhesive [BANDAGE,ADHESIVE] Allergy (Unknown, Verified 11/26/24 13:07) TOOK OFF THE SKIN empagliflozin [From Synjardy] Allergy (Verified 11/26/24 13:07) Unknown levofloxacin [From LEVAQUIN] Adverse Reaction (Unknown, Verified 11/26/24 13:07) VOMITING atorvastatin [From Lipitor] Adverse Reaction (Verified 11/26/24 13:07) Unknown Medication List - Last Reconciled 11/26/24 by Natacha Pro, AIRCRAFT MAINTENANCE ENGINEER- aspirin 1 tab PO DAILY blood sugar diagnostic (OneTouch Verio test strips) As directed cetirizine 10 mg PO DAILY docusate sodium (Colace) 100 mg PO DAILY empagliflozin 10 mg PO DAILY insulin glargine (Lantus Solostar U-100 Insulin) 8 units subcut BEDTIME linaclotide (Linzess) 72 mcg PO QAM metoprolol succinate ER 50 mg PO DAILY omeprazole 40 mg PO BID pantoprazole 40 mg PO BID pen needle, diabetic (BD Sophia 2nd Gen Pen Needle) As directed polyethylene glycol 3350 (Miralax) 17 grams PO DAILY potassium chloride ER 20 mEq PO DAILY rosuvastatin 40 mg PO BEDTIME sodium bicarbonate 650 mg PO BID solifenacin 5 mg PO DAILY spironolactone 50 mg PO DAILY tramadol 50 mg PO BID PRN vitamins A,C,F-tdxp-gqybxc 2,148 mcg-113 mg-45 mg-17.4mg (PreserVision AREDS) 2 tabs PO BID Do you need a note to return to daycare/school/sports/work: No HPI HPI Comments History of Present Illness Details History of Present Illness Here today w/ Dtr Tanisha 84-year-old female with CKD, diabetes type 2, CHF here today with concerns of infection her right leg. She was recently discharged from [facility] November 15 for DINO on CKD related to GI volume loss. She was discharged home with the discontinuation of her spironolactone and her Lasix. Her discharge labs were reviewed. GFR was improving in the 30s. K was mildly low at 3.2. She was prescribed potassium supplementation which she has completed. She notes worsening of edema in bilateral lower extremities since discharge home. She also started with redness of the right anterior lower leg a few days ago. The redness is worse since onset. She denies any fever or chills. She did not have topical mupirocin at home of what she did apply. She has follow up with renal scheduled and her primary care is Dr. Ramirez at [facility] Discussion Notes I recommended initiating doxycycline due to its effectiveness and safety in patients with her renal concerns. I counseled on the importance of restarting spironolactone, albeit at a reduced dose to minimize renal strain. We discussed the importance of elevating her legs and continuing to wear compression stockings to manage swelling effectively. I suggested limiting salt intake to further assist in reducing edema. We also talked through the necessity for close monitoring of her renal function and potassium levels while on spironolactone. The importance of contacting her primary care provider, Dr. Ramirez, was emphasized for continuity of care. If symptoms worsen or she develops a fever, I advised immediate reevaluation. Patient Instructions - Start doxycycline as prescribed and follow the dosing schedule. - Elevate legs whenever possible to manage swelling. - Continue wearing compression stockings daily. - Reduce salt intake to assist in managing leg swelling. - Monitor for infections such as fever or worsening symptoms, and contact healthcare if these occur. - Follow up with primary care as planned. Consent Patient was informed and verbally consented to the use of an ambient scribe for clinic note documentation during this visit. Total time spent caring for the patient today was 30 minutes. This includes time spent before the visit reviewing the chart, time spent during the visit, and time spent after the visit on documentation, reviewing laboratory results, diagnostic imaging, medications, performing a medically necessary evaluation, counseling on diagnoses, care coordination, ordering appropriate tests, ordering appropriate medications, review of tests performed by other providers, reporting test results with the patient, communication with other healthcare providers. Exam: Awake alert NAD Speaking in full sentences RLE neurovasc intact, see image below. + erythema w/ warmth. + 1 edema w/ some weeping affecting BLE RLE: [facility] Medical History (Updated 11/26/24 @ 13:21 by Natacha Pro, [facility]) CAD (coronary artery disease) Constipation GERD (gastroesophageal reflux disease) Insulin dependent type 2 diabetes mellitus Surgical History H/O aortic valve replacement H/O repair of rotator cuff History of knee surgery Family History Mother Heart disease Hypertension Father Heart disease Hypertension Daughter Diabetes Kidney transplanted Social History Household Members: Children Household Members Other:: daughter Housing: House Do you presently have visiting nurse or other home services: Yes Alcohol intake: never Comment: Rare Patient Tobacco Use Status: Never used Tobacco service: No Physical Exam Vital Signs: Last Vital Signs Temp 98.0 F 11/26/24 12:42 Pulse 90 11/26/24 12:42 BP 130/70 11/26/24 12:42 Pulse Ox 96 11/26/24 12:42 Oxygen Delivery Method Room Air 11/26/24 12:42 Assessment & Plan Assessment & Plan (1) Cellulitis of right lower extremity: Code(s): L03.115 - Cellulitis of right lower limb (2) CKD stage 3a, GFR 45-59 ml/min: Code(s): N18.31 - Chronic kidney disease, stage 3a (3) CHF (congestive heart failure): Code(s): I50.9 - Heart failure, unspecified Qualifiers: Heart failure type: unspecified Heart failure chronicity: unspecified Qualified Code(s): I50.9 - Heart failure, unspecified Plan . Medications: New doxycycline hyclate 100 mg PO BID 7 days 14 caps 0RF spironolactone 25 mg PO DAILY 30 tabs 0RF Discontinued potassium chloride ER Discontinued Reason: Patient Completed Course 20 mEq PO DAILY 3 tabs 0RF Coding Level of Care Code Est Pt Level 4 (69173) Diagnoses Cellulitis of right lower extremity L03.115 CKD stage 3a, GFR 45-59 ml/min N18.31 Congestive heart failure, unspecified HF chronicity, unspecified heart failure type I50.9 Heart failure type: unspecified Heart failure chronicity: unspecified
== END 2024-11-26 13:34 | disposition home or self-care (01) ==
LOC: HO.HMCWIC 12:38
PROVIDERS: PCP Internal Medicine; Visit Provider Nurse Practitioner Family
DX: L03.115 Cellulitis of right lower limb (principal); N18.31 Chronic kidney disease, stage 3a; I50.9 Heart failure, unspecified

== ENCOUNTER → 2024-11-26 12:38 | Outpatient (BNVA) | payer MEDICARE, OTHER, SELFPAY | PROVIDERS: PCP Internal Medicine; Visit Provider Nurse Practitioner Family | DX: E11.22 Type 2 diabetes mellitus with diabetic chronic kidney disease (principal); N18.31 Chronic kidney disease, stage 3a; I50.9 Heart failure, unspecified; L03.115 Cellulitis of right lower limb | CPT/HCPCS: 99212 ==

== ENCOUNTER 2024-11-30 13:48 | Outpatient (AMB) | payer MEDICARE, OTHER, SELFPAY ==
--- NOTE | 2024-11-30 13:58 | HO.NEPHOV_ITS ---
Vital Signs 11/30/24 14:00 Height 5 ft 8 in Weight 215 lb 2 oz BMI 32.7 BP 104/50 L Blood Pressure Location Lt brachial Position Sitting Pulse 61 Pulse Source Pulse Oximeter Pulse Oximetry (%) 97 Oxygen Delivery Method Room Air Intake Visit Reasons: Per MD Restaurant Hospitality Manager Required: No Accompanied by: Daughter Allergies adhesive [BANDAGE,ADHESIVE] Allergy (Unknown, Verified 11/30/24 14:00) TOOK OFF THE SKIN empagliflozin [From Synjardy] Allergy (Verified 11/30/24 14:00) Unknown levofloxacin [From LEVAQUIN] Adverse Reaction (Unknown, Verified 11/30/24 14:00) VOMITING atorvastatin [From Lipitor] Adverse Reaction (Verified 11/30/24 14:00) Unknown HPI Comments Details: Jessica was seen in follow up for CKD . She recently had hospitalization with DINO on CKD. Her Spironolactone was reduced to 25 mg from 50 mg daily. She is 84 years of age with H/O CKD as well as CAD needing cardiac surgery. She has long standing DM as well hypertension with CKD. Her serum creatinine last year was 1.6 which is currently stable . She denies chest pain, SOB, PND, orthopnea, edema, orthostatic symptoms, new bone or back pain, regular NSAID intake, renal calculi, new skin rashes, photosensitivity, epistaxis, joint swellings, hematuria or hypoglycemias. She claims to be compliant with her medications. She denies any symptoms of CVA, CHF, symptoms of PAD. She had RLE cellulitis and has been on Doxy. Her Lantus has been on hold. Her lasix and NaHCO3 has been discontinued. [facility] Medical History (Updated 11/26/24 @ 13:21 by Natacha Pro, [facility]) Constipation CAD (coronary artery disease) GERD (gastroesophageal reflux disease) Insulin dependent type 2 diabetes mellitus Surgical History History of knee surgery H/O repair of rotator cuff H/O aortic valve replacement Family History Mother Heart disease Hypertension Father Heart disease Hypertension Daughter Diabetes Kidney transplanted Social History Household Members: Children Household Members Other:: daughter Housing: House Do you presently have visiting nurse or other home services: Yes Alcohol intake: never Comment: Rare Patient Tobacco Use Status: Never used Tobacco service: No Review of Systems Const All systems reviewed & are unremarkable except as noted in HPI and below Physical Exam Vital Signs: Last Vital Signs Pulse 61 11/30/24 14:00 BP 104/50 L 11/30/24 14:00 Pulse Ox 97 11/30/24 14:00 Oxygen Delivery Method Room Air 11/30/24 14:00 BMI result Body Mass Index 32.7 Const General: comfortable and no acute distress Orientation/consciousness: patient oriented x3 HEENT Head: Yes normocephalic Mouth: Normal oral and palatal mucosa present Eyes EOM: EOMs intact bilaterally Neck Neck: Yes supple Resp Auscultation: clear to auscultation bilaterally Cardio Jugular venous distension: no JVD Rate: regular rate GI Palpation (GI): Soft to palpation Auscultation: normal bowel sounds General: Yes no CVA tenderness Back/Spine/Pelvis Back: no CVA tenderness Skin General skin exam: no rashes or lesions noted Neuro General: patient oriented x3 and moves all extremities Extrem General: Yes no pedal edema Results Reviewed Nephrology Results: Hgb 11.0 g/dl (12.0-16.0) L 11/12/24 WBC 7.6 X10*3/uL (4.8-10.8) 11/12/24 Plt Count 147 X10*3/uL (160-400) L 11/12/24 Sodium 143 mmol/L (135-145) 11/15/24 Potassium 3.2 mmol/L (3.3-5.1) L 11/15/24 Chloride 121 mmol/L (96-108) H 11/15/24 Carbon Dioxide 19 mmol/L (22-29) L 11/15/24 BUN 20 mg/dL (9-16) H 11/15/24 Creatinine 1.67 mg/dL (0.5-1.4) H 11/15/24 Calcium 8.2 mg/dL (8.4-10.2) L 11/15/24 Urine Protein 100 (2+) mg/dL (Neg-Trace) H 11/11/24 Assessment & Plan Assessment & Plan (1) CKD stage 3a, GFR 45-59 ml/min: Code(s): N18.31 - Chronic kidney disease, stage 3a Category: Medical (2) Hypertension: Code(s): I10 - Essential (primary) hypertension Category: Medical Qualifiers: Hypertension type: primary hypertension Qualified Code(s): I10 - Essential (primary) hypertension Plan 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 She has good urine output. She recently had DINO , most likely due to tubular injury which has improved & her renal function is back to baseline . She can continue on Jardiance 10 mg daily. She should maintain good hydration and avoids NSAID's. No changes made. She has hypokalemia and is on Spironolactone. Follow up blood work ordered. Follow up given in 2 months Orders: Orders Creatinine 2 Months I10 - Essential (primary) hypertension, N18.31 - Chronic kidney disease, stage 3a Blood Urea Nitrogen 2 Months I10 - Essential (primary) hypertension, N18.31 - Chronic kidney disease, stage 3a Electrolytes 2 Months I10 - Essential (primary) hypertension, N18.31 - Chronic kidney disease, stage 3a Coding Level of Care Code Est Pt Level 4 (02534) Diagnoses CKD stage 3a, GFR 45-59 ml/min N18.31 Primary hypertension I10 Hypertension type: primary hypertension
[2024-11-30 14:00] VITALS: BP 104/50; PULSE 61; O2SAT 97; BMI 32.7
--- OUTSIDE RECORDS SUMMARY | 2024-11-30 16:01 | XMS_ITS | Encounter Summary ---
Author Organization [facility] Address [address] [place] [address] Care Team Providers Care Copy Center Specialist Name Role Phone Renny Ramirez MD Primary Care Provider [phone] Reason for Visit * Reason Onset Date Comments provider call back 11/17/2024 Encounter Details Date Type Department Care Team (Late st Contact Info) Description 11/17/2024 Telephone Gastroenterology - [place] 175 [facility] [address] [facility] [address] [place] [address] Arlene Beard PA [address] [facility] [address] [place], [place] [phone] provider call back Social History Tobacco Use [...] 11/17/2024 1:16 PM EDT Records received from [facility], placed in Awa's folder for review * Leticia Guevara MA - 11/17/2024 12:02 PM EDT [facility] * Sarah Ohara - 11/17/2024 10:21 AM EDT Patient was admitted to [facility] 11/11 to 11/15 for chronic constipation. Patient wanted to inform Awa so she can discuss this at her upcoming appt 3/31. Please advise. documented in this encounter Plan of Treatment Upcoming Encounters Date Type Department Care Team (Late st Contact Info) Description 12/06/2024 10:30 AM EDT Office Visit Adult [address] [phone] Renny Ramirez MD [address] [place] [address] 12/22/2024 1:00 PM EDT Office Visit Orthopedic Surgery - [place] [address] [phone] Rogers Walter DPM [address] [address] 03/01/2025 1:00 PM EDT Appointment Radiology Department - [address] [phone] 03/02/2025 11:10 AM EDT Office Visit Gastroenterology - [address] [phone] Arlene Beard PA 175 [facility] 200 [place] [address] 03/17/2025 1:00 PM EDT Office Visit [address] [phone] Renny Ramirez MD [address] [place] [address] 04/20/2025 2:40 PM EDT Office Visit [facility] - [facility] [address] [phone] Anna Obando, DILLON [address] [address] documented as of this encounter Visit Diagnoses Not on filedocumented in this encounter Care Teams Copy Center Specialist Relationship Specialty Start Date End Date Renny Ramirez MD [address] [place] [address] PCP - General Internal Medicine 02/14/20 documented as of this encounter
--- OUTSIDE RECORDS SUMMARY | 2024-11-30 16:01 | XMS_ITS ---
Author Organization [facility] Address [address] [place] [address] Care Team Providers Care Superintendent Operations Division Name Role Phone Renny Ramirez MD Primary Care Provider Chronic Care Management Status:Ongoing (Active) Start date:11/16/2024 Enrollment date:11/24/2024 Enrollment reason:Referred by Care Team Case Team Name Relationship Phone Sofi Chandra RN Care Manager(Responsible Staff) Continued Care and Services Coordination
--- OUTSIDE RECORDS SUMMARY | 2024-11-30 16:01 | XMS_ITS | Encounter Summary ---
Author Organization [facility] Address [address] [place] [address] Care Team Providers Care Live Truck Technician Name Role Phone Renny Ramirez MD Primary Care Provider [phone] Reason for Visit * Reason Onset Date Comments medication update 11/29/2024 Encounter Details Date Type Department Care Team (Late st Contact Info) Description 11/29/2024 Telephone [facility] - [facility] [address] 300 [facility] 154 [place] [phone] Braydon Lujan MD 300 [facility] 101 [place] [address] medication update Social History Tobacco Use Types Packs/Day Years [...] for your loved ones. For example, child care centre manager or elderly care for an older adult? [...] as of this encounter Progress Notes * Sachi Munson RN - 11/29/2024 2:31 PM EDT Spoke with pt, her legs were swollen and weeping she went to urgent care they put her on antibiotics and Spironolactone 25 mg daily. Pt has informed Nephrology and they will be monitoring prescription and doing refills for Spironolactone. Spironolactone added to med module FYI Dr Lujan Pt wanted you to know her updated med list * Sarah Jori - 11/29/2024 1:46 PM EDT The patient called back to update medication changes. She was recently seen at urgent care and was prescribed Doxycycline 100 mg, twice a day for 7 days and Spironolactone 25 mg daily. Her Outer Diameter Technician also changed her omeprazole to pantoprazole 40 mg twice a day and put her on Linzest 72 mcgdaily. She can be reached at [phone] if needed. documented in this encounter Plan of Treatment Upcoming Encounters Date Type Department Care Team (Late st Contact Info) Description 12/06/2024 10:30 AM EDT Office Visit Adult Medicine [address] [phone] Renny Ramirez MD [address] [place] [address] 12/22/2024 1:00 PM EDT Office Visit Orthopedic Surgery - [place] [address] [phone] Rogers Walter DPM [address] [address] 03/01/2025 1:00 PM EDT Appointment Radiology Department - [address] [phone] 03/02/2025 11:10 AM EDT Office Visit Gastroenterology - [address] [phone] Arlene Beard PA 175 [facility] 200 [place] [address] 03/17/2025 1:00 PM EDT Office Visit Adult Medicine [facility] [address] [place] [address] Renny Ramirez MD [address] [place] [address] 04/20/2025 2:40 PM EDT Office Visit [facility] - [facility] [address] [phone] Anna Obando, DILLON [address] [address] documented as of this encounter Visit Diagnoses Not on filedocumented in this encounter Historical Medications * This list may reflect changes made after this encounter. spironolactone (ALDACTONE) 25 mg tablet Take 1 tablet (25 mg total) by mouth 1 (one) time each day. 11/28/2024 added in this encounter Care Teams Live Truck Technician Relationship Specialty Start Date End Date Renny Ramirez MD [address] [place] [phone] PCP - General Internal Medicine 02/14/20 documented as of this encounter
--- OUTSIDE RECORDS SUMMARY | 2024-11-30 16:01 | XMS_ITS | Clinical Summary ---
Author Organization [facility] Address 100 [facility] [address] [place] [address] Phone Care Team Providers Care Chronograph Operator Name Role Phone Renny Ramirez MD Primary Care Provider [phone] Allergies Active Allergy Reactions Criticality Noted Date [...] 1 (one) time each day 8 Active Golconda-3 Fatty Acids 1360 MG capsule Take by [...] 10/15/2022, 02/26/2022, Additional history exists Influenza Vaccine (Season Ended) 2025 07/10/2022, 06/12/2021, 06/15/2020, Additional history exists Pneumococcal Vaccine: [...] AM EST) Hemoglobin A1C 6.3(H) (4.0-5.6) % [facility] Comment: MONITORING: In known diabetic patients, hemoglobin A1c targets should be discussed with health care provider. DIAGNOSTIC USE: ??The [place] Diabetes Association (ADA) and the World Health [...] Supplement 1 Testing performed or reported by [facility], a Service of [facility], [address] [place] [address] Mike Purdy MD, Before School [facility]# [id number] Blood (Blood, Venous) 10/15/2022 11:30 AM EST 10/15/2022 11:32 AM EST Indra Rivera MD LAB BLOOD ORDERABLES Final Re sult [facility] from Last 3 Months or Most Recently Relevant to Health Maintenance Insurance [facility] Care Teams Chronograph Operator Relationship Specialty Start Date End Date Renny Ramirez MD PCP - General Internal Medicine 04/15/22
--- OUTSIDE RECORDS SUMMARY | 2024-11-30 16:01 | XMS_ITS | Clinical Summary ---
Author Organization [facility] Address [address] [place] [address] Care Team Providers Care Hospice Care Transitions Coordinator Name Role Phone Renny Ramirez MD Primary Care Provider [phone] Allergies Active Allergy Reactions Criticality Noted Date [...] breakfast. 90 capsule 3 11/22/19 25 Active spironolactone (ALDACTONE) 25 mg tablet Take 1 tablet (25 mg total) by mouth 1 (one) time each day. 11/29/19 25 Active furosemide (LASIX) 20 mg tablet [...] daily. 025 Discontinued(T herapy completed) DM/PE/acetamino phen/doxylamine (LT-SP-AMLSMW/D A-NMHQCY-PLXDZI M ORAL) SC-SD-QB-APAP &PV-RNYKK-SC- APAP TABLET THERAPY PACK : Take by [...] Take 1 Tab by mouth daily. 12/29/19 18 025 Discontinued(T herapy completed) amoxicillin (AMOXIL) 500 [...] try going for an MRI at the [facility] in [place]. I feel like she is describing more [...] today and she will be seeing her dicer operator in the near future and she will discuss this with him then. She has a history of chronic kidney disease stage IIIb, so I will defer to her dicer operator to determine whether this is appropriate to [...] Encounters Date Type Department Care Team Description 11/29/2024 Telephone [facility] - [facility] 154 300 [facility] 154 [place] [phone] Braydon Puri MD medication update 11/24/2024 Telephone Adult Medicine [address] [phone] Michelle Chamorro, PharmD patient outreach 11/21/2024 11:10 AM EDT Office Visit Gastroenterology [facility] 175 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 [address] [phone] Arlene Beard PA provider call back 11/11/2024 Nurse Triage Adult Medicine [address] [phone] Renny Ramirez MD Fatigue 10/31/2024 Nurse Triage Adult Medicine [address] [phone] Renny Ramirez MD Constipation 10/21/2024 Telephone Adult Medicine [address] [phone] Gaby Bruner RN 10/04/2024 10:50 AM EST Office Visit [facility] - [facility] [address] 300 [facility] [address] [place] [address] Braydon Puri MD LBBB (left bundle branch block) (Primary Dx); Coronary artery disease due to lipid rich plaque; Prosthetic aortic valve failure; Stage 3b chronic kidney disease (CMS/HCC); Obesity (BMI 30.0-34.9) 09/08/2024 11:00 AM EST Office Visit Adult Medicine [facility] 444 [place] [phone] Renny Ramirez MD Type 2 diabetes mellitus [...] History Surgery Date Site/Laterality Comments SECTION PROCEDURE: IA DELIVERY ONLY ROTATOR CUFF REPAIR 08/24/2002 PROCEDURE: [...] ue to lipid rich plaque Dilated cardiomyopathy ([facility]/HCC) 12/01/2022 DX:Dilated cardiomyopathy (HCC) Atrial fibrillation ([facility]/HCC) 03/22/2018 DX :Atrial fibrillation (HCC) Stage 3b [...] 10:30 AM EDT Office Visit Adult Medicine [address] [phone] Renny Ramirez MD [address] [place] [address] 12/22/2024 1:00 PM EDT Office Visit Orthopedic Surgery [facility] [address] [phone] Rogers Walter, GLEN [address] [address] 03/01/2025 1:00 PM EDT Appointment Radiology Department - [address] [phone] 03/02/2025 11:10 AM EDT Office Visit Gastroenterology [facility] [address] [phone] Arlene Beard PA 175 [facility] 200 [place] [address] 03/17/2025 1:00 PM EDT Office Visit Adult Medicine [facility] 444 [place] [address] Renny Ramirez MD 444 [place] [address] 04/20/2025 2:40 PM EDT Office Visit [facility] - [facility] [address] 300 [facility] 102 [place] [phone] Anna Obando, DILLON 300 [facility] 102 [place], [place] [phone] Health Maintenance Due Date Last Done Comments [...] age to complete this topic Meningococcal B Vaccine Aged Out No l onger eligible based on patient's age to complete [...] disease, with long-term current use of insulin ([facility]) LIPID PANEL WITH REFLEX TO DIRECT LDL Routine 09/08/2024 12:02 PM EST Pure hypercholesterolemia COMPREHENSIVE METABOLIC PANEL Routine 09/08/2024 12:02 PM EST Type 2 diabetes mellitus with stage 4 chronic kidney disease, with long-term current use of insulin ([facility]) Encounter for long-term (current) use of medications [...] GEMUSE QTc 440 ms GEMUSE P Wave [place] 5 degrees GEMUSE R [place] -26 degrees GEMUSE T [place] 81 degrees GEMUSE ECG Interpretation Sinus bradycardia [...] LAB CHEMISTRY METHOD 09/08/2024 5:20 PM EST [facility] Triglycerides 168(H) 0 - 150 mg/dL LAB CHEMISTRY METHOD 09/08/2024 5:20 PM EST [facility] HDL 52 >=40 mg/dL LAB CHEMISTRY METHOD 09/08/2024 5:20 PM [facility] LDL Calculated 67 0 - 100 mg/dL LAB CHEMISTRY METHOD 09/08/2024 5:20 PM [facility] VLDL Cholesterol Paul 33.6 mg/dL LAB CHEMISTRY METHOD 09/08/2024 5:20 PM [facility] Non HDL Chol. (LDL+VLDL) 101 <145 mg/dL LAB CHEMISTRY METHOD 09/08/2024 5:20 PM [facility] Chol/HDL Ratio 2.9 0.0 - 4.4 LAB CHEMISTRY METHOD 09/08/2024 5:20 PM [facility] Blood Venous blood specimen / Unknown Venipuncture / Unknown 09/08/2024 12:02 PM EST 09/08/2024 12:02 PM EST us Renny Ramirez MD LAB BLOOD ORDERABLES Final Resu lt [facility] [address] [place] [address], [place] [phone] * Hemoglobin A1c (09/08/2024 12:02 PM EST) Hemoglobin A1C 5.7 <6.5 % LAB CHEMISTRY METHOD 09/08/2024 8:51 PM EST [facility] Mean Bld Glu Estim. 117 mg/dL LAB CHEMISTRY METHOD 09/08/2024 8:51 PM EST [facility] Blood Venous blood specimen / Unknown Venipuncture / Unknown 09/08/2024 12:02 PM EST 09/08/2024 12:02 PM EST us Renny Ramirez MD LAB BLOOD ORDERABLES Final Resu lt [facility] [address] [place] [address], [place] [phone] * (ABNORMAL) Comprehensive metabolic panel (09/08/2024 12:02 PM EST) Sodium 141 133 - 145 mmol/L LAB CHEMISTRY METHOD 09/08/2024 5:20 PM [facility] Potassium 4.7 3.5 - 5.5 mmol/L LAB CHEMISTRY METHOD 09/08/2024 5:20 PM [facility] Chloride 111(H) 96 - 110 mmol/L LAB CHEMISTRY METHOD 09/08/2024 5:20 PM [facility] CO2 25 21 - 32 mmol/L LAB CHEMISTRY METHOD 09/08/2024 5:20 PM [facility] Anion Gap 5 3 - 11 LAB CHEMISTRY METHOD 09/08/2024 5:20 PM [facility] Glucose 114(H) 70 - 100 mg/dL LAB CHEMISTRY METHOD 09/08/2024 5:20 PM [facility] BUN 18 5 - 25 mg/dL LAB CHEMISTRY METHOD 09/08/2024 5:20 PM [facility] Creatinine 1.67(H) 0.50 - 1.10 mg/dL LAB CHEMISTRY METHOD 09/08/2024 5:20 PM [facility] eGFR 30(L) >=60 mL/min/1. 73m2 LAB CHEMISTRY METHOD 09/08/2024 5:20 PM [facility] Comment:Calculation based on the??Chronic Kidney Disease Epidemiology Collaboration (CKD-EPI) equation refit??without adjustment for race. BUN/Creatinine Ratio 10.8 LAB CHEMISTRY METHOD 09/08/2024 5:20 PM [facility] Calcium 9.0 8.5 - 10.5 mg/dL LAB CHEMISTRY METHOD 09/08/2024 5:20 PM [facility] AST (SGOT) 19 10 - 42 unit/L LAB CHEMISTRY METHOD 09/08/2024 5:20 PM [facility] ALT (SGPT) 13 10 - 60 unit/L LAB CHEMISTRY METHOD 09/08/2024 5:20 PM EST [facility] Alkaline Phosphatase 87 42 - 121 unit/L LAB CHEMISTRY METHOD 09/08/2024 5:20 PM [facility] Total Protein 5.9(L) 6.0 - 8.0 g/dL LAB CHEMISTRY METHOD 09/08/2024 5:20 PM EST [facility] Albumin 2.9(L) 3.2 - 5.0 g/dL LAB CHEMISTRY METHOD 09/08/2024 5:20 PM [facility] Total Bilirubin 0.3 0.0 - 1.4 mg/dL LAB CHEMISTRY METHOD 09/08/2024 5:20 PM [facility] Blood Venous blood specimen / Unknown Venipuncture / Unknown 09/08/2024 12:02 PM EST 09/08/2024 12:02 PM EST Renny Ramirez MD LAB BLOOD ORDERABLES Final Resu lt [facility] [address] [place] [address], * Depression Screening (03/02/2024) Depression Screening Abstracted Historical Provider HEALTH MAINTENANCE Final Result * Falls Risk Assessment (08/18/2023) Falls Risk Assessment Abstracted Historical Provider HEALTH MAINTENANCE Final Result * Urine Albumin Creatinine Ratio (04/08/2023) Pathologist [facility] Urine Albumin Creatinine Ratio Abstracted Historical Provider HEALTH MAINTENANCE Final Result [...] (World Health Organization Fracture Risk Assessment) [facility] Department of Internal Medicine recommends using National [...] (World Health Organization Fracture Risk Assessment) [facility] Department of Internal Medicine recommendsusing National Osteoporosis [...] Recently Relevant to Health Maintenance Insurance MEDICARE [facility] Care Teams Hospice Care Transitions Coordinator Relationship Specialty Start Date End Date Renny Ramirez MD [address] [place] [address] PCP - General Internal Medicine 02/14/20
--- OUTSIDE RECORDS SUMMARY | 2024-11-30 16:01 | XMS_ITS ---
Author Organization [facility] Address [address] [place] [address] Care Team Providers Care Automotive Technician Name Role Phone Renny Ramirez MD Primary Care Provider [phone] Transitional Care Management Status:Ongoing (Active) Start date:11/15/2024 Enrollment date:11/16/2024 Enrollment reason:Identified using hospital discharge data Case Team Name Relationship Phone Isela Nicholas LPN Care Manager(Responsible Staf f) Continued Care and Services Coordination
== END 2024-11-30 14:41 | disposition home or self-care (01) ==
LOC: HO.HKA 13:48
PROVIDERS: PCP Internal Medicine; Visit Provider Internal Medicine Nephrology
DX: N18.31 Chronic kidney disease, stage 3a (principal); I10 Essential (primary) hypertension
CPT/HCPCS: 99214

== ENCOUNTER → 2024-11-30 13:48 | Outpatient (BNVA) | payer MEDICARE, OTHER, SELFPAY | PROVIDERS: PCP Internal Medicine; Visit Provider Internal Medicine Nephrology | DX: I25.10 Atherosclerotic heart disease of native coronary artery without angina pectoris (principal); I12.9 Hypertensive chronic kidney disease with stage 1 through stage 4 chronic kidney disease, or unspecified chronic kidney disease; N18.31 Chronic kidney disease, stage 3a | CPT/HCPCS: 99212 ==

== ENCOUNTER 2025-02-07 09:30 | Outpatient (REF) | payer MEDICARE, OTHER, SELFPAY ==
[2025-02-07 09:53] LABS: MANUAL DIFF FLAG NO
[2025-02-07 10:07] LABS: Basophils Percent Auto 0.4 % (0-2); Eosinophils Absolute Auto 0.3 X10*3/uL (0.0-0.4); Eosinophils Percent Auto 3.6 % (0-4); Hematocrit 35.9 % (37.0-47.0); Hemoglobin 11.1 g/dl (12.0-16.0); Imm Gran Abs Auto 0.02 X10*3/uL (0.00-0.03); Imm Gran Pct Auto 0.3 % (0.0-0.4); Lymphocytes Absolute Auto 1.9 X10*3/uL (1.2-4.9); Lymphocytes Percent Auto 26.9 % (20-40); Mean Corpuscular HGB Conc 30.9 g/dl (31.0-35.0); Mean Corpuscular Hemoglobin 29.9 pg (27.0-33.0); Mean Corpuscular Volume 96.8 fL (80.0-98.0); Mean Platelet Volume 10.6 fL (9.4-12.3); Monocytes Absolute Auto 0.7 X10*3/uL (0.1-1.2); Monocytes Percent Auto 9.3 % (2-11); Neutrophils Absolute Auto 4.1 x10*3/uL (2.0-8.3); Neutrophils Percent Auto 59.5 % (45-73); Platelet Count 177 X10*3/uL (160-400); Red Blood Count 3.71 X10*6/uL (4.20-5.50); Red Cell Distribution Width 14.1 % (11.0-16.0)
--- OUTSIDE RECORDS SUMMARY | 2025-02-07 10:18 | XMS_ITS | Clinical Summary ---
Author Organization [facility] Address [address] [facility] [address] [place] [address] Phone Care Team Providers Care Manufacturing Engineering Technologist Name Role Phone Renny Ramirez MD Primary Care Provider [phone] Allergies Active Allergy Reactions Criticality Noted Date [...] 1 (one) time each day 8 Active [place]-3 Fatty Acids 1360 MG capsule Take by [...] 06/12/2021, 06/15/2020, Additional history exists Pneumococcal Vaccine: 50+ Years Completed 05/20/2019, 04/08/2017, 01/11/2007 Pneumococcal Vaccine: Peds (0 to 5 Years) and At-Risk Patients (6 to 49 Years) Discontinued 05/20/2019, 04/08/2017, 01/11/2007 Hepatitis B Vaccine Aged [...] AM EST) Hemoglobin A1C 6.3(H) (4.0-5.6) % [facility] Comment: MONITORING: In known diabetic patients, hemoglobin A1c targets should be discussed with health care provider. DIAGNOSTIC USE: ??The [place] Diabetes Association (ADA) and the World Health [...] Supplement 1 Testing performed or reported by [facility], a Service of [facility], [address] [place] [id number] Mike Purdy MD, Clinical Office Technician [facility]# [id number] Blood specimen (specimen) Venous blood / Unknown 10/15/2022 11:30 AM EST 10/15/2022 11:32 AM EST Indra Rivera MD LAB BLOOD ORDERABLES Final Re sult [facility] from Last 3 Months or Most Recently Relevant to Health Maintenance Insurance Medicare [facility] Medicare [facility] [place] [id number] Care Teams Manufacturing Engineering Technologist Relationship Specialty Start Date End Date Renny Ramirez MD PCP - General Internal Medicine 04/15/22
[2025-02-07 10:38] LABS: Anion Gap 12 (12-20); Blood Urea Nitrogen 31 mg/dL (9-16); Calcium 9.6 mg/dL (8.4-10.2); Carbon Dioxide 22 mmol/L (22-29); Chloride 112 mmol/L (96-108); Estimated Glomerular Filt Rate 23; Iron 54 mcg/dL (30-160); Percent Iron Saturation 21 % (15-50); Phosphorus 4.1 mg/dL (2.7-4.5); Potassium 5.4 mmol/L (3.3-5.1); Sodium 141 mmol/L (135-145); Total Iron Binding Capacity 258 mcg/dL (228-428); Unsaturated Iron Binding 204 ug/dL
[2025-02-07 10:40] LABS: Parathyroid Hormone Intact 174.7 pg/mL (8.7-77.1)
[2025-02-07 10:53] LABS: Ferritin 64 ng/mL (10-250)
== END 2025-02-07 09:31 | disposition home or self-care (01) ==
LOC: HO.LAB 09:30
PROVIDERS: PCP Internal Medicine; Visit Provider Internal Medicine Nephrology
DX: I12.9 Hypertensive chronic kidney disease with stage 1 through stage 4 chronic kidney disease, or unspecified chronic kidney disease (principal); N18.31 Chronic kidney disease, stage 3a
CPT/HCPCS: 36415; 80051; 82310; 82565; 82728; 83540; 83970; 84100; 84520; 85025

== ENCOUNTER 2025-02-08 14:27 | Outpatient (AMB) | payer MEDICARE, OTHER, SELFPAY ==
--- NOTE | 2025-02-08 15:04 | HO.NEPHOV_ITS ---
Vital Signs 02/08/25 15:07 Height 5 ft 8 in Weight 204 lb BMI 31.0 BP 148/60 H Blood Pressure Location Rt brachial Position Sitting Pulse 54 Pulse Source Pulse Oximeter Pulse Oximetry (%) 99 Oxygen Delivery Method Room Air Intake Visit Reasons: 2 MO FU-[facility] Product Promoter Sales Person Required: No Accompanied by: Daughter Allergies adhesive (BANDAGE,ADHESIVE) Allergy (Unknown, Verified 02/08/25 15:07) TOOK OFF THE SKIN empagliflozin (From Synjardy) Allergy (Verified 02/08/25 15:07) Unknown levofloxacin (From LEVAQUIN) Adverse Reaction (Unknown, Verified 02/08/25 15:07) VOMITING atorvastatin (From Lipitor) Adverse Reaction (Verified 02/08/25 15:07) Unknown HPI Comments Details: Jessica was seen in follow up for CKD . She is 84 years of age with H/O CKD as well as CAD needing cardiac surgery. She has long standing DM as well hypertension with CKD. Her serum creatinine last year was 1.6 which is currently stable . She denies chest pain, SOB, PND, orthopnea, edema, orthostatic symptoms, new bone or back pain, regular NSAID intake, renal calculi, new skin rashes, photosensitivity, epistaxis, joint swellings, hematuria or hypoglycemias. She claims to be compliant with her medications. She denies any symptoms of CVA, CHF, symptoms of PAD. Her serum creatinine has gone up from baseline [facility] Medical History (Updated 02/08/25 @ 15:14 by Narinder Garcia MD) Constipation CAD (coronary artery disease) GERD (gastroesophageal reflux disease) Insulin dependent type 2 diabetes mellitus Surgical History History of knee surgery H/O repair of rotator cuff H/O aortic valve replacement Family History Mother Heart disease Hypertension Father Heart disease Hypertension Daughter Diabetes Kidney transplanted Social History Household Members: Children Household Members Other:: daughter Housing: House Do you presently have visiting nurse or other home services: Yes Alcohol intake: never Comment: Rare Patient Tobacco Use Status: Never used Tobacco service: No Review of Systems Const All systems reviewed & are unremarkable except as noted in HPI and below Physical Exam Vital Signs: Last Vital Signs Pulse 54 02/08/25 15:07 BP 148/60 H 02/08/25 15:07 Pulse Ox 99 02/08/25 15:07 Oxygen Delivery Method Room Air 02/08/25 15:07 BMI result Body Mass Index 31.0 Const General: comfortable and no acute distress Orientation/consciousness: patient oriented x3 HEENT Head: Yes normocephalic Mouth: Normal oral and palatal mucosa present Eyes EOM: EOMs intact bilaterally Neck Neck: Yes supple Resp Auscultation: clear to auscultation bilaterally Cardio Jugular venous distension: no JVD Rate: regular rate GI Palpation (GI): Soft to palpation Auscultation: normal bowel sounds General: Yes no CVA tenderness Back/Spine/Pelvis Back: no CVA tenderness Skin General skin exam: no rashes or lesions noted Neuro General: patient oriented x3 and moves all extremities Extrem General: Yes no pedal edema Results Reviewed Nephrology Results: Hgb, (12.0-16.0) 11.1 g/dl L 02/07/25 WBC, (4.8-10.8) 7.0 X10*3/uL 02/07/25 Plt Count, (160-400) 177 X10*3/uL 02/07/25 Sodium, (135-145) 141 mmol/L 02/07/25 Potassium, (3.3-5.1) 5.4 mmol/L H Δ 02/07/25 Chloride, (96-108) 112 mmol/L H 02/07/25 Carbon Dioxide, (22-29) 22 mmol/L 02/07/25 BUN, (9-16) 31 mg/dL H 02/07/25 Creatinine, (0.5-1.4) 2.08 mg/dL H 02/07/25 Calcium, (8.4-10.2) 9.6 mg/dL Δ 02/07/25 Phosphorus, (2.7-4.5) 4.1 mg/dL 02/07/25 PTH Intact, (8.7-77.1) 174.7 pg/mL H 02/07/25 Urine Protein, (Neg-Trace) 100 (2+) mg/dL H 11/11/24 Assessment & Plan Assessment & Plan (1) CKD stage 3a, GFR 45-59 ml/min: Code(s): N18.31 - Chronic kidney disease, stage 3a Category: Medical (2) Hypertension: Code(s): I10 - Essential (primary) hypertension Category: Medical Qualifiers: Hypertension type: primary hypertension Qualified Code(s): I10 - Essential (primary) hypertension (3) DINO (acute kidney injury): Code(s): N17.9 - Acute kidney failure, unspecified Category: Medical Plan Jessica has DINO from tubular injury. SHe has CKD 3 from vascular disease, DM and hypertension. She has good urine output. I reduced her Spironolactone 12.5 mg daily. She can continue on Jardiance 10 mg daily. I asked her to increase hydration for now. She should avoid NSAID's.Follow up blood work ordered in 1 M Orders: Orders Creatinine 3 Weeks N17.9 - Acute kidney failure, unspecified Blood Urea Nitrogen 3 Weeks N17.9 - Acute kidney failure, unspecified Electrolytes 3 Weeks N17.9 - Acute kidney failure, unspecified Coding Level of Care Code Est Pt Level 4 (41599) Diagnoses CKD stage 3a, GFR 45-59 ml/min N18.31 Primary hypertension I10 Hypertension type: primary hypertension DINO (acute kidney injury) N17.9
[2025-02-08 15:07] VITALS: BP 148/60; PULSE 54; O2SAT 99; BMI 31.0
--- OUTSIDE RECORDS SUMMARY | 2025-02-08 16:36 | XMS_ITS | Clinical Summary ---
Author Organization [facility] Address [address] [facility] [address] [place] [address] Phone Care Team Providers Care Barrel Cap Setter Name Role Phone Renny Ramirez MD Primary Care Provider [phone] Allergies Active Allergy Reactions Criticality Noted Date [...] 1 (one) time each day 8 Active [place]-3 Fatty Acids 1360 MG capsule Take by [...] valve replacement, 25 mm tissue valve, CABG 2, 02/08/2018. Chest pain 08/26/2017 Overview (04/15/2022): Normal [...] AM EST) Hemoglobin A1C 6.3(H) (4.0-5.6) % [facility] Comment: MONITORING: In known diabetic patients, hemoglobin A1c targets should be discussed with health care provider. DIAGNOSTIC USE: The [place] Diabetes Association (ADA) and the World Health [...] Supplement 1 Testing performed or reported by [facility], a Service of [facility], [address] [place] [id number] Mike Purdy MD, Ramp Service Employee [facility]# [id number] Blood specimen (specimen) Venous blood / Unknown 10/15/2022 11:30 AM EST 10/15/2022 11:32 AM EST Indra Rivera MD LAB BLOOD ORDERABLES Final Re sult [facility] from Last 3 Months or Most Recently Relevant to Health Maintenance Insurance Medicare [facility] Medicare [facility] [place] [id number] Care Teams Barrel Cap Setter Relationship Specialty Start Date End Date Renny Ramirez MD PCP - General Internal Medicine 04/15/22
== END 2025-02-08 15:48 | disposition home or self-care (01) ==
LOC: HO.HKA 14:28
PROVIDERS: PCP Internal Medicine; Visit Provider Internal Medicine Nephrology
DX: N18.31 Chronic kidney disease, stage 3a (principal); I10 Essential (primary) hypertension; N17.9 Acute kidney failure, unspecified
CPT/HCPCS: 99214

== ENCOUNTER → 2025-02-08 14:27 | Outpatient (BNVA) | payer MEDICARE, OTHER, SELFPAY | PROVIDERS: PCP Internal Medicine; Visit Provider Internal Medicine Nephrology | DX: I12.9 Hypertensive chronic kidney disease with stage 1 through stage 4 chronic kidney disease, or unspecified chronic kidney disease (principal); N18.31 Chronic kidney disease, stage 3a; N17.9 Acute kidney failure, unspecified | CPT/HCPCS: 99212 ==

== ENCOUNTER 2025-03-07 10:04 | Outpatient (REF) | payer MEDICARE, OTHER, SELFPAY ==
--- OUTSIDE RECORDS SUMMARY | 2025-03-07 11:04 | XMS_ITS | Clinical Summary ---
Author Organization [facility] Address [address] [facility] [address] [place] [address] Phone Care Team Providers Care Gas Engine Operator Name Role Phone Renny Ramirez MD Primary Care Provider [phone] Allergies Active Allergy Reactions Criticality Noted Date [...] 1 (one) time each day 8 Active [place]-3 Fatty Acids 1360 MG capsule Take by [...] 02/26/2022, Additional history exists Influenza Vaccine (#1) 2025 2, 06/12/2021, 06/15/2020, Additional history exists Pneumococcal [...] AM EST) Hemoglobin A1C 6.3(H) (4.0-5.6) % [facility] Comment: MONITORING: In known diabetic patients, hemoglobin A1c targets should be discussed with health care provider. DIAGNOSTIC USE: The [place] Diabetes Association (ADA) and the World Health [...] Supplement 1 Testing performed or reported by [facility], a Service of [facility], [address] [place] [id number] Mike Purdy MD, Manager Garage [facility]# [id number] Blood specimen (specimen) Venous blood / Unknown 10/15/2022 11:30 AM EST 10/15/2022 11:32 AM EST Indra Rivera MD LAB BLOOD ORDERABLES Final Re sult [facility] from Last 3 Months or Most Recently Relevant to Health Maintenance Insurance Medicare [facility] Medicare [facility] [place] [id number] Care Teams Gas Engine Operator Relationship Specialty Start Date End Date Renny Ramirez MD PCP - General Internal Medicine 04/15/22
[2025-03-07 11:05] LABS: Anion Gap 10 (12-20); Blood Urea Nitrogen 34 mg/dL (9-16); Carbon Dioxide 22 mmol/L (22-29); Chloride 114 mmol/L (96-108); Estimated Glomerular Filt Rate 29; Potassium 5.0 mmol/L (3.3-5.1); Sodium 141 mmol/L (135-145)
== END 2025-03-07 10:05 | disposition home or self-care (01) ==
LOC: HO.LAB 10:04
PROVIDERS: PCP Internal Medicine; Visit Provider Internal Medicine Nephrology
DX: N18.31 Chronic kidney disease, stage 3a (principal); I10 Essential (primary) hypertension
CPT/HCPCS: 36415; 80051; 82565; 84520

== ENCOUNTER 2025-03-08 15:25 | Outpatient (AMB) | payer MEDICARE, OTHER, SELFPAY ==
--- OUTSIDE RECORDS SUMMARY | 2025-03-08 15:40 | XMS_ITS | Clinical Summary ---
Author Organization [facility] Address [address] [facility] [address] [place] [address] Phone Care Team Providers Care Seed Service Advisor Name Role Phone Renny Ramirez MD Primary Care Provider [phone] Allergies Active Allergy Reactions Criticality Noted Date [...] 1 (one) time each day 8 Active [place]-3 Fatty Acids 1360 MG capsule Take by [...] AM EST) Hemoglobin A1C 6.3(H) (4.0-5.6) % [facility] Comment: MONITORING: In known diabetic patients, hemoglobin A1c targets should be discussed with health care provider. DIAGNOSTIC USE: The [place] Diabetes Association (ADA) and the World Health [...] Supplement 1 Testing performed or reported by [facility], a Service of [facility], [address] [place] [id number] Mike Purdy MD, Process Control Supervisor [facility]# [id number] Blood specimen (specimen) Venous blood / Unknown 10/15/2022 11:30 AM EST 10/15/2022 11:32 AM EST Indra Rivera MD LAB BLOOD ORDERABLES Final Re sult [facility] from Last 3 Months or Most Recently Relevant to Health Maintenance Insurance Medicare [facility] Medicare [facility] [place] [id number] Care Teams Seed Service Advisor Relationship Specialty Start Date End Date Renny Ramirez MD PCP - General Internal Medicine 04/15/22
--- OUTSIDE RECORDS SUMMARY | 2025-03-08 15:40 | XMS_ITS | Clinical Summary ---
Author Organization [facility] Address [address] [place] [address] Care Team Providers Care Spot Man Name Role Phone Renny Ramirez MD Primary Care Provider [phone] Allergies Active Allergy Reactions Criticality Noted Date Comments Atorvastatin Calcium 11/18/2005 liver problems Diphtheria-Tetanus Toxoids Ped 09/06/2009 Other Reaction(s): OTHER Swelling injection site/years ago Levofloxacin 11/18/2005 vomiting Medications aspirin 81 mg chewable tablet CHEW 1 TABLET BY MOUTH EVERY DAY 04/28/20 23 Active rosuvastatin (CRESTOR) 40 mg tablet Take 1 Tablet by mouth at bedtime. 10/16/19 24 Active solifenacin (VESICARE) 5 mg tablet TAKE 1 TABLET BY MOUTH EVERY DAY 03/09/20 24 Active blood sugar diagnostic (OneTouch Verio test strips) test strip USE TO TEST BLOOD SUGAR TWICE A DAY 03/09/20 24 Active acetaminophen (TYLENOL) 500 mg tablet Take 6 tablets (3,000 mg total) by mouth 1 (one) time each day. Active pen needle, diabetic 32 gauge x needle Use to inject insulin once daily 06/18/20 23 Active metoprolol succinate (TOPROL-XL) 50 mg 24 hr tablet Take 1 tablet (50 mg total) by mouth 1 (one) time each day. Do not crush or chew. 90 each 3 10/04/19 25 026 Active insulin glargine (Lantus Solostar U-100 Insulin) [...] 180 each 3 11/22/19 25 026 Active spironolactone (ALDACTONE) 25 mg tablet Take 1 tablet (25 mg total) by mouth 1 (one) time each day. 11/29/19 25 Active linaCLOtide (LINZESS) 72 mcg capsule Take 1 capsule (72 mcg total) by mouth 1 (one) time each day before breakfast. 90 capsule 3 12/15/19 25 Active docusate sodium (COLACE) 100 mg capsule Take 1 capsule (100 mg total) by mouth 1 (one) time each day. 30 capsule 3 12/15/19 25 Active cetirizine (ZyrTEC) 10 mg tablet TAKE 1 TABLET BY MOUTH EVERY DAY 90 tablet 1 12/31/19 25 Active traMADoL (ULTRAM) 50 mg tablet Take 1 tablet (50 mg total) by mouth every 12 (twelve) hours if needed for severe pain. for pain Max Daily Amount: 100 mg 56 tablet 02/07/20 25 Active Additional Information Patient taking differently:50 mg oral2 times daily, for pain, Reported on 03/02/2025 ondansetron (ZOFRAN) 4 mg tablet TAKE 1 TABLET BY MOUTH EVERY 8 HOURS NEEDED FOR NAUSEA 30 tablet 02/21/20 25 Active vit A/vit C/vit E/zinc/copper (PRESERVISION AREDS ORAL) Take by mouth. Act urbano ondansetron (ZOFRAN) 4 mg tablet Take 1 Tablet by mouth every 8 hours as needed for Nausea. 02/03/20 24 025 Discontinued Active Problems Problem Noted Date Diagnosed Date Prosthetic aortic valve failure 10/04/2024 LBBB (left bundle branch block) 10/04/2024 Dyspnea on exertion 07/14/2024 Low back pain 07/14/2024 Osteoarthritis 07/14/2024 Unsteady gait when walking 07/14/2024 Aortic valve stenosis 07/14/2024 Arteriosclerosis of coronary artery 07/14/2024 Spinal stenosis of lumbar region 07/14/2024 Obesity with body mass index 30 or greater 07/14 Thoracic compression fracture ([facility] V24, [facility] V28) 10/27/2023 Overview (06/02/2024): Last Assessment & Plan: [...] A1c 5 months ago was 7.0. Ms. Aj is at a point where she would be willing to try going for an MRI at the [facility] in [place]. I feel like she is describing more [...] tis 08/18/2023 Stage 3b chronic kidney disease ([facility] V24, [facility] V28) 06/25/2023 Palpitations 06/25/2023 CKD (chronic kidney disease) 06/25/2023 Dilated cardiomyopathy ([facility] V24, [facility] V28 ) 12/01/2022 Overview (06/02/2024): Last Assessment & Plan: [...] today and she will be seeing her vocational psychologist in the near future and she will discuss this with him then. She has a history of chronic kidney disease stage IIIb, so I will defer to her vocational psychologist to determine whether this is appropriate to [...] and renal disease with (congestive) heart failure ([facility] V24, [facility] V28) 04/15/2022 Osteoarthritis 04/15/2022 Acute nontraumatic kidney injury ([facility] V24) 0 04/15/2022 Stage 1 chronic kidney disease 04/15/2022 Coronary arteriosclerosis 04/15/2022 Gastroesophageal reflux disease 04/15/2022 Diabetes mellitus ([facility] V24, [facility] V28) History of aortic valve replacement 12/25/2020 Overview (07/14/2024): Last Assessment & Plan: Functioning normally on exam and via echo. Primary osteoarthritis of both knees 07/30/2020 Bilateral carpal tunnel syndrome 08/14/2018 Atrial fibrillation ([facility] V24, [facility] V28) 0 03/22/2018 Overview (06/02/2024): Last Assessment & Plan: [...] 25 mm tissue valve, CABG 2, 02/08/2018. Last Assessment & Plan: The patient [...] 25 mm tissue valve, CABG 2, 02/08/2018. Other chest pain 08/26/2017 Overview (06/02/2024): [...] left hip, 03/29/2013. Diabetes mellitus type 2 wit h neurological manifestations ([facility] V24, [facility] V28) 03/31/2016 Disorder of nervous system d ue to type 2 diabetes mellitus ([facility] V24, [facility] V28) 03/31/2016 Onychomycosis 09/10/2015 Obesity (BMI 30.0-34.9) 02/14/2014 Type 1 diabetes mellitus ([facility] V24, [facility] V 28) 02/14/2014 Overview (06/02/2024): Podiatry note 06/13/2008 Dr. Sparks. Type II or unspecified type diabetes mellitus with ophthalmic manifestations, uncontrolled(250.52) ([facility] V24, [facility] V28) 02/14/2014 Overview (06/02/2024): Cataract OU noted on outside eye exam 06/02/12 Dr. Russo. Morbid obesity ([facility] V24, [facility] V28) 2013 Overview (07/14/2024): BMI 43.76 on 01/30/14. Microalbuminuria [...] no changes today. 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 (Primary Dx); Schatzki's ring of distal esophagus; Nausea; Constipation, unspecified constipation type 03/01/2025 12:46 PM EDT - 03/01/2025 11:59 PM EDT Hospital Encounter Radiology Department - [address] [phone] Encounter for screening mammogram for breast cancer Discharge Disposition: Home or Self Care 02/28/2025 Telephone Adult Medicine [address] [phone] Renny Ramirez MD Appointment 12/22/2024 1:00 PM EDT Office Visit Orthopedic Surgery - [place] [address] [place] [phone] Rogers Walter, DPM Primary osteoarthritis of both feet (Primary Dx); Bursitis of both feet; Diabetic mononeuropathy simplex ([facility] V24, [facility] V28); Type II diabetes mellitus with peripheral circulatory disorder ([facility] V24, [facility] V28); Metatarsalgia of both feet 12/15/2024 Telephone Adult Medicine [address] [phone] Michelle Chamorro, Dolly Diabetes from Last 3 Months Immunizations Name Administration [...] History Surgery Date Site/Laterality Comments SECTION PROCEDURE: TX DELIVERY ONLY ROTATOR CUFF REPAIR 08/24/2002 PROCEDURE: [...] 25 mm tissue valve, CABG 2, 02/08/2018. Coronary artery disease due to lipid rich plaque 12/28/2017 DX:Coronary artery disease d ue to lipid rich plaque Dilated cardiomyopathy (CMS/ [facility] V24, CMS/HCC V28) 12/01/2022 DX:Dilated cardiomyopathy (H CC) Atrial fibrillation (CMS/HCC V24, CMS/HCC V28) 03/22/2018 DX:Atrial fibrillation (HCC) Stage 3b chronic kidney dise ase (CMS/HCC V24, CMS/HCC V28) 06/25/2023 DX:Stage 3b chronic kidney disease (HCC) Bilateral carpal tunnel syndrome 08/14/2018 DX:Bilateral [...] care for your loved ones. For example, children's service supervisor or elderly care for an older adult? [...] Sexual Orientation Not on file Obstetrics History Para Term AB IAB SAB Ectopic Multiple Livin g Live Births 2 2 2 2 Date Outcome GA Total Labor Labor/2nd/3rd Weight Sex Type Anes PTL Jolene A1 A5 Name Clin Term Term Last Filed Vital Signs Vital Sign Reading Time Taken Comments Blood Pressure 128/74 03/02/2025 11:07 AM EDT Pulse 58 03/02/2025 11:07 AM EDT Temperature 36.2 C (97.2 F) 12/06/2024 10:35 AM EDT Respiratory Rate 21 12/06/2024 10:35 AM EDT Oxygen Saturation 98% 03/02/2025 11:07 AM EDT Inhaled Oxygen Concentration - - Weight 95.4 kg (210 lb 6.4 oz) 03/02/2025 11:07 AM EDT Height 172.7 cm (5' 8 ) 03/02/2025 11:07 AM EDT Body Mass Index 31.99 03/02/2025 11:07 AM EDT Plan of Treatment Upcoming Encounters Date Type Department Care Team (Late st Contact Info) Description 03/09/2025 2:30 PM EDT Office Visit Adult Medicine [facility] [address] [place] [address] Renny Ramirez MD [address] [place] [address] 03/28/2025 10:30 AM EDT Office Visit Orthopedic Surgery - [place] [address] [facility] [address] [place] [phone] Rogers Walter, DPM [address] [address] 04/20/2025 2:40 PM EDT Office Visit [facility] [address] [facility] [address] [place] [phone] Anna Obando NP [address] [facility] [address] [place] [address] 10/04/2025 11:30 AM EST Office Visit Gastroenterology - [place] [address] [facility] 175 [facility] 200 [place] [phone] Arlene Beard PA 175 [facility] 200 [place] [address] Health Maintenance Due Date Last Done Comments Diabetes: Annual Foot Exam 01/13/1950 Diabetes: Annual Retina Eye Exam 01/13/1950 Zoster Vaccines (1 of 2) 1961 DTaP,Tdap,and Td Vaccines (2 - Td or Tdap) 05/03/2017 05/03/2007 Diabetes: Annual Urine Albumin-Creatinine Ratio (uACR) 04/08/2024 04/08/2023 COVID-19 Vaccine ( season) 2024 05/26/2023, 07/31/2021, 12/07/2020, Additional history exists Falls Risk Assessment 08/18/2024 08/18/2023 Depression Screening 03/02/2025 03/02/2024 Medicare Annual Wellness Visit 03/02/2025 03/02/2024 Diabetes: Blood Sugar Control Test (HGBA1C) 03/08/2025 09/08/2024, 06/08/2024, 03/02/2024, Additional history exists Influenza Vaccine (#1) 2025 , 07/10/2022, 06/12/2021, Additional history exists Social Influencers of Health Screening 11/24/2025 11/24/2024 Diabetes: Annual GFR (Glomerular Filtration Rate) 12/06/2025 12/06/2024, 09/08/2024, 06/08/2024, Additional history exists Hypertension/CHF/CAD Annual BMP Blood Test 12/06/2025 12/06/2024, 09/08/2024, 06/08/2024, Additional history exists Cholesterol Screening (Lipid Panel) [...] Procedure Name Priority Date/Time Associated Diagnosis Comments MG MAMMO DIGITAL SCREENING W KOSTA BILAT Routine 03/01/2025 1:12 PM EDT Encounter for screening mammogram for breast cancer BASIC METABOLIC PANEL Routine 12/06/2024 11:34 AM EDT Hypokalemia HEMOGLOBIN A1C Routine 09/08/2024 12:02 PM EST Type 2 diabetes mellitus with stage 4 chronic kidney disease, with long-term current use of insulin ([facility] V24, [facility] V28) LIPID PANEL WITH REFLEX TO DIRECT LDL Routine 09/08/2024 12:02 PM EST Pure hypercholesterolemia HM DEPRESSION SCREENING Routine 03/02/2024 FALLS RISK ASSESSMENT Routine 08/18/2023 URINE ALBUMIN CREATININE RATIO Routine 04/08/2023 DXA BONE DENSITY STUDY 1+ SITS AXIAL SKEL Routine 02/11/2021 2:18 PM EDT Age-related osteoporosis without current pathological fracture from Last 3 Months or Most Recently Relevant to Health Maintenance Results * MG Mammo Digital Screening w Kosta bilat (03/01/2025 1:12 PM EDT) Anatomical Region Laterality Modality Breast Bilateral Mammography 03/02/2025 4:46 PM EDT Impressions 03/02/2025 4:47 PM EDT No mammographic evidence of malignancy. BREAST DENSITY: B - There are scattered areas of fibroglandular density. BI-RADS CATEGORY: 1 - NEGATIVE RECOMMENDATION: Screening bilateral mammogram is recommended in 1 year. MAMMO LOCATION: [facility], [address] [place] [address], [phone], . -------- FINAL REPORT -------- Dictated By: Daphne Pisano Dictated Date: 03/02/2025 16:46 ET Assigned Physician: Daphne Pisano Reviewed and Electronically Signed By: Daphne Pisano Signed Date: 03/02/2025 16:47 ET Workstation ID: [id number] Transcribed By: Self Edit Transcribed Date: 03/02/2025 16:46 ET Narrative 03/02/2025 4:47 PM EDT EXAM: Screening Mammogram CLINICAL: 85 years old, Female, routine annual exam. COMPARISON: 02/18/2024 and as far back as 02/07/2021 TECHNIQUE: Bilateral MLO and CC views were obtained digitally with 3-D mammogram (digital breast tomosynthesis). Computer-aided detection was utilized in evaluation of this exam (CAD). FINDINGS: No new suspicious mass, architectural distortion, or suspicious calcifications. Procedure Note Daphne Pisano MD - 03/02/2025 EXAM: Screening Mammogram CLINICAL: 85 years old, Female, routine annual exam. COMPARISON: 02/18/2024 and as far back as 02/07/2021 TECHNIQUE: Bilateral MLO and CC views were obtained digitally with 3-Dmammogram (digital breast tomosynthesis). Computer-aided detection wasutilized in evaluation of this exam (CAD). FINDINGS: No new suspicious mass, architectural distortion, or suspiciouscalcifications. IMPRESSION: No mammographic evidence of malignancy. BREAST DENSITY: B - There are scattered areas of fibroglandular density. BI-RADS CATEGORY: 1 - NEGATIVE RECOMMENDATION: Screening bilateral mammogram is recommended in 1 year. MAMMO LOCATION: [facility], [address] [place] [address], [phone], . -------- FINAL REPORT -------- Dictated By: Daphne Pisano Dictated Date: 03/02/2025 16:46 ET Assigned Physician: Daphne Pisano Reviewed and Electronically Signed By: Daphne Pisano Signed Date: 03/02/2025 16:47 ET Workstation ID: [id number] Transcribed By: Self Edit Transcribed Date: 03/02/2025 16:46 ET us Renny Ramirez MD IMG BI PROCEDURES Final Result * (ABNORMAL) Basic metabolic panel (12/06/2024 11:34 AM EDT) Sodium 138 133 - 145 mmol/L LAB CHEMISTRY METHOD 12/06/2024 4:40 PM [facility] Potassium 4.9 3.5 - 5.5 mmol/L LAB CHEMISTRY METHOD 12/06/2024 4:40 PM [facility] Chloride 111(H) 96 - 110 mmol/L LAB CHEMISTRY METHOD 12/06/2024 4:40 PM [facility] CO2 22 21 - 32 mmol/L LAB CHEMISTRY METHOD 12/06/2024 4:40 PM [facility] Anion Gap 5 3 - 11 LAB CHEMISTRY METHOD 12/06/2024 4:40 PM [facility] Glucose 97 70 - 100 mg/dL LAB CHEMISTRY METHOD 12/06/2024 4:40 PM [facility] BUN 29(H) 5 - 25 mg/dL LAB CHEMISTRY METHOD 12/06/2024 4:40 PM [facility] Creatinine 1.79(H) 0.50 - 1.10 mg/dL LAB CHEMISTRY METHOD 12/06/2024 4:40 PM [facility] eGFR 28(L) >=60 mL/min/1. 73m2 LAB CHEMISTRY METHOD 12/06/2024 4:40 PM [facility] Comment:Calculation based on the Chronic Kidney Disease Epidemiology Collaboration (CKD-EPI) equation refit without adjustment for race. BUN/Creatinine Ratio 16.2 LAB CHEMISTRY METHOD 12/06/2024 4:40 PM [facility] Calcium 9.3 8.5 - 10.5 mg/dL LAB CHEMISTRY METHOD 12/06/2024 4:40 PM EDT [facility] Blood Venous blood specimen / Unknown Venipuncture / Unknown 12/06/2024 11:34 AM EDT 12/06/2024 11:34 AM EDT us Renny Ramirez MD LAB BLOOD ORDERABLES Final Resu lt [facility] [address] [place] [address], [place] [phone] * (ABNORMAL) Lipid panel with reflex to direct LDL (09/08/2024 12:02 PM EST) Cholesterol 153 0 - 200 mg/dL LAB CHEMISTRY METHOD 09/08/2024 5:20 PM EST [facility] Triglycerides 168(H) 0 - 150 mg/dL LAB CHEMISTRY METHOD 09/08/2024 5:20 PM EST [facility] HDL 52 >=40 mg/dL LAB CHEMISTRY METHOD 09/08/2024 5:20 PM EST [facility] LDL Calculated 67 0 - 100 mg/dL LAB CHEMISTRY METHOD 09/08/2024 5:20 PM EST [facility] VLDL Cholesterol Paul 33.6 mg/dL LAB CHEMISTRY METHOD 09/08/2024 5:20 PM EST [facility] Non HDL Chol. (LDL+VLDL) 101 <145 mg/dL LAB CHEMISTRY METHOD 09/08/2024 5:20 PM EST [facility] Chol/HDL Ratio 2.9 0.0 - 4.4 LAB CHEMISTRY METHOD 09/08/2024 5:20 PM [facility] Blood Venous blood specimen / Unknown Venipuncture / Unknown 09/08/2024 12:02 PM EST 09/08/2024 12:02 PM EST us Renny Ramirez MD LAB BLOOD ORDERABLES Final Resu lt Performing Organization Address City/[facility]/ZIP Co de Phone Number [facility] [address] [place] [address], [place] [phone] * Hemoglobin A1c (09/08/2024 12:02 PM EST) [facility] Hemoglobin A1C 5.7 <6.5 % LAB CHEMISTRY METHOD 09/08/2024 8:51 PM EST [facility] Mean Bld Glu Estim. 117 mg/dL LAB CHEMISTRY METHOD 09/08/2024 8:51 PM EST [facility] Blood Venous blood specimen / Unknown Venipuncture / Unknown 09/08/2024 12:02 PM EST 09/08/2024 12:02 PM EST Renny Ramirez MD LAB BLOOD ORDERABLES Final Resu lt Performing Organization Address City/[facility]/ZIP Co de Phone Number [facility] [address] [place] [address], [place] [phone] * Depression Screening (03/02/2024) Pathologist [facility] Depression Screening Abstracted Result [facility] Historical Provider HEALTH MAINTENANCE Final Result * Falls Risk Assessment (08/18/2023) [facility] Falls Risk Assessment Abstracted Result [facility] Historical Provider HEALTH MAINTENANCE Final Result * Urine Albumin Creatinine Ratio (04/08/2023) [facility] Urine Albumin Creatinine Ratio Abstracted Historical Provider HEALTH MAINTENANCE Final Result * DXA BONE DENSITY STUDY 1+ SITS AXIAL SKEL (02/11/2021 2:18 PM EDT) Anatomical Region Laterality Modality Bone Densitometr y 11/15/2020 10:1 9 AM EDT Narrative 02/11/2021 4:05 PM EDT BONE DENSITY Lumbar Spine T-score is +0.2 (SD relative to 20-29 y/o adult) Z-score is +2.7 (SD relative to age matched peers) This is normal by criteria defined by the WHO. Left Hip T-score is -2.1 Z-score is +0.1 This is consistent with osteopenia by criteria defined by the WHO. Impression: Based on the World Health Organization criteria, Jessica Aj should be classified as having osteopenia. This patient has a 14% risk of major osteoporotic fracture and a 3.9% risk of hip fracture over the next 10 years. (World Health Organization Fracture Risk Assessment) [facility] Department of Internal Medicine recommends using [...] on the World Health Organization criteria, Jessica Aj should beclassified as having osteopenia. This patient has a 14% risk of majorosteoporotic fracture and a 3.9% risk of hip fracture over the next 10years. (World Health Organization Fracture Risk Assessment) [facility] Department of Internal Medicine recommendsusing National [...] Recently Relevant to Health Maintenance Insurance [facility]ICARE [facility] Care Teams Spot Man Relationship Specialty Start Date End Date Renny Ramirez MD [address] [place] [phone] PCP - General Internal Medicine 02/14/20
--- NOTE | 2025-03-08 15:54 | HO.NEPHOV ---
Vital Signs 03/08/25 15:56 Height 5 ft 8 in Weight 213 lb BMI 32.4 BP 138/54 L Blood Pressure Location Rt brachial Position Sitting Pulse 58 Pulse Source Pulse Oximeter Pulse Oximetry (%) 95 Oxygen Delivery Method Room Air Intake Visit Reasons: 1 MO FU-[facility] Animal Surgeon Required: No Accompanied by: Daughter Allergies adhesive (BANDAGE,ADHESIVE) Allergy (Unknown, Verified 03/08/25 15:56) TOOK OFF THE SKIN empagliflozin (From Synjardy) Allergy (Verified 03/08/25 15:56) Unknown levofloxacin (From LEVAQUIN) Adverse Reaction (Unknown, Verified 03/08/25 15:56) VOMITING atorvastatin (From Lipitor) Adverse Reaction (Verified 03/08/25 15:56) Unknown HPI Comments Details: Jessica was seen in follow up for CKD . She is 84 years of age with H/O CKD as well as CAD needing cardiac surgery. She has long standing DM as well hypertension with CKD. Her serum creatinine last year was 1.6 which is currently stable . She denies chest pain, SOB, PND, orthopnea, edema, orthostatic symptoms, new bone or back pain, regular NSAID intake, renal calculi, new skin rashes, photosensitivity, epistaxis, joint swellings, hematuria or hypoglycemias. She claims to be compliant with her medications. She denies any symptoms of CVA, CHF, symptoms of PAD. Her serum creatinine has gone up from baseline [facility] Medical History (Updated 02/08/25 @ 15:14 by Narinder Garcia MD) Constipation CAD (coronary artery disease) GERD (gastroesophageal reflux disease) Insulin dependent type 2 diabetes mellitus Surgical History History of knee surgery H/O repair of rotator cuff H/O aortic valve replacement Family History Mother Heart disease Hypertension Father Heart disease Hypertension Daughter Diabetes Kidney transplanted Social History Household Members: Children Household Members Other:: daughter Housing: House Do you presently have visiting nurse or other home services: Yes Alcohol intake: never Comment: Rare Patient Tobacco Use Status: Never used Tobacco service: No Review of Systems Const All systems reviewed & are unremarkable except as noted in HPI and below Physical Exam Vital Signs: Last Vital Signs Pulse 58 03/08/25 15:56 BP 138/54 L 03/08/25 15:56 Pulse Ox 95 03/08/25 15:56 Oxygen Delivery Method Room Air 03/08/25 15:56 BMI result Body Mass Index 32.4 Const General: comfortable and no acute distress Orientation/consciousness: patient oriented x3 HEENT Head: Yes normocephalic Mouth: Normal oral and palatal mucosa present Eyes EOM: EOMs intact bilaterally Neck Neck: Yes supple Resp Auscultation: clear to auscultation bilaterally Cardio Jugular venous distension: no JVD Rate: regular rate GI Palpation (GI): Soft to palpation Auscultation: normal bowel sounds General: Yes no CVA tenderness Back/Spine/Pelvis Back: no CVA tenderness Skin General skin exam: no rashes or lesions noted Neuro General: patient oriented x3 and moves all extremities Extrem General: Yes no pedal edema Results Reviewed Nephrology Results: Hgb, (12.0-16.0) 11.1 g/dl L 02/07/25 WBC, (4.8-10.8) 7.0 X10*3/uL 02/07/25 Plt Count, (160-400) 177 X10*3/uL 02/07/25 Sodium, (135-145) 141 mmol/L 03/07/25 Potassium, (3.3-5.1) 5.0 mmol/L 03/07/25 Chloride, (96-108) 114 mmol/L H 03/07/25 Carbon Dioxide, (22-29) 22 mmol/L 03/07/25 BUN, (9-16) 34 mg/dL H 03/07/25 Creatinine, (0.5-1.4) 1.71 mg/dL H 03/07/25 Calcium, (8.4-10.2) 9.6 mg/dL Δ 02/07/25 Phosphorus, (2.7-4.5) 4.1 mg/dL 02/07/25 PTH Intact, (8.7-77.1) 174.7 pg/mL H 02/07/25 Urine Protein, (Neg-Trace) 100 (2+) mg/dL H 11/11/24 Assessment & Plan Assessment & Plan (1) Hypertension: Code(s): I10 - Essential (primary) hypertension Category: Medical Qualifiers: Hypertension type: primary hypertension Qualified Code(s): I10 - Essential (primary) hypertension (2) CKD stage 3a, GFR 45-59 ml/min: Code(s): N18.31 - Chronic kidney disease, stage 3a Category: Medical Plan Jessica had DINO from tubular injury which has resolved. She has CKD 3 from vascular disease, DM and hypertension. She has good urine output. She could continue Spironolactone 12.5 mg daily. She can continue on Jardiance 10 mg daily which I plan to increase to 25 mg at next visit. I asked her to C/W good hydration for now. She should avoid NSAID's.Follow up blood work ordered in 2 M Orders: Orders Creatinine 2 Months I10 - Essential (primary) hypertension, N18.31 - Chronic kidney disease, stage 3a Blood Urea Nitrogen 2 Months I10 - Essential (primary) hypertension, N18.31 - Chronic kidney disease, stage 3a Electrolytes 2 Months I10 - Essential (primary) hypertension, N18.31 - Chronic kidney disease, stage 3a Hemoglobin A1c 2 Months I10 - Essential (primary) hypertension, N18.31 - Chronic kidney disease, stage 3a Coding Level of Care Code Est Pt Level 4 (03991) Diagnoses Primary hypertension I10 Hypertension type: primary hypertension CKD stage 3a, GFR 45-59 ml/min N18.31
[2025-03-08 15:56] VITALS: BP 138/54; PULSE 58; O2SAT 95; BMI 32.4
== END 2025-03-08 16:23 | disposition home or self-care (01) ==
LOC: HO.HKA 15:25
PROVIDERS: PCP Internal Medicine; Visit Provider Internal Medicine Nephrology
DX: I10 Essential (primary) hypertension (principal); N18.31 Chronic kidney disease, stage 3a
CPT/HCPCS: 99214

== ENCOUNTER → 2025-03-08 15:25 | Outpatient (BNVA) | payer MEDICARE, OTHER, SELFPAY | PROVIDERS: PCP Internal Medicine; Visit Provider Internal Medicine Nephrology | DX: E11.22 Type 2 diabetes mellitus with diabetic chronic kidney disease (principal); I12.9 Hypertensive chronic kidney disease with stage 1 through stage 4 chronic kidney disease, or unspecified chronic kidney disease; N18.31 Chronic kidney disease, stage 3a; Z79.84 Long term (current) use of oral hypoglycemic drugs | CPT/HCPCS: 99212 ==

== ENCOUNTER 2025-05-04 10:31 | Outpatient (REF) | payer MEDICARE, OTHER, SELFPAY ==
[2025-05-04 11:19] LABS: Hemoglobin A1C 131.4515 umol/L; Total Hemoglobin (HGBA1C) 2876.2625 umol/L
[2025-05-04 11:43] LABS: Anion Gap 14 (12-20); Blood Urea Nitrogen 35 mg/dL (9-16); Carbon Dioxide 21 mmol/L (22-29); Chloride 112 mmol/L (96-108); Estimated Glomerular Filt Rate 25; Potassium 4.7 mmol/L (3.3-5.1); Sodium 142 mmol/L (135-145)
== END 2025-05-04 10:32 | disposition home or self-care (01) ==
LOC: HO.LAB 10:31
PROVIDERS: PCP Internal Medicine; Visit Provider Internal Medicine Nephrology
DX: I12.9 Hypertensive chronic kidney disease with stage 1 through stage 4 chronic kidney disease, or unspecified chronic kidney disease (principal); N18.31 Chronic kidney disease, stage 3a; Z13.1 Encounter for screening for diabetes mellitus; N17.9 Acute kidney failure, unspecified
CPT/HCPCS: 36415; 80051; 82565; 83036; 84520

== ENCOUNTER 2025-05-08 08:54 | Outpatient (AMB) | payer MEDICARE, OTHER, SELFPAY ==
--- NOTE | 2025-05-08 09:02 | HO.NEPHOV ---
Vital Signs 05/08/25 09:04 Height 5 ft 8 in Weight 215 lb BMI 32.7 BP 130/60 Blood Pressure Location Lt brachial Position Sitting Pulse 55 Pulse Source Pulse Oximeter Pulse Oximetry (%) 98 Oxygen Delivery Method Room Air Intake Visit Reasons: 2 MO FU-[facility] Bed And Breakfast Operator Required: No Accompanied by: Daughter Allergies adhesive (BANDAGE,ADHESIVE) Allergy (Unknown, Verified 05/08/25 09:04) TOOK OFF THE SKIN empagliflozin (From Synjardy) Allergy (Verified 05/08/25 09:04) Unknown levofloxacin (From LEVAQUIN) Adverse Reaction (Unknown, Verified 05/08/25 09:04) VOMITING atorvastatin (From Lipitor) Adverse Reaction (Verified 05/08/25 09:04) Unknown HPI Comments Details: Jessica was seen in follow up for CKD . She is 84 years of age with H/O CKD as well as CAD needing cardiac surgery. She has long standing DM as well hypertension with CKD. Her serum creatinine last year was 1.6 which is currently stable . She denies chest pain, SOB, PND, orthopnea, edema, orthostatic symptoms, new bone or back pain, regular NSAID intake, renal calculi, new skin rashes, photosensitivity, epistaxis, joint swellings, hematuria or hypoglycemias. She claims to be compliant with her medications. She denies any symptoms of CVA, CHF, symptoms of PAD. Her serum creatinine has gone up from baseline [facility] Medical History (Updated 02/08/25 @ 15:14 by Narinder Garcia MD) Constipation CAD (coronary artery disease) GERD (gastroesophageal reflux disease) Insulin dependent type 2 diabetes mellitus Surgical History History of knee surgery H/O repair of rotator cuff H/O aortic valve replacement Family History Mother Heart disease Hypertension Father Heart disease Hypertension Daughter Diabetes Kidney transplanted Social History Household Members: Children Household Members Other:: daughter Housing: House Do you presently have visiting nurse or other home services: Yes Alcohol intake: never Comment: Rare Patient Tobacco Use Status: Never used Tobacco service: No Review of Systems Const All systems reviewed & are unremarkable except as noted in HPI and below Physical Exam Vital Signs: Last Vital Signs Pulse 55 05/08/25 09:04 BP 130/60 05/08/25 09:04 Pulse Ox 98 05/08/25 09:04 Oxygen Delivery Method Room Air 05/08/25 09:04 BMI result Body Mass Index 32.7 Const General: comfortable and no acute distress Orientation/consciousness: patient oriented x3 HEENT Head: Yes normocephalic Mouth: Normal oral and palatal mucosa present Eyes EOM: EOMs intact bilaterally Neck Neck: Yes supple Resp Auscultation: clear to auscultation bilaterally Cardio Jugular venous distension: no JVD Rate: regular rate GI Palpation (GI): Soft to palpation Auscultation: normal bowel sounds General: Yes no CVA tenderness Back/Spine/Pelvis Back: no CVA tenderness Skin General skin exam: no rashes or lesions noted Neuro General: patient oriented x3 and moves all extremities Extrem General: Yes no pedal edema Results Reviewed Nephrology Results: Hgb, (12.0-16.0) 11.1 g/dl L 02/07/25 WBC, (4.8-10.8) 7.0 X10*3/uL 02/07/25 Plt Count, (160-400) 177 X10*3/uL 02/07/25 Sodium, (135-145) 142 mmol/L 05/04/25 Potassium, (3.3-5.1) 4.7 mmol/L 05/04/25 Chloride, (96-108) 112 mmol/L H 05/04/25 Carbon Dioxide, (22-29) 21 mmol/L L 05/04/25 BUN, (9-16) 35 mg/dL H 05/04/25 Creatinine, (0.5-1.4) 1.90 mg/dL H 05/04/25 Calcium, (8.4-10.2) 9.6 mg/dL Δ 02/07/25 Phosphorus, (2.7-4.5) 4.1 mg/dL 02/07/25 PTH Intact, (8.7-77.1) 174.7 pg/mL H 02/07/25 Assessment & Plan Assessment & Plan (1) Hypertension: Code(s): I10 - Essential (primary) hypertension Category: Medical Qualifiers: Hypertension type: primary hypertension Qualified Code(s): I10 - Essential (primary) hypertension (2) CKD stage 3a, GFR 45-59 ml/min: Code(s): N18.31 - Chronic kidney disease, stage 3a Category: Medical Plan Jessica had DINO from tubular injury which has resolved. She has CKD 3 from vascular disease, DM and hypertension. She has good urine output. She could continue Spironolactone 12.5 mg daily. I increased her Jardiance to 25 mg daily. I asked her to C/W good hydration for now. She should avoid NSAID's.Follow up blood work ordered in 2 M Orders: Orders Creatinine 2 Months I10 - Essential (primary) hypertension, N18.31 - Chronic kidney disease, stage 3a Blood Urea Nitrogen 2 Months I10 - Essential (primary) hypertension, N18.31 - Chronic kidney disease, stage 3a Electrolytes 2 Months I10 - Essential (primary) hypertension, N18.31 - Chronic kidney disease, stage 3a Complete Blood Count Auto Diff 2 Months I10 - Essential (primary) hypertension, N18.31 - Chronic kidney disease, stage 3a Medications: Changed From empagliflozin (Jardiance) 10 mg PO DAILY 30 tabs 11RF To empagliflozin 25 mg PO DAILY 30 tabs 11RF 30 days Coding Level of Care Code Est Pt Level 4 (92541) Diagnoses Primary hypertension I10 Hypertension type: primary hypertension CKD stage 3a, GFR 45-59 ml/min N18.31
[2025-05-08 09:04] VITALS: BP 130/60; PULSE 55; O2SAT 98; BMI 32.7
--- OUTSIDE RECORDS SUMMARY | 2025-05-08 10:14 | XMS_ITS | Clinical Summary ---
Author Organization [facility] Address [address] [place] [address] Phone Care Team Providers Care Dry Heat Cabinet Attendant Name Role Phone Renny Ramirez MD Primary Care Provider [phone] Allergies Active Allergy Reactions Criticality Noted Date [...] 1 (one) time each day 8 Active Bradford-3 Fatty Acids 1360 MG capsule Take by [...] AM EST) Hemoglobin A1C 6.3(H) (4.0-5.6) % [facility] Comment: MONITORING: In known diabetic patients, hemoglobin A1c targets should be discussed with health care provider. DIAGNOSTIC USE: The [place] Diabetes Association (ADA) and the World Health [...] Supplement 1 Testing performed or reported by [facility], a Service of [facility], [address] [place] [id number] Mike Purdy MD, Poker Machine Attendant [facility]# [id number] Blood specimen (specimen) Venous blood / Unknown 10/15/2022 11:30 AM EST 10/15/2022 11:32 AM EST Indra Rivera MD LAB BLOOD ORDERABLES Final Re sult [facility] from Last 3 Months or Most Recently Relevant to Health Maintenance Insurance Medicare Community Health Medicare [employer] [place] [id number] Care Teams Dry Heat Cabinet Attendant Relationship Specialty Start Date End Date Renny Ramirez MD PCP - General Internal Medicine 04/15/22
--- OUTSIDE RECORDS SUMMARY | 2025-05-08 10:15 | XMS_ITS | Clinical Summary ---
Author Organization [facility] Address [address] [place] [address] Care Team Providers Care Metal Finisher Name Role Phone Renny Ramirez MD Primary Care Provider [phone] Allergies Active Allergy Reactions Criticality Noted Date Comments Atorvastatin Calcium 11/18/2005 liver problems Diphtheria-Tetanus Toxoids Ped 09/06/2009 Other Reaction(s): OTHER Swelling injection site/years ago Levofloxacin 11/18/2005 vomiting Medications rosuvastatin (CRESTOR) 40 mg tablet Take 1 [...] inject insulin once daily 06/18/20 23 Active insulin glargine (Lantus Solostar U-100 Insulin) [...] DAY 90 tablet 1 12/31/19 25 Active ondansetron (ZOFRAN) 4 mg tablet TAKE 1 TABLET BY MOUTH EVERY 8 HOURS NEEDED FOR NAUSEA 30 tablet 02/21/20 25 Active vit A/vit C/vit E/zinc/copper (PRESERVISION AREDS ORAL) Take by mouth. Active metoprolol succinate (TOPROL-XL) 50 mg 24 hr tablet Take 1 tablet (50 mg total) by mouth 1 (one) time each day. Do not crush or chew. 90 each 3 03/10/20 25 026 Active aspirin 81 mg EC tabletIndicati ons:Coronary artery disease due to lipid rich plaque Take 1 tablet (81 mg total) by mouth 1 (one) time each day. 90 each 3 04/20/20 25 026 Active traMADoL (ULTRAM) 50 mg tablet Take 1 tablet (50 mg total) by mouth every 12 (twelve) hours if needed for severe pain. for pain Max Daily Amount: 100 mg 56 tablet 04/28/20 25 Active aspirin 81 mg chewable tablet CHEW 1 TABLET BY MOUTH EVERY DAY 04/28/20 23 025 Discontinued traMADoL (ULTRAM) 50 mg tablet Take 1 tablet (50 mg total) by mouth every 12 (twelve) hours if needed for severe pain. for pain Max Daily Amount: 100 mg 56 tablet 03/31/20 25 025 Discontinued(Re order) Active Problems Problem Noted Date Diagnosed Date Bilateral carotid bruits 04/20/2025 Assessment & Plan (04/20/2025 4:41 PM EDT): Patient is noted to have bilateral carotid bruits on exam today; we will evaluate this further with a carotid duplex. Orders: Vascular US duplex carotid bilateral; Future Prosthetic aortic valve failure 10/04/2024 LBBB (left bundle branch block) 10/04/2024 Dyspnea on exertion 07/14/2024 Low back pain 07/14/2024 Osteoarthritis 07/14/2024 Unsteady gait when walking 07/14/2024 Aortic valve stenosis 07/14/2024 Assessment & Plan (04/20/2025 4:41 PM EDT): The patient is doing well status post bioprosthetic aortic valve replacement 2017; most recent echocardiogram completed 05/27/2023 showed her bioprosthetic aortic valve was functioning normally. She offers no new worrisome symptoms and no new concerning findings were noted on physical exam today. We will continue to follow this on serial echocardiograms. Arteriosclerosis of coronary artery 07/14/2024 Spinal stenosis of lumbar region 07/14/2024 Obesity with body mass index 30 or greater 07/14 Thoracic compression fracture (CMS/[facility] V24, CMS/ [facility] V28) 10/27/2023 Overview (06/02/2024): Last Assessment & [...] going for an MRI at the open [facility] in [place]. I feel like she is describing more [...] tis 08/18/2023 Stage 3b chronic kidney disease (CMS/[facility] V24, CM S/[facility] V28) 06/25/2023 Palpitations 06/25/2023 CKD (chronic kidney disease) 06/25/2023 Dilated cardiomyopathy (CMS/[facility] V24, CMS/[facility] V28 ) 12/01/2022 Overview (06/02/2024): Last Assessment [...] today and she will be seeing her policy intern in the near future and she will discuss this with him then. She has a history of chronic kidney disease stage IIIb, so I will defer to her policy intern to determine whether this is appropriate to [...] day or 4 pounds in one week. Assessment & Plan (04/20/2025 4:41 PM EDT): Most recent echocardiogram completed 05/27/2023 showing an ejection fraction of 50 to 60%. The patient presents today with very mild bilateral lower extremity edema; she otherwise appears euvolemic on exam today. She has a history of bilateral lower extremity edema for which she was previously maintained on furosemide; however, she does admit that she has not been watching her dietary sodium intake which may be high. We discussed the importance of following a low-sodium diet, continuing with daily compressions stocking use, and elevation as able. Given lack of other heart failure symptoms, this does not appear to be membership sales representative of overt heart failure; we reviewed worrisome signs or symptoms for which she should return to care or seek urgent medical attention and she verbalizes understanding of this. Will continue guideline directed medical therapies including metoprolol, spironolactone, and Jardiance; she continues to follow with nephrology given her history of CKD. We discussed risk reduction through lifestyle modifications including healthy diet, routine exercise, and weight management. We reviewed heart failure management including low sodium diet, symptom surveillance, daily weights, and medication compliance. I've asked the patient to call if they develop worsening symptoms of heart failure such as increased shortness of breath, new or worsening cough, increased swelling in the legs or ankles, or weight gain of more than 2 pounds in one day or 4 pounds in one week. Cardiac murmur 04/15/2022 Dyspnea on exertion 04/15/2022 Hypertension 04/15/2022 Assessment & Plan (04/20/2025 4:41 PM EDT): Blood pressure is well-controlled on current antihypertensive regimen; continue metoprolol and spironolactone. The patient continues to follow closely with nephrology for history of CKD. Hypertensive heart and renal disease with (congestive) heart failure ([facility] V24, [facility] V28) 04/15/2022 Osteoarthritis 04/15/2022 Acute nontraumatic kidney injury ([facility] V24) 0 04/15/2022 Stage 1 chronic kidney disease 04/15/2022 Coronary arteriosclerosis 04/15/2022 Gastroesophageal reflux disease 04/15/2022 Diabetes mellitus (CMS/[facility] V24, CMS/[facility] V28) History of aortic valve replacement 12/25/2020 Overview (07/14/2024): Last Assessment & Plan: Functioning normally on exam and via echo. Assessment & Plan (04/20/2025 4:41 PM EDT): Primary osteoarthritis of both knees 07/30/2020 Bilateral carpal tunnel syndrome 08/14/2018 Postoperative atrial fibrill ation ([facility] V24, CMS/HCC V28) 03/22/2018 Overview (06/02/2024): Last Assessment & Plan: [...] emergent medical attention related to possible CVA. 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 As above, postoperative 30-day R OCT monitor was attempted but she was unable to tolerate it for more than 5 days; nevertheless, no atrial fibrillation was discovered during that timeframe and she is no longer on anticoagulation today. She has not had any recent concerning palpitations; she is aware to notify our office should these occur at which time we will continue readdress this. She is aware of the possible long-term negative implications of remaining off anticoagulation for cardioembolic prophylaxis; she verbalizes understanding of when to seek urgent medical attention related to possible cardioembolic event. Coronary artery disease due to lipid rich [...] rest, or if they were to faint. Assessment & Plan (04/20/2025 4:41 PM EDT): She remains active on a regular basis at cardiac rehab and at home and offers no new symptoms cause concern for underlying ischemia; she does get occasional chest pain that she feels is related to underlying indigestion and she has had this ongoing and unchanged since she was a child. She is able to exert herself well without any exertional symptoms. Will continue cardioprotective medical therapies including metoprolol, rosuvastatin, and daily ASA. We discussed cardiac risk reduction through lifestyle modifications with healthy diet, and weight management. The patient was advised to seek emergent medical attention by calling 911 if they were to develop severe dyspnea, chest pain that did not resolve with rest, or if they were to faint. Orders: aspirin 81 mg EC tablet; Take 1 tablet (81 mg total) by mouth 1 (one) time each day. 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 Approaches towards weight loss are discussed, including burning more calories than one takes in by portion control and regular exercise with an emphasis on duration rather than intensity. Type 1 diabetes mellitus ([facility] V24, [facility] V 28) 02/14/2014 Overview (06/02/2024): Podiatry note 06/13/2008 Dr. Sparks. Type II or unspecified type diabetes mellitus with ophthalmic manifestations, uncontrolled(250.52) ([facility] V24, [facility] V28) 02/14/2014 Overview (06/02/2024): Cataract OU noted on outside eye exam 06/02/12 Dr. Russo. Morbid obesity ([facility] V24, [facility] V28) 2013 Overview (07/14/2024): BMI 43.76 on 01/30/14. Microalbuminuria 08/16/2012 Lumbar spinal stenosis 05/31/2008 Hyperlipidemia 11/18/2005 Overview (06/02/2024): Last Assessment & Plan: Last lipid panel 11/12 total cholesterol 140, HDL 41, LDL 57, triglyceride 210. She has been adjusting her diet. Continue statin. Goal LDL is less than 70 Assessment & Plan (04/20/2025 4:41 PM EDT): LDL goal for this patient was a history of coronary artery disease as well as diabetes less than 55; her most recent lipid panel completed on 03/09/2025 shows an LDL of 71. We have discussed need for lifestyle changes with improved diet and increased activity as tolerated; she does admit that her diet is not the best and there is room for improvement. At this time, we will continue rosuvastatin 40 mg daily. I have reviewed with the patient the importance of a heart healthy lifestyle which includes eating a low-fat low-salt diet, getting regular exercise, maintaining a healthy weight, not smoking, and following up with routine medical care. Orders: Vascular US duplex carotid bilateral; Future Heartburn 11/18/2005 Overview (06/02/2024): Last Assessment & Plan: The patient does report ongoing heartburn symptoms, however they are only at night when she is laying flat for which she uses 2 pillows to elevate the head of her bed and this helps to control her symptoms. This does not appear to be cardiac in nature, and no further intervention is needed. Type II diabetes mellitus wi th renal manifestations (CMS/HCC V24, CMS/HCC V28) 11/18/2005 Overview (06/02/2024): Type II or unspecified type diabetes mellitus with peripheral circulatory disorders, uncontrolled(250.72) Edema 11/18/2005 Assessment & Plan (04/20/2025 4:41 PM EDT): As above. Benign essential hypertension 11/18/2005 Overview (07/14/2024): Last Assessment & Plan: Controlled, continue current regimen. Hyperlipidemia 11/18/2005 Overview (07/14/2024): Last Assessment & Plan: Last lipid panel 11/12 total cholesterol 140, HDL 41, LDL 57, triglyceride 210. She has been adjusting her diet. Continue statin. Goal LDL is less than 70 Resolved Problems Problem Noted Date Diagnosed Date Resolved Date Essential hypertension, benign 11/18/2005 04/20/2025 Overview (06/02/2024): Last Assessment & Plan: The patient's blood pressure remains well controlled on current medical therapies; we will make no changes today. Encounters Date Type Department Care Team Description 04/20/2025 2:40 PM EDT Office Visit [facility] Cardiology [facility] [address] [facility] [address] [place] [phone] Anna Obando NP Dilated cardiomyopathy ([facility] V24, [facility] V28) (Primary Dx); Localized edema; Aortic valve stenosis, etiology of cardiac valve disease unspecified; History of aortic valve replacement; Coronary artery disease due to lipid rich plaque; Primary hypertension; Hyperlipidemia, unspecified hyperlipidemia type; Bilateral carotid bruits; Postoperative atrial fibrillation ([facility] V24, [facility] V28); Obesity (BMI 30.0-34.9) 03/28/2025 10:30 AM EDT Office Visit [facility] - [place] [address] [phone] Rogers Walter DPM Primary osteoarthritis of both feet (Primary Dx); Diabetic mononeuropathy simplex ([facility] V24, [facility] V28); Bursitis of both feet; Type II diabetes mellitus with peripheral circulatory disorder ([facility] V24, [facility] V28); Metatarsalgia of both feet; Ingrowing nail 03/28/2025 Telephone Adult Medicine [address] [phone] Zully Ferreira RN 03/10/2025 Telephone [facility] Cardiology [facility] [address] [facility] [address] [place] [phone] Braydon Lujan MD 03/09/2025 2:30 PM EDT Office Visit Adult Medicine [address] [phone] Renny Ramirez MD Type 2 diabetes mellitus with stage 4 chronic kidney disease, without long-term current use of insulin ([facility] V24, [facility] V28) (Primary Dx); Pure hypercholesterolemia; Encounter for long-term (current) use of medications; Primary osteoarthritis of both knees; Microalbuminuria; Spinal stenosis of lumbar region, unspecified whether neurogenic claudication present; Essential hypertension, benign; Stage 4 chronic kidney disease (CMS/HCC V24, CMS/HCC V28); Hyperchloremic metabolic acidosis; Bilateral lower extremity edema 03/02/2025 11:10 AM EDT Office Visit Gastroenterology - [place] [address] [place] [address] Arlene Beard PA 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 (Primary Dx); Schatzki's ring of distal esophagus; Nausea; Constipation, unspecified constipation type 03/01/2025 12:46 PM EDT - 03/01/2025 11:59 PM EDT Hospital Encounter Radiology Department - [address] [phone] Encounter for screening mammogram for breast cancer Discharge Disposition: Home or Self Care 02/28/2025 Telephone Adult Medicine [address] [phone] Renny Ramirez MD from Last 3 Months Immunizations Name Administration Dates Next Due H1N1 Inj Preservative Free 09/06/2009 Influenza trivalent, 0.5mL ( Fluzone High-dose) 65yo and older 04/25/2025,07/10/2022,06/12/2021,06/15,06/16/2019,05/16/2018,05/31/2017 ,05/31/2016,05/06/2015 Influenza trivalent, with pr eservative (Fluzone; Afluria) 6mo and older 06/12/2014,06/20/2013,05/11/2012,07/01,08/05/2010,05/22/2009,08/02/2008 ,06/01/2007,08/05/2006 Pfizer SARS-CoV-2 COVID-19, mRNA, LNP-S, preservative free 07/31/2021 Pneumococcal conjugate 13 va lent (Prevnar 13, PCV13) 2mo and older 04/08/2017 Pneumococcal polysaccharide 23 valent (Pneumovax 23) 2yo and older 05/20/2019,01/11/2007 Td Tetanus diptheria (Tdvax) 7yo and older 05/03/2007 Surgical History Surgery Date Site/Laterality Comments SECTION PROCEDURE: [place] DELIVERY ONLY ROTATOR CUFF REPAIR 08/24/2002 PROCEDURE: [...] to lipid rich plaque Dilated cardiomyopathy (CMS/ [facility] V24, CMS/HCC V28) 12/01/2022 DX:Dilated cardiomyopathy (H [...] you may not have stable housing? No 03/28/2025 Food Access & Nutrition Answer Date Rec orded Do you have access to a vari ety of food including fruits and vegetables? Yes 03/28/2025 Access to Healthcare Answer Date Record ed Within the last 3 months, ho w many times did you visit the emergency department for your medical care? 0 03/28/2025 Health Literacy Answer Date Recorded How often do you need to hav e someone help you when you read instructions, pamphlets, or other written material from your doctor or pharmacy? Never 03/28/2025 Caregiver: How often do you need to have someone help you when you read instructions, pamphlets, or other written material from your doctor or pharmacy? Not on file 03/28/2025 Financial Risk Answer Date Recorded How hard is it for you to pa y for the very basics like food, housing, medical care, and air conditioning / heating? Not very hard 03/28/2025 Transportation Answer Date Recorded Has the lack of transportati on kept you from meetings, work, or from getting things needed for daily living? No Has the lack of transportati on kept you from medical appointments or from getting medications? No 03/28/2025 Social Isolation Answer Date Recorded How often do you feel lonely or isolated from th ose around you? Never 03/28/2025 Food Risk Answer Date Recorded Within the past 12 months we worried whether our food would run out before we got money to buy more. Never true 03/28/2025 Within the past 12 months th e food we bought just didn't last and we didn't have money to get more. Never true 03/28/2025 Dependent Care Answer Date Recorded Do you need help finding or paying for care for your loved ones. For example, school childcare attendant or elderly care for an older adult? No 03/28/2025 Education Answer Date Recorded Do you think completing more education or training, like finishing a GED, going to college, or learning a trade, would be helpful for you? N/A 03/28/2025 Employment and Income Answer Date Recor ded During the last four weeks, have you been actively looking for work? No 03/28/2025 Living Situation Answer Date Recorded What is your living situation? 0 03/28/2025 Comments No Sex and Gender Information Value [...] Sign Reading Time Taken Comments Blood Pressure 115/60 04/20/2025 2:54 PM EDT Pulse 56 04/20/2025 2:54 PM EDT Temperature 36.4 C (97.6 F) 03/09/2025 2:44 PM EDT Respiratory Rate 16 03/09/2025 2:44 PM EDT Oxygen Saturation 98% 04/20/2025 2:54 PM EDT Inhaled Oxygen Concentration - - Weight 98 kg (216 lb) 04/20/2025 2:54 PM EDT Height 172.7 cm (5' 8 ) 04/20/2025 2:54 PM EDT Body Mass Index 32.84 04/20/2025 2:54 PM EDT Plan of Treatment Upcoming Encounters Date Type Department Care Team (Late st Contact Info) Description 05/30/2025 12:00 PM EDT Ancillary Procedure [facility] [address] [facility] [address] [place] [phone] 06/12/2025 1:00 PM EDT Office Visit Adult Medicine [address] [phone] Simin Stark, BEAD SUPERVISOR [address] [place] [address] 06/29/2025 1:00 PM EST Office Visit Orthopedic Surgery - [place] [address] [phone] Rogers Walter, DPM [address] [phone] 10/02/2025 1:00 PM EST Office Visit Adult Medicine [address] [phone] Renny Ramirez MD [address] [place], [place] 10/04/2025 11:30 AM EST Office Visit Gastroenterology - [place] [address] [facility] [address] [place] [phone] Arlene Beard PA [address] [place] [address] Health Maintenance Due Date Last Done Comments Diabetes: Annual Foot Exam 01/13/1950 Diabetes: Annual Retina Eye Exam 01/13/1950 Zoster Vaccines (1 of 2) 1961 DTaP,Tdap,and Td Vaccines (2 - Td or Tdap) 05/03/2017 05/03/2007 Falls Risk Assessment 08/18/2024 08/18/2023 Depression Screening 08/24/2024 03/02/2024 Medicare Annual Wellness Visit 03/02/2025 03/02/2024 COVID-19 Vaccine ( season) 2025 05/26/2023, 07/31/2021, 12/07/2020, Additional history exists Diabetes: Blood Sugar Control Test (HGBA1C) 09/09/2025 03/09/2025, 09/08/2024, 06/08/2024, Additional history exists Diabetes: Annual Urine Albumin-Creatinine Ratio (uACR) 03/09/2026 03/09/2025, 04/08/2023 Diabetes: Annual GFR (Glomerular Filtration Rate) 03/09/2026 03/09/2025, 12/06/2024, 09/08/2024, Additional history exists Hypertension/CHF/CAD Annual BMP Blood Test 03/09/2026 03/09/2025, 12/06/2024, 09/08/2024, Additional history exists Social Influencers of Health Screening 03/28/2026 03/28/2025 Cholesterol Screening (Lipid Panel) 03/09/2030 03/09/2025, 09/08/2024, 03/02/2024, Additional history exists Osteoporosis Screening (Bone Density Screening) 02/11/2031 02/11/2021, 09/22/2017 Pneumococcal Vaccine: 50+ Years Completed 05/20/2019, 04/08/2017, 01/11/2007 RSV Immunization Adult Patients Completed 05/26/2023 Influenza Vaccine Completed 04/25/2025, , 07/10/2022, Additional history exists HIB Vaccines Aged Out No longer eligi [...] Date/Time Associated Diagnosis Comments HEMOGLOBIN A1C Routine 03/09/2025 3:24 PM EDT Type 2 diabetes mellitus with stage 4 chronic kidney disease, without long-term current use of insulin ([facility] V24, [facility] V28) LIPID PANEL WITH REFLEX TO DIRECT LDL Routine 03/09/2025 3:24 PM EDT Pure hypercholesterolemia COMPREHENSIVE METABOLIC PANEL Routine 03/09/2025 3:24 PM EDT Type 2 diabetes mellitus with stage 4 chronic kidney disease, without long-term current use of insulin ([facility] V24, [facility] V28) Encounter for long-term (current) use of medications MICROALBUMIN CREATININE URINE RATIO Routine 03/09/2025 3:24 PM EDT Type 2 diabetes mellitus with stage 4 chronic kidney disease, without long-term current use of insulin ([facility] V24, [facility] V28) MG MAMMO DIGITAL SCREENING W KOSTA BILAT Routine 03/01/2025 1:12 PM EDT Encounter for screening mammogram for breast cancer DEPRESSION SCREENING Routine 03/02/2024 FALLS RISK ASSESSMENT Routine 08/18/2023 DXA BONE DENSITY STUDY 1+ SITS AXIAL SKEL Routine 02/11/2021 2:18 PM EDT Age-related osteoporosis without current pathological fracture from Last 3 Months or Most Recently Relevant to Health Maintenance Results * Lipid panel with reflex to direct LDL (03/09/2025 3:24 PM EDT) Cholesterol 149 0 - 200 mg/dL LAB CHEMISTRY METHOD 03/09/2025 7:58 PM EDT [facility] Triglycerides 112 0 - 150 mg/dL LAB CHEMISTRY METHOD 03/09/2025 7:58 PM EDT [facility] HDL 56 >=40 mg/dL LAB CHEMISTRY METHOD 03/09/2025 7:58 PM EDT [facility] LDL Calculated 71 0 - 100 mg/dL LAB CHEMISTRY METHOD 03/09/2025 7:58 PM EDT [facility] VLDL Cholesterol Paul 22.4 mg/dL LAB CHEMISTRY METHOD 03/09/2025 7:58 PM EDT [facility] Non HDL Chol. (LDL+VLDL) 93 <145 mg/dL LAB CHEMISTRY METHOD 03/09/2025 7:58 PM EDT [facility] Chol/HDL Ratio 2.7 0.0 - 4.4 LAB CHEMISTRY METHOD 03/09/2025 7:[address] [facility] Blood Venous blood specimen / Unknown Venipuncture / Unknown 03/09/2025 3:24 PM EDT 03/09/2025 3:24 PM EDT us Renny Ramirez MD LAB BLOOD ORDERABLES Final Resu lt Performing Organization Address City/[facility]/ZIP Co de Phone Number [facility] [address] [place] [address], [place] [phone] * Microalbumin creatinine urine ratio (03/09/2025 3:24 PM EDT) Creatinine, Urine 61.0 mg/dL LAB CHEMISTRY METHOD 03/09/2025 7:45 PM EDT [facility] Microalb, Ur 8.3 0.0 - 29.0 mg/L LAB CHEMISTRY METHOD 03/09/2025 7:45 PM EDT [facility] Microalb/Creat Ratio 14 <30 mg/g creat LAB CHEMISTRY METHOD 03/09/2025 7:45 PM EDT [facility] Urine Urine specimen obtained by clean catch procedure / Unknown Non-blood Collection / Unknown 03/09/2025 3:24 PM EDT 03/09/2025 3:24 PM EDT us Renny aRmirez MD LAB URINE ORDERABLES Final Resu lt Performing Organization Address City/[facility]/ZIP Co de Phone Number [facility] [address] [place] [address], [place] [phone] * Hemoglobin A1c (03/09/2025 3:24 PM EDT) Hemoglobin A1C 6.4 <6.5 % LAB CHEMISTRY METHOD 03/09/2025 9:41 PM EDT [facility] Mean Bld Glu Estim. 137 mg/dL LAB CHEMISTRY METHOD 03/09/2025 9:41 PM EDT [facility] Blood Venous blood specimen / Unknown Venipuncture / Unknown 03/09/2025 3:24 PM EDT 03/09/2025 3:24 PM EDT us Renny Ramriez MD LAB BLOOD ORDERABLES Final Resu lt [facility] [address] [place] [address], * (ABNORMAL) Comprehensive metabolic panel (03/09/2025 3:24 PM EDT) Sodium 140 133 - 145 mmol/L LAB CHEMISTRY METHOD 03/09/2025 7:59 PM EDT [facility] Potassium 4.3 3.5 - 5.5 mmol/L LAB CHEMISTRY METHOD 03/09/2025 7:59 PM EDT [facility] Chloride 113(H) 96 - 110 mmol/L LAB CHEMISTRY METHOD 03/09/2025 7:[address] [facility] CO2 23 21 - 32 mmol/L LAB CHEMISTRY METHOD 03/09/2025 7:59 PM EDT [facility] Anion Gap 4 3 - 11 LAB CHEMISTRY METHOD 03/09/2025 7:59 PM EDT [facility] Glucose 100 70 - 100 mg/dL LAB CHEMISTRY METHOD [facility] BUN 34(H) 5 - 25 mg/dL LAB CHEMISTRY METHOD 03/09/2025 7:[address] [facility] Creatinine 1.80(H) 0.50 - 1.10 mg/dL LAB CHEMISTRY METHOD 03/09/2025 7:59 PM EDT [facility] eGFR 28(L) >=60 mL/min/1. 73m2 LAB CHEMISTRY METHOD 03/09/2025 7:[address] [facility] Comment:Calculation based on the Chronic Kidney Disease Epidemiology Collaboration (CKD-EPI) equation refit without adjustment for race. BUN/Creatinine Ratio 18.9 LAB CHEMISTRY METHOD 03/09/2025 7:[address] [facility] Calcium 8.8 8.5 - 10.5 mg/dL LAB CHEMISTRY METHOD 03/09/2025 7:59 PM EDT [facility] AST (SGOT) 30 10 - 42 unit/L LAB CHEMISTRY METHOD 03/09/2025 7:59 PM EDT [facility] ALT (SGPT) 28 10 - 60 unit/L LAB CHEMISTRY METHOD 03/09/2025 7:59 PM EDT [facility] Alkaline Phosphatase 181(H) 42 - 121 unit/L LAB CHEMISTRY METHOD 03/09/2025 7:59 PM EDT [facility] Total Protein 6.6 6.0 - 8.0 g/dL LAB CHEMISTRY METHOD 03/09/2025 7:59 PM EDT [facility] Albumin 3.6 3.2 - 5.0 g/dL LAB CHEMISTRY METHOD 03/09/2025 7:59 PM EDT [facility] Total Bilirubin 0.3 0.0 - 1.4 mg/dL LAB CHEMISTRY METHOD 03/09/2025 7:59 PM EDT [facility] Blood Venous blood specimen / Unknown Venipuncture / Unknown 03/09/2025 3:24 PM EDT 03/09/2025 3:24 PM EDT us Renny Ramirez MD LAB BLOOD ORDERABLES Final Resu lt [facility] [address] [place] [address], [place] [phone] * MG Mammo Digital Screening w Kosta bilat (03/01/2025 1:12 PM EDT) Anatomical Region Laterality Modality Breast Bilateral Mammography 03/02/2025 4:46 PM EDT Impressions 03/02/2025 4:47 PM EDT No mammographic evidence of malignancy. BREAST DENSITY: B - There are scattered areas of fibroglandular density. BI-RADS CATEGORY: 1 - NEGATIVE RECOMMENDATION: Screening bilateral mammogram is recommended in 1 year. MAMMO LOCATION: [facility], [address] [place] [address], [id number], . -------- FINAL REPORT -------- Dictated By: Daphne Pisano Dictated Date: 03/02/2025 16:46 ET Assigned Physician: Daphne Pisano Reviewed and Electronically Signed By: Daphne Pisano Signed Date: 03/02/2025 16:47 ET Workstation ID: [id number] Transcribed By: Self Edit Transcribed Date: 03/02/2025 [...] is recommended in 1 year. MAMMO LOCATION: [facility], [address] [place] [address], [phone], . -------- FINAL REPORT -------- Dictated By: Daphne Pisano Dictated Date: 03/02/2025 16:46 ET Assigned Physician: Daphne Pisano Reviewed and Electronically Signed By: Daphne Pisano Signed Date: 03/02/2025 16:47 ET Workstation ID: [id number] Transcribed By: Self Edit Transcribed Date: 03/02/2025 16:46 ET Renny Ramirez MD IMG BI PROCEDURES Final Result * Depression Screening (03/02/2024) Depression Screening Abstracted Historical Provider HEALTH MAINTENANCE Final Result * Falls Risk Assessment (08/18/2023) Pathologist [facility] Falls Risk Assessment Abstracted Historical Provider HEALTH [...] (World Health Organization Fracture Risk Assessment) [facility] Department of Internal Medicine recommends using National [...] (World Health Organization Fracture Risk Assessment) [facility] Department of Internal Medicine recommendsusing National Osteoporosis [...] Recently Relevant to Health Maintenance Insurance [facility] Care Teams Metal Finisher Relationship Specialty Start Date End Date Renny Ramirez MD [address] [place] [address] PCP - General Internal Medicine 04/20/25
--- OUTSIDE RECORDS SUMMARY | 2025-05-08 10:15 | XMS_ITS ---
Author Name [facility] Organization Unknown Care Team Organization Name Specialty Phone Email Start Date End Da te [facility] ACO 04/12/2025 [facility] Rebecca Brown Primary Care 04/30/202303/24 [facility] KATELYN URIARTE Primary Care 01/30/2023 [facility] CHRISTOS Juarez Primary Care 07/01/202203/24
== END 2025-05-08 09:22 | disposition home or self-care (01) ==
LOC: HO.HKA 08:55
PROVIDERS: PCP Internal Medicine; Visit Provider Internal Medicine Nephrology
DX: I10 Essential (primary) hypertension (principal); N18.31 Chronic kidney disease, stage 3a
CPT/HCPCS: 99214

== ENCOUNTER → 2025-05-08 08:54 | Outpatient (BNVA) | payer MEDICARE, OTHER, SELFPAY | PROVIDERS: PCP Internal Medicine; Visit Provider Internal Medicine Nephrology | DX: I10 Essential (primary) hypertension (principal); N18.31 Chronic kidney disease, stage 3a | CPT/HCPCS: 99212 ==

== ENCOUNTER 2025-07-24 13:37 | Outpatient (REF) | payer MEDICARE, OTHER, SELFPAY ==
[2025-07-24 13:49] LABS: MANUAL DIFF FLAG NO
[2025-07-24 14:11] LABS: Hematocrit 37.0 % (37.0-47.0); Hemoglobin 11.5 g/dl (12.0-16.0); Imm Gran Abs Auto 0.03 X10*3/uL (0.00-0.03); Imm Gran Pct Auto 0.4 % (0.0-0.4); Lymphocytes Absolute Auto 2.7 X10*3/uL (1.2-4.9); Mean Corpuscular HGB Conc 31.1 g/dl (31.0-35.0); Mean Corpuscular Hemoglobin 29.7 pg (27.0-33.0); Mean Corpuscular Volume 95.6 fL (80.0-98.0); NRBC Abs Auto 0.000 X10*3/uL (0.0-0.012); NRBC Pct Auto 0.0 /100WBC (0.0-0.2); Platelet Count 151 X10*3/uL (160-400); Red Blood Count 3.87 X10*6/uL (4.20-5.50); White Blood Count 7.1 X10*3/uL (4.8-10.8)
[2025-07-24 14:39] LABS: Anion Gap 11 (12-20); Blood Urea Nitrogen 33 mg/dL (9-16); Carbon Dioxide 23 mmol/L (22-29); Chloride 112 mmol/L (96-108); Estimated Glomerular Filt Rate 27; Potassium 5.0 mmol/L (3.3-5.1); Sodium 141 mmol/L (135-145)
== END 2025-07-24 13:38 | disposition home or self-care (01) ==
LOC: HO.LAB 13:37
PROVIDERS: PCP Internal Medicine; Visit Provider Internal Medicine Nephrology
DX: I12.9 Hypertensive chronic kidney disease with stage 1 through stage 4 chronic kidney disease, or unspecified chronic kidney disease (principal); N18.31 Chronic kidney disease, stage 3a
CPT/HCPCS: 36415; 80051; 82565; 84520; 85025

== ENCOUNTER 2025-07-28 15:06 | Outpatient (AMB) | payer MEDICARE, OTHER, SELFPAY ==
--- NOTE | 2025-07-28 15:23 | HO.NEPHOV ---
Vital Signs 07/28/25 15:26 Height 5 ft 8 in Weight 192 lb BMI 29.2 BP 110/50 L Blood Pressure Location Lt brachial Position Sitting Pulse 57 Pulse Source Pulse Oximeter Pulse Oximetry (%) 98 Oxygen Delivery Method Room Air Intake Visit Reasons: 2mon f/u w/labs-Conf w/daughter Grinder Outside Diameter Required: No Accompanied by: Daughter Allergies adhesive (BANDAGE,ADHESIVE) Allergy (Unknown, Verified 07/28/25 15:) TOOK OFF THE SKIN empagliflozin (From Synjardy) Allergy (Verified 07/28/25 15:26) Unknown levofloxacin (From LEVAQUIN) Adverse Reaction (Unknown, Verified 07/28/25 15:) VOMITING atorvastatin (From Lipitor) Adverse Reaction (Verified 07/28/25:) Unknown HPI Comments Details: Jessica was seen in follow up for CKD . She is 85 years of age with H/O CKD as well as CAD needing cardiac surgery. She has long standing DM as well hypertension with CKD. Her serum creatinine last year was 1.6 which is currently stable . She denies chest pain, SOB, PND, orthopnea, edema, orthostatic symptoms, new bone or back pain, regular NSAID intake, renal calculi, new skin rashes, photosensitivity, epistaxis, joint swellings, hematuria or hypoglycemias. She claims to be compliant with her medications. She denies any symptoms of CVA, CHF, symptoms of PAD. Her serum creatinine has gone up from baseline [facility] Medical History (Updated 02/08/25 @ 15:14 by Narinder Garcia MD) Constipation CAD (coronary artery disease) GERD (gastroesophageal reflux disease) Insulin dependent type 2 diabetes mellitus Surgical History History of knee surgery H/O repair of rotator cuff H/O aortic valve replacement Family History Mother Heart disease Hypertension Father Heart disease Hypertension Daughter Diabetes Kidney transplanted Social History Household Members: Children Household Members Other:: daughter Housing: House Do you presently have visiting nurse or other home services: Yes Alcohol intake: never Comment: Rare Patient Tobacco Use Status: Never used Tobacco service: No Review of Systems Const All systems reviewed & are unremarkable except as noted in HPI and below Physical Exam Vital Signs: Last Vital Signs Pulse 57 07/28/25 15:26 BP 110/50 L 07/28/25 15:26 Pulse Ox 98 07/28/25 15:26 Oxygen Delivery Method Room Air 07/28/25 15:26 BMI result Body Mass Index 29.2 Const General: comfortable and no acute distress Orientation/consciousness: patient oriented x3 HEENT Head: Yes normocephalic Mouth: Normal oral and palatal mucosa present Eyes EOM: EOMs intact bilaterally Neck Neck: Yes supple Resp Auscultation: clear to auscultation bilaterally Cardio Jugular venous distension: no JVD Rate: regular rate GI Palpation (GI): Soft to palpation Auscultation: normal bowel sounds General: Yes no CVA tenderness Back/Spine/Pelvis Back: no CVA tenderness Skin General skin exam: no rashes or lesions noted Neuro General: patient oriented x3 and moves all extremities Extrem General: Yes no pedal edema Results Reviewed Nephrology Results: Hgb, (12.0-16.0) 11.5 g/dl L 07/24/25 WBC, (4.8-10.8) 7.1 X10*3/uL 07/24/25 Plt Count, (160-400) 151 X10*3/uL L 07/24/25 Sodium, (135-145) 141 mmol/L 07/24/25 Potassium, (3.3-5.1) 5.0 mmol/L 07/24/25 Chloride, (96-108) 112 mmol/L H 07/24/25 Carbon Dioxide, (22-29) 23 mmol/L 07/24/25 BUN, (9-16) 33 mg/dL H 07/24/25 Creatinine, (0.5-1.4) 1.80 mg/dL H 07/24/25 Calcium, (8.4-10.2) 9.6 mg/dL Δ 02/07/25 Phosphorus, (2.7-4.5) 4.1 mg/dL 02/07/25 PTH Intact, (8.7-77.1) 174.7 pg/mL H 02/07/25 Assessment & Plan Assessment & Plan (1) Hypertension: Code(s): I10 - Essential (primary) hypertension Category: Medical Qualifiers: Hypertension type: primary hypertension Qualified Code(s): I10 - Essential (primary) hypertension (2) CKD stage 3a, GFR 45-59 ml/min: Code(s): N18.31 - Chronic kidney disease, stage 3a Category: Medical Plan She has CKD 3 from vascular disease, DM and hypertension. She has good urine output. She could continue Spironolactone 12.5 mg daily. C/W Jardiance 25 mg daily. She likely will need calcitriol at the next visit. I asked her to C/W good hydration for now. She should avoid NSAID's. Follow up blood work ordered in 2 M Orders: Orders Complete Blood Count Auto Diff 2 Months I10 - Essential (primary) hypertension, N18.31 - Chronic kidney disease, stage 3a Calcium 2 Months I10 - Essential (primary) hypertension, N18.31 - Chronic kidney disease, stage 3a Blood Urea Nitrogen 2 Months I10 - Essential (primary) hypertension, N18.31 - Chronic kidney disease, stage 3a Electrolytes 2 Months I10 - Essential (primary) hypertension, N18.31 - Chronic kidney disease, stage 3a Creatinine 2 Months I10 - Essential (primary) hypertension, N18.31 - Chronic kidney disease, stage 3a Phosphorus 2 Months I10 - Essential (primary) hypertension, N18.31 - Chronic kidney disease, stage 3a Parathyroid Hormone Intact 2 Months I10 - Essential (primary) hypertension, N18.31 - Chronic kidney disease, stage 3a Vitamin D 25-OH Total 2 Months I10 - Essential (primary) hypertension, N18.31 - Chronic kidney disease, stage 3a Coding Level of Care Code Est Pt Level 4 (64015) Diagnoses Primary hypertension I10 Hypertension type: primary hypertension CKD stage 3a, GFR 45-59 ml/min N18.31
[2025-07-28 15:26] VITALS: BP 110/50; PULSE 57; O2SAT 98; BMI 29.2
== END 2025-07-28 15:54 | disposition home or self-care (01) ==
LOC: HO.HKA 15:07
PROVIDERS: PCP Internal Medicine; Visit Provider Internal Medicine Nephrology
DX: I10 Essential (primary) hypertension (principal); N18.31 Chronic kidney disease, stage 3a
CPT/HCPCS: 99214

== ENCOUNTER → 2025-07-28 15:06 | Outpatient (BNVA) | payer MEDICARE, OTHER, SELFPAY | PROVIDERS: PCP Internal Medicine; Visit Provider Internal Medicine Nephrology | DX: N18.31 Chronic kidney disease, stage 3a (principal); I10 Essential (primary) hypertension; E11.9 Type 2 diabetes mellitus without complications | CPT/HCPCS: 99212 ==